=== PATIENT | female | born 1930 | race Caucasian/White ===

== ENCOUNTER 2016-06-22 16:40 | Inpatient (IN) | payer OTHER, MEDICARE ==
[~2016-06-22] VITALS: Ht 160 cm; Wt 55.3 kg
[~2016-06-22 16:40] MED LIST: ALPHAGAN P5 M1 OPH; CALCIUM 600/VIT1 TAB PO; CIPRO500 M1 PO; CIPROFLOXACIN500 M2 PO; DOCUSATE SODIU100 MG PO; DORZOLAMIDE HCL10 M1 OPH; DULERA 200 MCG/13 GM INH; FLAGYL500 MG PO; HYDROCHLOROTHIA25 M1 PO; LATANOPROST 2.2.5 ML OP; LEVSIN-SL0.125 MG SL; LISINOPRIL40 M1 PO; NASONEX0.05 MG/Ac NAS; OMEPRAZOLE40 M1 PO; PERCOCET 325 MG1 TA2 PO; PREDNISONE10 MG PO; PREDNISONE20 M1 PO; PREDNISONE5 M1 PO; PROVENTIL HFA6.7 GM INH; SENOKOT NATURA8.6 MG PO; SENOKOT8.6 M2 PO; SPIRIVA18 MCG INH; SYMBICORT 160/41 PUF INH; Senokot S PO; THEOPHYLLINE A200 MG PO; THEOPHYLLINE400 MG PO; ULTRAM50 M1 PO; VITAMIN D2000 UNIT PO; VITAMIN D400 I1 PO; XALATAN2.5 ML OPH; XANAX0.5 M1 PO; ZOFRAN ODT4 M1 SL
--- NOTE | 2016-06-22 16:43 | ED GENERAL ADULT ---
See Addendum History of Present Illness General Chief Complaint: Low Back Pain/Injury Stated Complaint: BIBA FOR LOW BACK PAIN Source: patient, family Exam Limitations: no limitations Vital Signs & Intake/Output Vital Signs & Intake/Output Vital Signs Date Time Temp Pulse Resp B/P Pulse O2 O2 Flow FiO2 Ox Delivery Rate 06/22 1911 98.0 101 22 135/96 95 Nasal 5.0L Cannula 06/22 1738 95 Nasal 5.0L Cannula 06/22 1646 97.8 89 24 145/69 96 Nasal 6.0L Cannula Allergies Coded Allergies: Penicillins (Severe, HIVES, RASH 06/22/16) Uncoded Allergies: POLLENS (UNKNOWN 04/08/14) Reconcile Medications Albuterol Sulfate (Proventil Hfa) 90 MCG HFA.AER.AD 2 PUFF INH Q4P PRN SOB ( Reported) Alprazolam (Xanax) 0.5 MG TABLET 1 TAB PO QPM PRN ANXIETY (Reported) Brimonidine Tartrate (Brimonidine Tartrate 10 Ml) 0.15 % DROPS 1 DROP OP BID GLAUCOMA (Reported) Cholecalciferol (Vitamin D3) 1,000 UNIT TABLET 2 TAB PO DAILY SUPPLEMENT ( Reported) Dorzolamide HCl 2 % DROPS 1 GTT OPH BID GLAUCOMA (Reported) Furosemide 20 MG TABLET 1 TAB PO DAILY EDEMA (Reported) Hydrochlorothiazide (Hydrodiuril 25 MG Tab) 25 MG TABLET 1 TAB PO DAILY BP ( Reported) Hydrochlorothiazide 12.5 MG CAPSULE 1 CAP PO DAILY BP (Reported) Latanoprost (Xalatan) 2.5 ML DROPS 1 GTT OPH QPM GLAUCOMA (Reported) BOTH EYES Lisinopril 40 MG TABLET 1 TAB PO DAILY BP (Reported) Melatonin 5 MG CAPSULE 1 CAP PO QPM INSOMNIA (Reported) Mometasone Furoate (Nasonex) 50 MCG SPRAY.PUMP 1 SPRAY NASB DAILY NEEDED NASAL CONGESTION (Reported) Mometasone/Formoterol (Dulera 200 Mcg/5 Mcg Inhaler) 13 GM HFA.AER.AD 2 PUF INH BID COPD (Reported) Omeprazole 40 MG CAPSULE.DR 1 CAP PO DAILY AC HEARTBURN (Reported) Prednisone 5 MG TABLET 1 TAB PO DAILY COPD (Reported) take 10mg on 10/30/15 then take 5mg daily x 10days then stop! please see your sales and marketing representative prior to stopping. Theophylline Anhydrous (Theophylline) 400 MG TABLET.ER 0.5 TAB PO BID COPD ( Reported) Tiotropium Foley (Spiriva) 18 MCG CAP.W.DEV 1 CAP INH DAILY EMPHYSEMA ( Reported) Tramadol HCl (Ultram) 50 MG TABLET 1 TAB PO BIDP PRN PAIN (Reported) Triage Nurses Notes Reviewed? yes Onset: Abrupt Duration: day(s): Timing: recent history HPI: 06/22/16 5:30 PM 86-year-old female presents to the emergency department for severe low back pain. The patient came in by ambulance for back pain that's been going on for 5 days. The onset of the symptoms were abrupt, the duration has been 5 days, the severity significant is as her symptoms required her to come to the emergency department by ambulance for care. She has no associated fever abdominal pain or other complaints. She says that the pain is exacerbated by movement. She has a past medical history of severe end-stage COPD she is currently on 6 L home O2, on physical exam she does have significant tenderness to the lower lumbar spine. She is on tramadol and gets relief from this. She has no bowel or bladder dysfunction Past History Travel History Traveled to [place] past 21 day No Medical History Any Pertinent Medical History? see below for history Neurological: NONE EENT: glaucoma, OXYGEN DEPEDENT 5L AT [employer] Cardiovascular: hypertension, hyperlipidemia Respiratory: COPD (O2 dependent (5L at home)), emphysema Gastrointestinal: GERD Hepatic: NONE Renal: NONE Musculoskeletal: NONE Psychiatric: anxiety Endocrine: NONE Blood Disorders: NONE Cancer(s): NONE FIELD AIDE/Reproductive: NONE Other Medical Hx: vitamin D deficiency History of MRSA: No History of VRE: No History of CDIFF: No Pneumonia Vaccine: 01/07/15 Tetanus Vaccine: 04/09/14 Surgical History Surgical History: appendectomy Psychosocial History Who do you live with Son Services at Home Home Health Aide What is your primary language Citizen [place] Family History Family History, If Any: FATHER CVA Hx Contributory? No Review of Systems Review of Systems Constitutional: Denies: fever. EENTM: Denies: visual changes. Respiratory: Denies: short of breath (sob chronic on dong, not today). Cardiovascular: Denies: chest pain. GI: Denies: abdominal pain. Genitourinary: Reports: no symptoms. Musculoskeletal: Reports: back pain. Skin: Denies: rash. Neurological/Psychological: Denies: weakness. Hematologic/Endocrine: Denies: bleeding. Immunologic/Allergic: Reports: no symptoms. Physical Exam Physical Exam General Appearance: alert, awake, anxious, mild distress Head: atraumatic, normal appearance Eyes: Bilateral: normal appearance, PERRL, EOMI. Ears, Nose, Throat: normal pharynx, normal ENT inspection Neck: normal inspection, supple, full range of motion Respiratory: no respiratory distress, decreased breath sounds Cardiovascular: regular rate/rhythm Peripheral Pulses: 4+ radial (R), 4+ radial (L) Gastrointestinal: non-tender Back: decreased range of motion Extremities: no edema Neurologic/Psych: no motor/sensory deficits, awake, alert, oriented x 3 Skin: intact, normal color, warm/dry Core Measures ACS in differential dx? No CVA/TIA Diagnosis: No Severe Sepsis Present: No Septic Shock Present: No Progress Differential Diagnoses I considered the following diagnoses in my evaluation of the patient: [ Impression fracture, disc herniation, lumbar strain, epidural abscess, transverse myelitis] Plan of Care: Orders Procedure Date/time Status XRY-PORTABLE CHEST XRAY 06/22 1917 Active URINALYSIS 06/22 1917 Active COMPREHENSIVE METABOLIC PANEL 06/22 1917 Active CBC WITHOUT DIFFERENTIAL 06/22 1917 Active EKG 06/22 1917 Active Initial ED EKG: none Departure Departure Disposition: STILL A PATIENT Condition: Stable Clinical Impression Primary Impression: Back pain Referrals: KELTON LONG,DEVANTE [place] (PCP/Family) Departure Forms: Customer Survey General Discharge Information Comments Patient CT shows severe spinal stenosis and arthritis. She is unable to ambulate. Labs will be sent. She is for case management evaluation and likely PT consult in the a.m. IMPRESSION: No compression fractures. Moderate leftward curvature of the lumbar spine with significant degenerative endplate changes at L3-L4 lateralized to the right side. Moderate central canal stenosis at this level. Mild to moderate central canal stenosis at L2-L3 as a result of spondylosis. Mild anterior subluxation at L4-L5 with advanced facet arthropathy and degenerative disc disease resulting in severe central canal stenosis. DICTATED BY: ESTIVEN GALLEGOS MD DATE/TIME DICTATED:06/22/161831 MATERNITY FLOOR SUPERVISOR:LANRE DATE/TIME TRANSCRIBED:06/22/161831 CONFIDENTIAL, DO NOT COPY WITHOUT APPROPRIATE AUTHORIZATION. <Electronically signed in Other Vendor System> SIGNED BY: ESTIVEN GALLEGOS MD [id number] Critical Care Note Critical Care Note Critical Care Time: non-applicable
--- NOTE | 2016-06-22 16:57 | NUR ---
PT BIBA FROM HOME C/C LOW BACK PAIN X 3-4 DAYS. NO INJURY OR AGGRAVATING FACTOR. STATES PAIN IS POSITIONAL. CURRENTLY ON STRETCHER RATES PAIN 2/10. TAKES TRAMADOL BID AT BASELINE BUT HAS NOT TAKEN ANY ADDITIONAL PAIN MEDICATIONS. PMHX INCLUDES EMPHYSEMA AND O2 DEPENDENT AT 5-7L AT BASELINE. STATES SHE USES 7L AT TIMES WHEN SHE IS ESPECIALLY EXERTIONAL AND BREATHING FEELS OK NOW ON 5L. SATS 98%.
--- NOTE | 2016-06-22 17:18 | NUR ---
DR BERMUDEZ INTO EVALUATE
[2016-06-22] MEDS ORDERED: FUROSEMIDE20 M1 PO (17:23)
[2016-06-22] MEDS ORDERED: HYDROCHLOROTH12.5 M3 PO (17:23)
[2016-06-22] MEDS ORDERED: VITAMIN D31000 UNI2 PO (17:27)
[2016-06-22] MEDS ORDERED: NASONEX17 GM NASB ×2 (17:29→17:30)
[2016-06-22] MEDS ORDERED: MELATONIN5 M5 PO (17:31)
--- NOTE | 2016-06-22 17:38 | NUR ---
PT MEDICATED WITH ULTRAM PER ORDERS
--- NOTE | 2016-06-22 18:47 | NUR ---
CT SCAN RESULTS PENDING
--- NOTE | 2016-06-22 18:49 | CT SCAN REPORT ---
EXAMINATION: CT LUMBAR SPINE WITHOUT CONTRAST CLINICAL INFORMATION: Back pain. Rule out compression fracture. COMPARISON: CT from 10/25/2015. TECHNIQUE: Helical non-contrast CT images were obtained through the lumbar spine and 1.25 and 2.5 mm axial reconstructions were reviewed along with sagittal and coronal MPRs. DLP: 330.1 mGy-cm FINDINGS: There is a moderate leftward curvature of the mid lumbar spine. Severe degenerative endplate changes are noted on the right side at the L3-L4 level with osteophyte formation, sclerosis, and vacuum disc phenomenon. There is a mild anterior subluxation at L4-L5. Exuberant multilevel facet arthropathy is present, most severe at L4-L5 and L5-S1 on the left side. The paraspinal soft tissues are normal. There is subsegmental atelectasis in the lung bases with extensive emphysema. Scattered sigmoid colon diverticulosis. There is a diffuse disc bulge and mild to moderate central canal stenosis with facet degeneration at L2-L3. At the L3-L4 level, there is moderate central canal stenosis with severe loss of disc height and degenerative endplate changes lateralize more so to the right side. Severe central canal stenosis is evident at L4-L5 with advanced facet arthropathy and thickening of the ligamentum flavum with a mild anterolisthesis. Extensive vascular calcifications present with tortuosity of the abdominal aorta. IMPRESSION: No compression fractures. Moderate leftward curvature of the lumbar spine with significant degenerative endplate changes at L3-L4 lateralized to the right side. Moderate central canal stenosis at this level. Mild to moderate central canal stenosis at L2-L3 as a result of spondylosis. Mild anterior subluxation at L4-L5 with advanced facet arthropathy and degenerative disc disease resulting in severe central canal stenosis.
--- NOTE | 2016-06-22 19:52 | RADIOLOGY REPORT ---
EXAMINATION: CHEST 1 VIEW CLINICAL INFORMATION: Pain. COMPARISON: 10/21/2015. TECHNIQUE: An AP view of the chest is provided. FINDINGS: The cardiac silhouette is not enlarged. The mediastinal and hilar contours are unremarkable. There are neither pleural effusions nor pneumothoraces. There is streaky bibasilar opacification. The osseous structures are stable. IMPRESSION: Nonspecific streaky bibasilar opacification. This likely corresponds to atelectasis, though a developing infiltrate is difficult to exclude. Recommendation is for a followup chest series to be obtained following treatment and/or resolution of symptoms to assure resolution of this appearance.
--- NOTE | 2016-06-22 20:01 | NUR ---
EKG AND LABS DONE(BLUE,SST,LAV,SUÁREZ)
[2016-06-22 20:17] LABS: ABSOLUTE BASOPHIL COUNT 0 /CUMM (0.0-0.2); ABSOLUTE EOSINOPHIL COUNT 0.3 /CUMM (0.0-0.7); ABSOLUTE GRANULOCYTE CT 6.7 /CUMM (1.4-6.5); ABSOLUTE LYMPH COUNT 1.1 /CUMM (1.2-3.4); ABSOLUTE MONOCYTE COUNT 0.8 /CUMM (0.10-0.60); BASOPHIL % 0.2 % (0.0-2.0); GRANULOCYTE % 75.5 % (42.2-75.2); HEMATOCRIT 39.1 % (37-47); MEAN CORPUSCULAR HGB 30.3 PG (27.0-31.0); MEAN CORPUSCULAR HGB CONC 32.7 G/DL (33.0-37.0); MEAN CORPUSCULAR VOLUME 92.7 FL (81.0-99.0); PLATELET COUNT 233 /CUMM (130-400); RBC DISTRIBUTION WIDTH 13.7 % (11.5-14.5); RED BLOOD CELL CT 4.22 /CUMM (4.20-5.40); WHITE BLOOD CELL COUNT 8.9 /CUMM (4.8-10.8)
--- NOTE | 2016-06-22 20:25 | NUR ---
PT C/O 12/16 PAIN. PT MEDICATED WITH PAIN MEDS PER ORDER.
--- NOTE | 2016-06-22 20:35 | NUR ---
PT REPORTS FEELING SOB. PT REPORTS ONLY INHALER WORKING. PT MEDICATED WITH INHALER PER ORDER.
--- NOTE | 2016-06-22 20:54 | NUR ---
PT DENIES PAIN AFTER BEING MEDICATED
--- NOTE | 2016-06-22 21:11 | NUR ---
PT TO BEDSIDE COMMODE,URINE TRIO SENT
--- NOTE | 2016-06-22 21:17 | NUR ---
PT APPEARS TO BE RESTING COMFORTBALY. RESP UNLABORED. PT REPORTS BREATHING IMPROVING AFTER INHALER. 100% 5 L NC. DENIES PAIN. WILL CONTINUE TO MONITOR.
[2016-06-22] MEDS ORDERED: ALPRAZOLAM0.25 M1 PO (21:45)
[2016-06-22] MEDS ORDERED: LATANOPROST2.5 ML OPH (21:45)
[2016-06-22] MEDS ORDERED: SPIRIVA RESPIMAT4 GM INH (22:03)
[2016-06-22] MEDS ORDERED: POTASSIUM CHLO20 ME2 PO (22:03)
--- NOTE | 2016-06-22 22:30 | NUR ---
PT AMBULATED. INCREASE SOB NOTED. PULSE OX DROPPED TO 90% WHILE AMBULATING WITH 4 L NC.
--- NOTE | 2016-06-22 22:43 | NUR ---
ATTEMPTED TO AMBULATED PT. PT AMBULATED BUT UNABLE TO AMBULATE PASS THE ROOM DOOR DUE TO WEAKNESS AND BEING UNSTEADY ON FEET. INCREASE SOB NOTED. PT PULSE OX DROPPED TO 90% 4 L NC.
--- NOTE | 2016-06-22 23:15 | History & Physical ---
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 Patient claims that she is having gradually progressive back pain since last 5-7 days, which is located in lower back, 02/15, nonradiating, relieved by taking rest and having no movement in the body, aggravated by any kind of movements. She denies trauma, fall, incontinence of stool in the urine, tingling and numbness in the lower legs, pain in the lower abdomen, dysuria, fever, chills. She is a known case of end-stage COPD on nebulization on 5 liters of home oxygen. She was on tablet prednisone 5 milligrams once a day. She is using 3 pillows at baseline and cannot walk more than 2-5 steps without having difficulty in breathing. Now today she is not able to complete a sentence without difficulty in breathing. She is following Dr. Seals. She is taking tramadol since last 6 years, which she started because she had spontaneous fracture. Personal history-she quit the smoking 30 years ago, she occasionally drinks alcohol, she is living alone at home. 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 yes Review of Systems Review of Systems Constitutional: Reports: weakness. Denies: chills, diaphoresis, fever. EENTM: Denies: no symptoms. Cardiovascular: Reports: orthopena, palpitations. Denies: chest pain, edema, peripheral edema, syncope. Respiratory: Reports: orthopnea, short of breath. Denies: cough, hemoptysis, sputum production, wheezing. GI: Denies: abdominal pain, bloating, constipation, diarrhea, distention, bowel incontinence, melena, nausea, bloody stool. Genitourinary: Denies: discharge, dysuria, frequency, hematuria, hesitation. Musculoskeletal: Reports: back pain, joint pain, joint swelling. Skin: Reports: erythema. Neurological/Psychological: Reports: anxiety, dementia. Exam & Diagnostic Data Last 24 Hrs of Vital Signs/I&O Vital Signs Date Time Temp Pulse Resp B/P Pulse O2 O2 Flow FiO2 Ox Delivery Rate 06/22 2232 98.3 96 24 169/79 97 Nasal 5.0L Cannula 06/22 2100 98.3 76 20 172/74 99 Nasal Cannula 06/22 1912 98.0 101 22 135/96 95 Nasal 5.0L Cannula 06/22 1738 95 Nasal 5.0L Cannula 06/22 1646 97.8 89 24 145/69 96 Nasal 6.0L Cannula Intake & Output 06/23 0800 06/23 0000 06/22 1600 Intake Total 120 Output Total Balance 120 Intake, Oral 120 Patient 55.338 kg Weight Physical Exam General Appearance Alert, Oriented X3, Cooperative, No Acute Distress Skin erythema HEENT Atraumatic, PERRLA, EOMI Neck Supple, No JVD Cardiovascular Normal S1, Normal S2, murmur Lungs decrease air entry, she is not able to complete the sentence Abdomen Soft, No Tenderness Neurological Normal Speech Extremities No Clubbing, No Cyanosis, increased edema in the left lower limb than the right Vascular Normal Pulses, Pulses Symmetrical Assessment/Plan Assessment: Patient is a 86-year-old female with significant past medical history of 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 Vital signs at the time of admission-temperature 97.8, pulse 89, respiration 24, blood pressure 145 69, SPO2 96% on 5 liters of oxygen Chest [id number] streaky bibasilar opacification? Atelectasis CT Lumbar spine without contrast-no compression fractures, degenerative endplate changes and moderate central canal stenosis at L3-L4, mild to moderate central canal stenosis at L2 to L3, mild anterior subluxation at L4 to L5 with advanced facet arthropathy and degenerative disc disease resulting in severe central canal stenosis Pertinent labs-creatinine 1.1, serum theophylline level-4.5,urine ketones - trace. Problem list- Moderate to severe central canal stenosis at L2-L3, L3-L4, L4-L5 End-stage COPD on 5 liter of oxygen and steroid Hypertension History of cholelithiasis and cholecystitis Plan- * We'll admit the patient in general medical floor * We will give oxygen with target SPO2 of more than 92% * TRC/nebulization * We will add pain killer including tramadol as before * We'll hold furosemide and hydrochlorothiazide, because of the high creatinine * We will follow BEP regularly * We'll continue tablet prednisone 5 milligrams daily * We will place a consult for pulmonology/Dr. Seals in the morning * Will do Doppler ultrasound of lower extremity to rule out DVT * PT/OT * CODE STATUS-DNR/DNI * Diet-heart healthy diet * DVT prophylaxis-ALP S/haprine As Ranked By This Provider Problem List: 1. COPD (chronic obstructive pulmonary disease) 2. Choledocholithiasis 3. HTN (hypertension) Core Measures/Miscellaneous Acute Coronary Syndrome ACS Diagnosis: No Cerebrovascular Accident CVA/TIA Diagnosis: No Congestive Heart Failure CHF Diagnosis: No Venous Thromboembolism VTE Risk Factors: Age > 40 VTE Prophylaxis Ordered Inpt: Mechanical (ALPS/TEDS) No Mech VTE prophylaxis d/t: No contraindications No VTE Pharm Prophylaxis d/t: No contraindications VTE Diagnosis: No VTE Type: NONE VTE Confirmed by (Test): NONE Severe Sepsis Severe Sepsis Present: No Septic Shock Septic Shock Present: No Miscellaneous Documentation Attending Case Discussed With: MIGUEL ÁNGEL ZIMMERMAN MD Primary Care Physician: MANCHER MD,DEVANTE E. Patient sees these Specialists Dr. Seals Level of Patient Care: General Medicine EVARISTO MEJIA 06/22/16 2315: General Information and HPI Allergies/Medications Home Med list Albuterol Sulfate (Proventil Hfa) 90 MCG HFA.AER.AD 2 PUF INH Q4 PRN SOB ( Reported) Alprazolam 0.25 MG TABLET 2 TAB PO 2300 SLEEP (Reported) Brimonidine Tartrate (Alphagan P) (Unknown Strength) DROPS 1 DROP OPH BID GLAUCOMA - BOTH EYES (Reported) Cholecalciferol (Vitamin D3) 1,000 UNIT TABLET 2 TAB PO QAM SUPPLEMENT ( Reported) Dorzolamide HCl 2 % DROPS 1 GTT OPH BID GLAUCOMA - BOTH EYES (Reported) Furosemide 20 MG TABLET 1 TAB PO QAM EDEMA (Reported) Hydrochlorothiazide 12.5 MG CAPSULE 1 CAP PO QAM BP (Reported) Latanoprost (Xalatan) 2.5 ML DROPS 1 GTT OPH 1900 GLAUCOMA (Reported) BOTH EYES Mometasone Furoate (Nasonex) 50 MCG SPRAY.PUMP 1 SPRAY NASB DAILY NEEDED NASAL CONGESTION (Reported) Mometasone/Formoterol (Dulera 200 Mcg/5 Mcg Inhaler) 13 GM HFA.AER.AD 2 PUF INH Q12H COPD (Reported) Omeprazole 40 MG CAPSULE.DR 1 CAP PO DAILY AC HEARTBURN (Reported) Potassium Chloride 20 MEQ TAB.ER.PRT 1 TAB PO DAILY SUPPLEMENT (Reported) Prednisone 5 MG TABLET 1 TAB PO QAM COPD (Reported) take 10mg on 10/30/15 then take 5mg daily x 10days then stop! please see your director case management prior to stopping. Theophylline Anhydrous (Theophylline) 400 MG TABLET.ER 0.5 TAB PO QAM COPD ( Reported) Tiotropium [place] (Spiriva Respimat) 2.5 MCG/ACTUATION MIST.INHAL 2 PUFF INH QAM COPD (Reported) Tramadol HCl (Ultram) 50 MG TABLET 1 TAB PO BIDP PRN PAIN (Reported) Resident Review Statement Resident Statement: examined this patient, discussed with corporate communications intern, agreed with corporate communications intern Other Findings: Patient is 86-year-old female with past medical history significant for end-stage COPD/emphysema on 5 L of oxygen at home, hypertension and chronic pain came with chief complaint of his severe worsening back pain for 1 week. Patient endorses that she had some indigestion 2 weeks ago but that was relieved with Pepcid. She start having low back pain/lumbar region started a week ago gradually is getting worse to the point she graded this 8 out of 10, nonradiating with no association of numbness or tingling in her extremities and minimal relief with pain medications at home. There is no urinary or fecal incontinence. Her pain get worse with slight movement and slight relief with tramadol. She denied chest pain, palpitations, headache, dizziness, nausea, vomiting any urinary or bowel complaints. She is very short of breath and not able to speak in full sentences without getting short of breath for a long period of time but her condition is worsening gradually. Ryan Seals MD is her director case management. She is on chronic prednisone and had recent taper as well. She mentioned in her interview that she is compliant with her inhalers but does not want to use nebulizers. While patient was in ER her back pain get little better but on ambulation she dropped her oxygen saturation to 90% Vital signs at admission were temperature 97.8, pulse 89, respiratory rate 24, blood pressure 145/69 mmHg and she said was saturating 96% on 6 L of nasal cannula oxygen. Labs on admission were WBC count 8.9, hemoglobin 12.8, hematocrit 39.1, platelet count 233, sodium 137, potassium 3.9, chloride 91, the urine 24 and creatinine 1.1. Spinal CAT scan showed no compression fractures, moderate leftward curvature of lumbar spine with significant degenerative endplate changes at L3/L4 and moderate central canal stenosis. Physical exam Alert and oriented 3, labored breathing with accessory respiratory muscle use Neck supple Chest reduced air entry Heart S1-S2 with no added sounds Abdomen soft with normal bowel sounds Back showed paraspinal tenderness over lumbar region especially on right paraspinal area Extremities showed left lower extremity trace edema Assessment and plan Patient is 86 years old female with past medical history significant for end-stage COPD/emphysema on 5 L home oxygen, hypertension and chronic pain came with chief complaint of severe lumbar region back pain with no evidence of compression fracture on CAT scan most likely musculoskeletal in origin and hypoxia on ambulation most likely due to underlying end-stage COPD. Problem list 1. Severe back pain/spinal stenosis 2. Chronic respiratory failure/end-stage oxygen dependent COPD 3. History of hypertension 4. History of chronic pain/compression fracture 5. History of anxiety Plan We will admit patient to general medical floor Patient is on chronic prednisone 5 mg daily we will continue that and hold off IV prednisone and will request Dr. Seals to evaluate patient in a.m. Adequate analgesia for pain control PT/OT evaluation and treatment TRC and nebulization Chest physical therapy We will continue on her home medications except Lasix and hydrochlorothiazide because of elevated creatinine most likely a AK I and we will send BP in a.m. if needed can give gentle hydration later. On examination she has trace left lower extremity edema more than right BUT CHRONIC Regular Diet Pharmacological DVT prophylaxis Patient is DNI DNR MIGUEL ÁNGEL ZIMMERMAN 06/23/16 0336: Attending MD Review Statement Attending Statement Attending MD Statement: examined this patient, discuss w/resident/PA/SEARCH ENGINE MARKETING STRATEGIST, agreed w/resident/PA/SEARCH ENGINE MARKETING STRATEGIST, reviewed EMR data (avail), reviewed images, amended to note Attending Assessment/Plan: CC: Right-sided low back pain PMH: COPD/emphysema 5 L NC, HTN, HLD, anxiety She came to the ER for severe low back pain, by ambulance. The back pain has been going on for 5 days. The onset of the symptoms were abrupt, does not recall trauma or fall. She is lot of difficulty ambulating around home because of her severe shortness of breath, she has not been going out a lot. She could not go to PCP for this reason, so she came to ER as the pain was not bearable anymore. The pain relieved after pain medications in ER, aggravated by movements. She has no associated fever, abdominal pain, nausea, vomiting, urinary symptoms, bowel or bladder incontinence or other complaints. Patient has been feeling very poorly since last 2 months gradually worsening shortness of breath. Functionality is markedly limited because of progression of the disease. Markedly decreased appetite. Her home medications included Lasix, lisinopril, HCTZ. A lot of changes had been made back and forth regarding this medications by director case management and PCP separately . Patient is confused and wants to speak to Dr. Seals about clarifying the home medications. More so with HCTZ and Lasix. She gets on and off bilateral leg swellings, weight gain which was getting better with Lasix and HCTZ, but her blood pressure was in softer range in PCP office so HCTZ was stopped, eventually resumed again at lower dose. She has severe end-stage COPD she is currently on 6 L home O2. She is aware of her severe disease and progression but her goal is to at least walk around in house without discomfort. Her back pain improved after receiving tramadol, Toradol in ER. She was evaluated for ambulation when her O2 saturation dropped to 90% and she became visibly dyspneic so we were suggested to admit patient. Vitals: Afebrile, HR, BP in in acceptable range. Tachypneic with on R 24 requiring 5 L nasal cannula to saturate at 97%. On exam: Thin built, obvious respiratory distress, accessory muscles and work, talks small sentences a O 3, no JVD, no lymphadenopathy, mucosa moist, neck supple. CVS: S1-S2, RRR. RS: Markedly decreased air entry bilaterally with prolonged expiration. No obvious wheeze heard. Abdomen: Soft, NT, ND, Carrasco's sign negative, no epigastric tenderness, bowel sounds present. Tenderness over right lower aspect of back, no bony tenderness, no obvious lesions. Skin intact, no inflammations. No focal neurological deficit. No obvious pitting edema on lower extremity Labs: CBC, BMP, LFT unremarkable Except Bicarbonate 35, BUN 24 Creatinine is mildly elevated to 1.1. UA unremarkable CXR: Nonspecific streaky bibasilar opacification. This likely corresponds to atelectasis, though a developing infiltrate is difficult to exclude. CT lumbar spine without IV contrast: No compression fractures. Moderate leftward curvature of the lumbar spine with significant degenerative endplate changes at L3-L4 lateralized to the right side. Moderate central canal stenosis at this level. Mild to moderate central canal stenosis at L2-L3 as a result of spondylosis. Mild anterior subluxation at L4-L5 with advanced facet arthropathy and degenerative disc disease resulting in severe central canal stenosis. A and P #1 right-sided low back pain: Patient has degenerative endplate changes at L3-L4 lateralizing to the right side. Probably radiculopathy pain, no obvious fractures, no obvious neurological deficits, no evidence of cord compression. Continue pain management with tramadol and Percocet, OT PT evaluation in a.m. #2 COPD/ emphysema: Chronic progressive worsening. Less likely acute exacerbation at this point. I offered a short course of by mouth prednisone to her but she refuses any medications for now until she talks with Dr. Seals, please consult Ryan Seals MD in a.m. continue all her home medications for COPD pro-air inhalations every 4 hours, scheduled Symbicort and Spiriva, Continue O2 by nasal cannula. #3 I offered her 2-D echo to evaluate cardiac functioning and strain secondary to pulmonary disease, because of her recurrent lower extremity edema. Patient wants to discuss that with Dr. Seals. Check proBNP sampling lab. #4 HTN : Hold all her antihypertensives for mildly elevated creatinine, resume in a.m. according to her repeat labs. #5 DVT prophylaxis with heparin
--- NOTE | 2016-06-22 23:58 | NUR ---
BED ASSIGNMENT [id number]
--- NOTE | 2016-06-23 02:00 | NUR ---
PT A&0x3, DENIES PAIN AT THIS TIME. VSS, 5L HUMIDIFIED NC. ORIENTED TO ROOM AND CALL GREY IN REACH.
[2016-06-23 02:03] VITALS: BP 110/80
--- NOTE | 2016-06-23 03:39 | Admission Certification ---
Admission Certification Certification Statement - As attending physician, I certify that at the time of - admission, based on clinical presentation, severity of - symptoms, need for further diagnostic testing and - therapeutic interventions, and risk of adverse outcomes - without in-hospital treatment, in my clinical assessment, - this patient requires an acute hospital stay for a minimum - of two nights or longer. I have also considered psychsocial - factors such as support system, advanced age, financial - issues, cognitive issues, and failed out-patient treatments, - past re-admission history, safety of patient, and lack of - compliance as applicable. Specific rationale supporting this admission is: Intractable back pain, severe COPD with hypoxia
[2016-06-23 05:32] VITALS: BP 140/68
--- NOTE | 2016-06-23 07:58 | PN- Housestaff ---
CLIFFORD BRIONES 06/23/16 0757: Subjective Follow-up For: Back pain Subjective: She was uncomfortable this morning. Did not have any complaints stated that she feels improved compared to yesterday. Oxygen saturations remained in the range of 94-96% on 5 L. Remained afebrile overnight. States that she feels improved compared to yesterday. After receiving pain medications, she feels improved. Review of Systems Constitutional: Reports: see HPI. Objective Last 24 Hrs of Vital Signs/I&O Vital Signs Date Time Temp Pulse Resp B/P Pulse O2 O2 Flow FiO2 Ox Delivery Rate 06/23 0532 97.9 74 20 140/68 96 Nasal 5.0L Cannula 06/23 0203 97.9 86 24 110/80 97 Nasal 5.0L Cannula 06/23 0200 96 Nasal 5.0L Cannula 06/22 2232 98.3 96 24 169/79 97 Nasal 5.0L Cannula 06/22 2100 98.3 76 20 172/74 99 Nasal Cannula 06/22 1912 98.0 101 22 135/96 95 Nasal 5.0L Cannula 06/22 1738 95 Nasal 5.0L Cannula 06/22 1646 97.8 89 24 145/69 96 Nasal 6.0L Cannula Intake & Output 06/23 0800 06/23 0000 06/22 1600 Intake Total 250 120 Output Total Balance 250 120 Intake, IV 10 Intake, Oral 240 120 Patient 122 lb 122 lb Weight Physical Exam General Appearance: No Acute Distress Other Physical Findings: General Exam: AAOx3, No acute distress, Skin: No rashes, no breakdown HEENT: PERRLA, EOMI Neck: Supple, No JVD No cervical lymphadenopathy CVS: Reg Rate, Normal S1,S2, No MGR Resp: Normal air entry, no ronchi/rales Abdomen: Soft, No tenderness, Normal Bowel Sounds Neuro: Normal Speech, Strength 5/5 b/l x 4 extremities, Sensation intact, CN III -XII NL, Reflexes 2+ Extremities: No cyanosis, pedal edema Current Medications: Current Medications Sig/Juan Carlos Start time Last Medication Dose Route Stop Time Status Admin Acetaminophen 650 MG Q6P PRN 06/22 2330 AC PO Acetaminophen/ 1 TAB Q6P PRN 06/22 2359 DC Hydrocodone Bitart PO Albuterol Sulfate 2 PUF Q4P PRN 06/23 0130 AC 06/23 INH 0751 Albuterol Sulfate 2 PUF Q4P PRN 06/22 2200 DC 06/23 INH 0015 Albuterol Sulfate 2 PUF ONCE ONE 06/22 2030 DC 06/22 INH 06/22 Alprazolam 0.5 MG 2300 06/23 2300 AC 06/23 PO 06/30 2259 0159 Budesonide/ 2 PUF BID 06/23 1000 DC Formoterol Fumarate INH Budesonide/ 2 PUF BID 06/23 0245 AC 06/23 Formoterol Fumarate INH 0751 Heparin Sodium 0 .STK-MED ONE 06/22 2350 DC (Porcine) .ROUTE Heparin Sodium 5,000 UNIT Q8 06/22 2326 AC 06/23 (Porcine) SC 0720 Hydromorphone HCl 0.5 MG Q4P PRN 06/22 2330 DC IV Ketorolac 0 .STK-MED ONE 06/22 2011 DC Tromethamine .ROUTE Ketorolac 15 MG ONCE ONE 06/22 1930 DC 06/22 Tromethamine IV 06/22 Lidocaine 1 PAT DAILY 06/23 1000 AC EXT Methylprednisolone 0 .STK-MED ONE 06/22 2011 DC .ROUTE Methylprednisolone 125 MG ONCE ONE 06/22 1930 DC 06/22 IV 06/22 Morphine Sulfate 0 .STK-MED ONE 06/22 2010 DC .ROUTE Morphine Sulfate 2 MG ONCE ONE 06/22 1930 DC 06/22 IV 06/22 Omeprazole 40 MG DAILY AC 06/23 0700 AC 06/23 PO 0720 Oxycodone HCl 10 MG Q4P PRN 06/23 0230 AC PO Oxycodone/ 1 TAB Q4P PRN 06/23 0145 AC Acetaminophen PO Oxycodone/ 2 TAB Q4P PRN 06/23 0145 CAN Acetaminophen PO Prednisone 5 MG DAILY 06/23 1000 AC PO Theophylline 200 MG DAILY 06/23 1000 AC PO Tiotropium [place] 1 PUF DAILY 06/23 1000 AC 06/23 INH 0751 Tramadol HCl 50 MG BID 06/23 1000 AC PO Tramadol HCl 0 .STK-MED ONE 06/22 1736 DC PO Tramadol HCl 50 MG ONCE ONE 06/22 1730 DC 06/22 PO 06/22 1731 1738 Last 24 Hrs of Lab/Jb Results Last 24 Hrs of Labs/Mics: Laboratory Tests 06/23/16 0640: Sodium Pending, Potassium Pending, Chloride Pending, Carbon Dioxide Pending, Anion Gap Pending, BUN Pending, Creatinine Pending, BUN/Creatinine Ratio Pending , CBC w Diff Pending, WBC Pending, RBC Pending, Hgb Pending, Hct Pending, MCV Pending, MCH Pending, RDW Pending, Plt Count Pending, MPV Pending, PUBS MCHC Pending 06/22/160: Urine Color YEL, Urine Clarity CLEAR, Urine pH 6.0, Ur Specific [place] 1.020, Urine Protein NEG, Urine Ketones TRACE H, Urine Nitrite NEG, Urine Bilirubin NEG, Urine Urobilinogen 0.2, Ur Leukocyte Esterase NEG, Ur Microscopic EXAM NOT REQUIRED, Urine Hemoglobin NEG, Urine Glucose NEG 06/22/161999: Anion Gap 11, Estimated GFR 47 L, BUN/Creatinine Ratio 21.8, Glucose 101 H, Calcium 9.4, Total Bilirubin 0.4, AST 23, ALT 44, Alkaline Phosphatase 118, Pro- B-Natriuretic Pept 1720 H, Total Protein 6.5, Albumin 3.4 L, Globulin 3.1, Albumin/Globulin Ratio 1.1, CBC w Diff NO MAN DIFF REQ, RBC 4.22, MCV 92.7, MCH 30.3, RDW 13.7, MPV 8.0, Gran % 75.5 H, Lymphocytes % 12.1 L, Monocytes % 9.2, Eosinophils % 3.0, Basophils % 0.2, Absolute Granulocytes 6.7 H, Absolute Lymphocytes 1.1 L, Absolute Monocytes 0.8 H, Absolute Eosinophils 0.3, Absolute Basophils 0, PUBS MCHC 32.7 L, Theophylline 4.5 L Assessment/Plan Assessment: An older lady with a 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 No neurological signs. Remained afebrile overnight. Vitals are stable. At the time of admission, vitals-temperature 97.8, pulse rate 89, respiration 24 , blood pressure 145/69, pulse ox 96% on nasal cannula (5 L). Laboratory findings indicated-WBC 8.9, hemoglobin 12.8, platelets 233, sodium 137, potassium 3.8, bicarbonate 35 (baseline 32), BUN 24, serum creatinine 1.1 (0.8 baseline). ProBNP slightly elevated 1720 (baseline 715), urinalysis-clear. Radiological signs-chest x-ray indicated nonspecific streaky bibasilar opacities. CAT scan lumbar spine without contrast-revealed mild to moderate central canal stenosis at L2-L3. Also mild anterior subluxation of L4-L5 with advanced facet arthropathy and degenerative disc disease resulting in severe central canal stenosis was found. Differential diagnoses: #1 lumbar pedicle operative/back pain #2 COPD Below is the problem list and plan: #1 back pain-no neurological deficits. Likely because of canal stenosis and degenerative changes. No fractures were found. Since the patient was on prednisone for a long time, further studies such as DEXA scan could be done as an outpatient. Pain management with tramadol 50 mg by mouth twice a day, Lidoderm patch, Percocet 1 tablet every 4 when necessary. Physical therapy assessment-home physical therapy as part of discharge planning. Neurosurgical evaluation as an outpatient. Bowel regimen added. #2 COPD-no change compared to baseline. Continue tiotropium 1 puff daily inhalation, theophylline 200 mg by mouth daily, (low theophylline levels found this a.m.), continue home dose of prednisone 5 mg by mouth daily, Symbicort 2 puffs twice a day. #3 hypertension-currently losartan, hydrochlorothiazide on hold. Blood pressure stable. If she becomes hypertensive, we will start medications stat. #4 abnormal renal function-serum creatinine slightly elevated to 1.1. Continue to monitor. Avoid NSAIDs. #5 left lower extremity swelling-negative for DVT. Encourage ambulation. #6 glaucoma-continue her home medications of brimonidine, latanoprost, dorzolamide. #6 DVT prophylaxis-heparin subcutaneous. Problem List: 1. Emphysema lung 2. Back pain 3. COPD (chronic obstructive pulmonary disease) Pain Ratin Pain Location: Lower back Pain Goal: Pain 4 or less Pain Plan: Tramadol Percocet Tomorrow's Labs & Rationales: Basic electrolyte panel-patient had serum creatinine which was slightly elevated. CBC-patient had leukopenia. To monitor in the a.m. ALEX EAGLE MD 06/23/16 1115: Attending Review Statement Attending Statement Attending MD Statement: examined this patient, discuss w/resident/PA/TELEPHONE CLERK, agreed w/resident/PA/TELEPHONE CLERK, reviewed EMR data (avail), discussed with nursing, discussed with case mgmt, reviewed images, amended to note Attending Assessment/Plan: Patient seen and examined, feels slightly better. Patient was admitted with excruciating and intractable low back pain yesterday. 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 She is at her baseline of oxygen. CT Lumbar spine is consistent with no compression fractures. Moderate leftward curvature of the lumbar spine with significant degenerative endplate changes at L3-L4 lateralized to the right side. Moderate central canal stenosis at this level. Mild to moderate central canal stenosis at L2-L3 as a result of spondylosis. Mild anterior subluxation at L4-L5 with advanced facet arthropathy and degenerative disc disease resulting in severe central canal stenosis. Vital Signs Date Time Temp Pulse Resp B/P Pulse O2 O2 Flow FiO2 Ox Delivery Rate 06/23 0532 97.9 74 20 140/68 96 Nasal 5.0L Cannula 06/23 0203 97.9 86 24 110/80 97 Nasal 5.0L Cannula 06/23 0200 96 Nasal 5.0L Cannula 06/22 2232 98.3 96 24 169/79 97 Nasal 5.0L Cannula 06/22 2100 98.3 76 20 172/74 99 Nasal Cannula 06/22 1912 98.0 101 22 135/96 95 Nasal 5.0L Cannula 06/22 1738 95 Nasal 5.0L Cannula 06/22 1646 97.8 89 24 145/69 96 Nasal 6.0L Cannula on exam; aox3, nad. cv; s1, s2, rrr. resp; clear abd; soft, nt, bs+ ext; trace edema L>R. Laboratory Tests 06/23 06/22 0640 2110 Chemistry Sodium (137 - 145 mmol/L) 137 Potassium (3.5 - 5.1 mmol/L) 4.4 Chloride (98 - 107 mmol/L) 92 L Carbon Dioxide (22 - 30 mmol/L) 36 H Anion Gap (5 - 16) 9 BUN (7 - 17 mg/dL) 29 H Creatinine (0.5 - 1.0 mg/dL) 1.1 H Estimated GFR (>60 ml/min) 47 L BUN/Creatinine Ratio (7 - 25 %) 26.4 H Hematology CBC w Diff NO MAN DIFF REQ WBC (4.8 - 10.8 /CUMM) 4.2 L RBC (4.20 - 5.40 /CUMM) 3.97 L Hgb (12.0 - 16.0 G/DL) 12.1 Hct (37 - 47 %) 36.7 L MCV (81.0 - 99.0 FL) 92.6 MCH (27.0 - 31.0 PG) 30.6 RDW (11.5 - 14.5 %) 13.6 Plt Count (130 - 400 /CUMM) 214 MPV (7.4 - 10.4 FL) 9.1 Gran % (42.2 - 75.2 %) 85.0 H Lymphocytes % (20.5 - 51.1 %) 12.1 L Monocytes % (1.7 - 9.3 %) 2.5 Eosinophils % (0 - 5 %) 0.1 Basophils % (0.0 - 2.0 %) 0.3 Absolute Granulocytes (1.4 - 6.5 /CUMM) 3.6 Absolute Lymphocytes (1.2 - 3.4 /CUMM) 0.5 L Absolute Monocytes (0.10 - 0.60 /CUMM) 0.1 L Absolute Eosinophils (0.0 - 0.7 /CUMM) 0 Absolute Basophils (0.0 - 0.2 /CUMM) 0 PUBS MCHC (33.0 - 37.0 G/DL) 33.1 Urines Urine Color (YEL,AMB,STR) YEL Urine Clarity (CLEAR) CLEAR Urine pH (5.0 - 8.0) 6.0 Ur Specific [place] (1.001 - 1.035) 1.020 Urine Protein (NEG,<30 MG/DL) NEG Urine Ketones (NEG) TRACE H Urine Nitrite (NEG) NEG Urine Bilirubin (NEG) NEG Urine Urobilinogen (0.1 - 1.0 EU/dl) 0.2 Ur Leukocyte Esterase (NEG) NEG Ur Microscopic EXAM NOT REQUIRED Urine Hemoglobin (NEG) NEG Urine Glucose (N MG/DL) NEG 06/22 1999 Chemistry Sodium (137 - 145 mmol/L) 137 Potassium (3.5 - 5.1 mmol/L) 3.8 Chloride (98 - 107 mmol/L) 91 L Carbon Dioxide (22 - 30 mmol/L) 35 H Anion Gap (5 - 16) 11 BUN (7 - 17 mg/dL) 24 H Creatinine (0.5 - 1.0 mg/dL) 1.1 H Estimated GFR (>60 ml/min) 47 L BUN/Creatinine Ratio (7 - 25 %) 21.8 Glucose (65 - 99 mg/dL) 101 H Calcium (8.4 - 10.2 mg/dL) 9.4 Total Bilirubin (0.2 - 1.3 mg/dL) 0.4 AST (14 - 36 U/L) 23 ALT (9 - 52 U/L) 44 Alkaline Phosphatase (<127 U/L) 118 Tbq-B-[id number] Pept (<125 pg/mL) 1720 H Total Protein (6.3 - 8.2 g/dL) 6.5 Albumin (3.5 - 5.0 g/dL) 3.4 L Globulin (1.9 - 4.2 gm/dL) 3.1 Albumin/Globulin Ratio (1.1 - 2.2 %) 1.1 Hematology CBC w Diff NO MAN DIFF REQ WBC (4.8 - 10.8 /CUMM) 8.9 RBC (4.20 - 5.40 /CUMM) 4.22 Hgb (12.0 - 16.0 G/DL) 12.8 Hct (37 - 47 %) 39.1 MCV (81.0 - 99.0 FL) 92.7 MCH (27.0 - 31.0 PG) 30.3 RDW (11.5 - 14.5 %) 13.7 Plt Count (130 - 400 /CUMM) 233 MPV (7.4 - 10.4 FL) 8.0 Gran % (42.2 - 75.2 %) 75.5 H Lymphocytes % (20.5 - 51.1 %) 12.1 L Monocytes % (1.7 - 9.3 %) 9.2 Eosinophils % (0 - 5 %) 3.0 Basophils % (0.0 - 2.0 %) 0.2 Absolute Granulocytes (1.4 - 6.5 /CUMM) 6.7 H Absolute Lymphocytes (1.2 - 3.4 /CUMM) 1.1 L Absolute Monocytes (0.10 - 0.60 /CUMM) 0.8 H Absolute Eosinophils (0.0 - 0.7 /CUMM) 0.3 Absolute Basophils (0.0 - 0.2 /CUMM) 0 PUBS MCHC (33.0 - 37.0 G/DL) 32.7 L Toxicology Theophylline (10.0 - 20.0 uG/mL) 4.5 L A/P; 86 y/o F with pmh sig for ch resp failure, 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 We'll continue the tramadol as well as Percocet. Patient at baseline oxygen. Continue current steroids, TRC nebs and inhalers. Continue all other current medications. DVT px: Heparin subcutaneous patient should be seen by physical therapy.
[2016-06-23 08:00] LABS: ABSOLUTE BASOPHIL COUNT 0 /CUMM (0.0-0.2); ABSOLUTE EOSINOPHIL COUNT 0 /CUMM (0.0-0.7); ABSOLUTE LYMPH COUNT 0.5 /CUMM (1.2-3.4); ABSOLUTE MONOCYTE COUNT 0.1 /CUMM (0.10-0.60); EOSINOPHIL % 0.1 % (0-5); HEMATOCRIT 36.7 % (37-47)
[2016-06-23 08:17] LABS: ABSOLUTE GRANULOCYTE CT 3.6 /CUMM (1.4-6.5); BASOPHIL % 0.3 % (0.0-2.0); MEAN CORPUSCULAR HGB 30.6 PG (27.0-31.0); MEAN CORPUSCULAR HGB CONC 33.1 G/DL (33.0-37.0); MEAN CORPUSCULAR VOLUME 92.6 FL (81.0-99.0); MEAN PLATELET VOLUME 9.1 FL (7.4-10.4); PLATELET COUNT 214 /CUMM (130-400); RBC DISTRIBUTION WIDTH 13.6 % (11.5-14.5); RED BLOOD CELL CT 3.97 /CUMM (4.20-5.40)
[2016-06-23 08:33] LABS: WHITE BLOOD CELL COUNT 4.2 /CUMM (4.8-10.8)
--- NOTE | 2016-06-23 11:38 | ULTRASOUND REPORT ---
EXAMINATION: LEFT LOWER EXTREMITY DOPPLER VENOUS ULTRASOUND CLINICAL INFORMATION: Left lower extremity erythema. Rule out DVT. COMPARISON: None. TECHNIQUE: Doppler spectral analysis and color flow Doppler imaging was performed of the left lower extremity. Compression and augmentation maneuvers were performed. Comparison of the contralateral right common femoral vein was also performed. FINDINGS: The common femoral, profunda femoral, superficial femoral, greater saphenous, popliteal, and proximal calf veins were well-identified and normal. The veins demonstrate normal compressibility and color fill-in. IMPRESSION: No evidence for left lower extremity deep vein thrombosis.
[2016-06-23 14:36] VITALS: BP 140/60
--- NOTE | 2016-06-23 18:43 | Cons- Pulmonary ---
General Information and HPI Consulting Request Date of Consult: 06/23/16 Requested By: med team History of Present Illness: Patient is a 86-year-old female with significant past medical history of 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 Patient claims that she is having gradually progressive back pain since last 5-7 days, which is located in lower back, 10/10, nonradiating, relieved by taking rest and having no movement in the body, aggravated by any kind of movements. She denies trauma, fall, incontinence of stool in the urine, tingling and numbness in the lower legs, pain in the lower abdomen, dysuria, fever, chills. She has terminal copd and is on 5 litres of oxygen SHe has sig corpulmonale with mild lower ext edema Review of Systems Constitutional: Reports: weakness. Denies: chills, diaphoresis, fever. EENTM: Denies: no symptoms. Cardiovascular: Reports: orthopena, palpitations. Denies: chest pain, edema, peripheral edema, syncope. Respiratory: Reports: orthopnea, short of breath. Denies: cough, hemoptysis, sputum production, wheezing. GI: Denies: abdominal pain, bloating, constipation, diarrhea, distention, bowel incontinence, melena, nausea, bloody stool. Genitourinary: Denies: discharge, dysuria, frequency, hematuria, hesitation. Musculoskeletal: Reports: back pain, joint pain, joint swelling. Skin: Reports: erythema. Neurological/Psychological: Reports: anxiety, dementia. Allergies/Medications Allergies: Coded Allergies: Penicillins (Severe, HIVES, RASH 06/22/16) Uncoded Allergies: POLLENS (UNKNOWN 04/08/14) Home Med List: Albuterol Sulfate (Proventil Hfa) 90 MCG HFA.AER.AD 2 PUF INH Q4 PRN SOB ( Reported) Alprazolam 0.25 MG TABLET 2 TAB PO 2300 SLEEP (Reported) Brimonidine Tartrate (Alphagan P) (Unknown Strength) DROPS 1 DROP OPH BID GLAUCOMA - BOTH EYES (Reported) Cholecalciferol (Vitamin D3) 1,000 UNIT TABLET 2 TAB PO QAM SUPPLEMENT ( Reported) Dorzolamide HCl 2 % DROPS 1 GTT OPH BID GLAUCOMA - BOTH EYES (Reported) Furosemide 20 MG TABLET 1 TAB PO QAM EDEMA (Reported) Hydrochlorothiazide 12.5 MG CAPSULE 1 CAP PO QAM BP (Reported) Latanoprost (Xalatan) 2.5 ML DROPS 1 GTT OPH 1900 GLAUCOMA (Reported) BOTH EYES Mometasone Furoate (Nasonex) 50 MCG SPRAY.PUMP 1 SPRAY NASB DAILY NEEDED NASAL CONGESTION (Reported) Mometasone/Formoterol (Dulera 200 Mcg/5 Mcg Inhaler) 13 GM HFA.AER.AD 2 PUF INH Q12H COPD (Reported) Omeprazole 40 MG CAPSULE.DR 1 CAP PO DAILY AC HEARTBURN (Reported) Potassium Chloride 20 MEQ TAB.ER.PRT 1 TAB PO DAILY SUPPLEMENT (Reported) Prednisone 5 MG TABLET 1 TAB PO QAM COPD (Reported) take 10mg on 10/30/15 then take 5mg daily x 10days then stop! please see your manufacturing inspector prior to stopping. Theophylline Anhydrous (Theophylline) 400 MG TABLET.ER 0.5 TAB PO QAM COPD ( Reported) Tiotropium [place] (Spiriva Respimat) 2.5 MCG/ACTUATION MIST.INHAL 2 PUFF INH QAM COPD (Reported) Tramadol HCl (Ultram) 50 MG TABLET 1 TAB PO BIDP PRN PAIN (Reported) Review of Systems Review of Systems Constitutional: Reports: see HPI. 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 yes Exam & Diagnostic Data Last 24 Hrs of Vital Signs/I&O Vital Signs Date Time Temp Pulse Resp B/P Pulse O2 O2 Flow FiO2 Ox Delivery Rate 06/23 1458 Nasal 5.0L Cannula 06/23 1436 97.4 79 20 140/60 99 Nasal 7.0L Cannula 06/23 0800 94 Nasal 5.0L Cannula 06/23 0532 97.9 74 20 140/68 96 Nasal 5.0L Cannula 06/23 0203 97.9 86 24 110/80 97 Nasal 5.0L Cannula 06/23 0200 96 Nasal 5.0L Cannula 06/22 2232 98.3 96 24 169/79 97 Nasal 5.0L Cannula 06/22 2100 98.3 76 20 172/74 99 Nasal Cannula 06/22 1912 98.0 101 22 135/96 95 Nasal 5.0L Cannula Intake & Output 06/23 1600 06/23 0800 06/23 0000 Intake Total 720 250 120 Output Total 450 Balance 270 250 120 Intake, IV 10 Intake, Oral 720 240 120 Output, Urine 450 Patient 122 lb 122 lb Weight Last 48 Hrs of Labs/Jb: Laboratory Tests 06/23/16 0640: Anion Gap 9, Estimated GFR 47 L, BUN/Creatinine Ratio 26.4 H, CBC w Diff NO MAN DIFF REQ, RBC 3.97 L, MCV 92.6, MCH 30.6, RDW 13.6, MPV 9.1, Gran % 85.0 H , Lymphocytes % 12.1 L, Monocytes % 2.5, Eosinophils % 0.1, Basophils % 0.3, Absolute Granulocytes 3.6, Absolute Lymphocytes 0.5 L, Absolute Monocytes 0.1 L, Absolute Eosinophils 0, Absolute Basophils 0, PUBS MCHC 33.1 06/22/160: Urine Color YEL, Urine Clarity CLEAR, Urine pH 6.0, Ur Specific [place] 1.020, Urine Protein NEG, Urine Ketones TRACE H, Urine Nitrite NEG, Urine Bilirubin NEG, Urine Urobilinogen 0.2, Ur Leukocyte Esterase NEG, Ur Microscopic EXAM NOT REQUIRED, Urine Hemoglobin NEG, Urine Glucose NEG 06/22/161999: Anion Gap 11, Estimated GFR 47 L, BUN/Creatinine Ratio 21.8, Glucose 101 H, Calcium 9.4, Total Bilirubin 0.4, AST 23, ALT 44, Alkaline Phosphatase 118, Pro- B-Natriuretic Pept 1720 H, Total Protein 6.5, Albumin 3.4 L, Globulin 3.1, Albumin/Globulin Ratio 1.1, CBC w Diff NO MAN DIFF REQ, RBC 4.22, MCV 92.7, MCH 30.3, RDW 13.7, MPV 8.0, Gran % 75.5 H, Lymphocytes % 12.1 L, Monocytes % 9.2, Eosinophils % 3.0, Basophils % 0.2, Absolute Granulocytes 6.7 H, Absolute Lymphocytes 1.1 L, Absolute Monocytes 0.8 H, Absolute Eosinophils 0.3, Absolute Basophils 0, PUBS MCHC 32.7 L, Theophylline 4.5 L SIGNIFICANT DATA Lower extremity ultrasound within normal limits Lumbosacral CT showed very severe spinal stenosis CTA done of the chest few months ago showed 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 Chest x-ray showed non-streaky bibasilar opacities Blood work reviewed Baseline bicarbonate is elevated creatinine is 1.1 potassium is 4.4 Hemoglobin was 12.1 WBC 4.2. Assessment/Plan Impression/Plan: Physical Exam General Appearance Alert, Oriented X3, Cooperative, No Acute Distress Skin erythema HEENT Atraumatic, PERRLA, EOMI Neck Supple, No JVD Cardiovascular Normal S1, Normal S2, murmur Lungs decrease air entry, she is not able to complete the sentence, prolonged expiration with mild wheezing Abdomen Soft, No Tenderness Neurological Normal Speech Extremities No Clubbing, No Cyanosis, increased edema in the left lower limb than the right Vascular Normal Pulses, Pulses Symmetrical IMPRESSION This is an elderly lady with very severe COPD with preterminal emphysema was on 5-6 L of oxygen at rest, who has significant shortness of breath at rest, poor performance status now here with * Severe low back pain due to severe spinal stenosis * Very severe emphysema with very poor pulmonary reserve with shortness of breath on rest, no obvious clinical exacerbation of COPD but patient has been on long-term steroids hence immunosuppressed * Chronic hypoxemic and hypercarbic respiratory failure * Chronic cor pulmonale with lower extremity edema. 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 Avoid narcotics. If her pain becomes very severe we' ll start her on prednisone 20 mg daily for 5 days then 10 mg daily for 5 days then 5 mg reduce the swelling around the nerves in the lumbosacral area as she has severe spinal stenosis * COnt all out pt meds * Continue her outpatient inhaler therapy. nebulizer treatment with albuterol only if she wants it. Continue all her other respiratory medications including theophylline. Continue oxygen and keep her saturation at 90%. * Cont prednisone at 5 mg * Continue po antibiotics , total abx for seven days for her cholangitis she had * Continue her other outpatient medications MERCED Continue low-dose theophylline Aggressive bowel regimen Continue albuterol inhalers as noted Subcutaneous heparin Alprazolam, very low dose as needed Patient appears euvolemic and if appropriate were to go up we will put her on low-dose Lasix as needed Prognosis is guarded patient is DNR/DNI Consult Acknowledgment - Thank you for your consult request.
[2016-06-23 22:10] VITALS: BP 110/60
--- NOTE | 2016-06-24 05:48 | PN- Housestaff ---
CLIFFORD BRIONES 06/24/16 0547: Subjective Follow-up For: - COPD Subjective: She was comfortable this morning. After being moved from the bed to the chair, she started complaining of pain in her lower back 7-8/10. Worse on moving. Vitals remained stable overnight. She was afebrile. Reached out to Ryan Seals MD, for advise on continuing furosemide and hydro- chlorothiazide. Review of Systems Constitutional: Reports: see HPI. Objective Last 24 Hrs of Vital Signs/I&O Vital Signs Date Time Temp Pulse Resp B/P Pulse O2 O2 Flow FiO2 Ox Delivery Rate 06/24 0000 98 Nasal 5.0L Cannula 06/23 2210 97.7 76 20 110/60 98 Nasal Cannula 06/23 1458 Nasal 5.0L Cannula 06/23 1436 97.4 79 20 140/60 99 Nasal 7.0L Cannula 06/23 0800 94 Nasal 5.0L Cannula Intake & Output 06/24 0800 06/24 0000 06/23 1600 Intake Total 200 720 Output Total 150 450 Balance 50 270 Intake, Oral 200 720 Number 2 Bowel Movements Output, Urine 150 450 Physical Exam General Appearance: No Acute Distress Other Physical Findings: General Exam: AAOx3, No acute distress, Skin: No rashes, no breakdown HEENT: PERRLA, EOMI Neck: Supple, No JVD No cervical lymphadenopathy CVS: Reg Rate, Normal S1,S2, No MGR Resp: Decreased air entry, ronchi/rales b/l Abdomen: Soft, No tenderness, Normal Bowel Sounds Neuro: Normal Speech, Strength 5/5 b/l x 4 extremities, Sensation intact, CN III -XII NL, Reflexes 2+ Extremities: No cyanosis, pedal edema Current Medications: Current Medications Sig/Juan Carlos Start time Last Medication Dose Route Stop Time Status Admin Acetaminophen 650 MG Q6P PRN 06/22 2330 AC PO Albuterol Sulfate 2 PUF Q4P PRN 06/23 0130 AC 06/23 INH 0751 Alprazolam 0.5 MG 2300 06/23 2300 AC 06/23 PO 06/30 2259 2211 Brimonidine Tartrate 1 GTT BID 06/23 2200 AC 06/23 OPH 2058 Budesonide/ 2 PUF BID 06/23 1000 DC Formoterol Fumarate INH Budesonide/ 2 PUF BID 06/23 0245 AC 06/23 Formoterol Fumarate INH 2057 Dorzolamide HCl 1 GTT BID 06/23 1346 AC 06/23 OPH 2058 Heparin Sodium 5,000 UNIT Q8 06/22 2326 AC 06/23 (Porcine) SC 8 Latanoprost 1 GTT AT BEDTIME 06/23 2200 AC 06/23 OPH 2211 Lidocaine 1 PAT DAILY 06/23 1000 AC 06/23 EXT 0913 Omeprazole 40 MG DAILY AC 06/23 0700 AC 06/23 PO 0720 Oxycodone HCl 10 MG Q4P PRN 06/23 0230 DC PO Oxycodone/ 1 TAB Q4P PRN 06/23 0145 AC 06/24 Acetaminophen PO 0508 Patient Medication 1 ED .STK-MED ONE 06/23 1408 DC Teaching ED 06/23 1409 Polyethylene Glycol 17 GM DAILY 06/23 1345 AC 06/23 PO 1436 Prednisone 5 MG DAILY 06/23 1000 AC 06/23 PO 0913 Senna/Docusate Sodium 1 TAB BID PRN 06/23 1345 AC PO Sodium Chloride 2 SPRAY Q4P PRN 06/23 1445 AC 06/23 KORIN 1816 Theophylline 200 MG DAILY 06/23 1000 AC 06/23 PO 0913 Tiotropium [place] 1 PUF DAILY 06/23 1000 AC 06/23 INH 0751 Tramadol HCl 50 MG BID 06/23 1000 AC 06/23 PO 2059 Last 24 Hrs of Lab/Jb Results Last 24 Hrs of Labs/Mics: Laboratory Tests 06/23/16 0640: Anion Gap 9, Estimated GFR 47 L, BUN/Creatinine Ratio 26.4 H, CBC w Diff NO MAN DIFF REQ, RBC 3.97 L, MCV 92.6, MCH 30.6, RDW 13.6, MPV 9.1, Gran % 85.0 H , Lymphocytes % 12.1 L, Monocytes % 2.5, Eosinophils % 0.1, Basophils % 0.3, Absolute Granulocytes 3.6, Absolute Lymphocytes 0.5 L, Absolute Monocytes 0.1 L, Absolute Eosinophils 0, Absolute Basophils 0, PUBS MCHC 33.1 Assessment/Plan Assessment: An older lady with a 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 No neurological signs. Remained afebrile overnight. Vitals are stable. Differential diagnoses: #1 lumbar pedicle operative/back pain #2 COPD Below is the problem list and plan: #1 back pain-no neurological deficits. Likely because of canal stenosis and degenerative changes. No fractures were found. Since the patient was on prednisone for a long time, further studies such as DEXA scan could be done as an outpatient. Pain management with tramadol 50 mg by mouth twice a day prn, Lidoderm patch, Percocet 1 tablet every 4 when necessary and Flexeril. Physical therapy assessment-home physical therapy as part of discharge planning. Neurosurgical evaluation as an outpatient. Bowel regimen added. #2 COPD-no change compared to baseline. Continue tiotropium 1 puff daily inhalation, theophylline 200 mg by mouth daily, (low theophylline levels ), continue home dose of prednisone 5 mg by mouth daily, Symbicort 2 puffs twice a day. May change to prednisone taper, at the time of discharge. #3 hypertension-currently losartan, hydrochlorothiazide on hold. Blood pressure stable. Start Lasix po as an outpatient. #4 abnormal renal function-serum creatinine slightly elevated to 1.0. Continue to monitor. Avoid NSAIDs. #5 left lower extremity swelling-negative for DVT. Encourage ambulation. #6 glaucoma-continue her home medications of brimonidine, latanoprost, dorzolamide. #6 DVT prophylaxis-heparin subcutaneous. Problem List: 1. Emphysema lung 2. Back pain Pain Ratin Pain Location: back Pain Goal: Pain 4 or less Pain Plan: Tramadol Percocet Tomorrow's Labs & Rationales: Basic electrolyte panel-to check serum creatinine. To start Lasix SHAGUFTA LONG,ALEX 06/24/16 1129: Attending MD Review Statement Attending Statement Attending MD Statement: examined this patient, discuss w/resident/PA/RETAIL MANAGEMENT KEYHOLDER, agreed w/resident/PA/RETAIL MANAGEMENT KEYHOLDER, reviewed EMR data (avail), discussed with nursing, discussed with case mgmt, reviewed images, amended to note Attending Assessment/Plan: Patient seen and examined, feeling slightly better but not back to baseline yet. Still having difficulty breathing. That pain is still not under optimal control. Vital Signs Date Time Temp Pulse Resp B/P Pulse O2 O2 Flow FiO2 Ox Delivery Rate 06/24 0628 97.9 75 24 122/76 97 Nasal Cannula 06/24 0000 98 Nasal 5.0L Cannula 06/230 97.7 76 20 110/60 98 Nasal Cannula 06/23 1458 Nasal 5.0L Cannula 06/23 1436 97.4 79 20 140/60 99 Nasal 7.0L Cannula on exam; aox3, nad. cv; s1,s2, rrr. resp; mostly clear with decrease bs. abd; soft, nt, bs+ ext; no edema. Laboratory Tests 06/24 0650 Chemistry Sodium (137 - 145 mmol/L) 138 Potassium (3.5 - 5.1 mmol/L) 4.4 Chloride (98 - 107 mmol/L) 95 L Carbon Dioxide (22 - 30 mmol/L) 37 H Anion Gap (5 - 16) 6 BUN (7 - 17 mg/dL) 29 H Creatinine (0.5 - 1.0 mg/dL) 1.0 Estimated GFR (>60 ml/min) 53 L BUN/Creatinine Ratio (7 - 25 %) 29.0 H Hematology CBC w Diff NO MAN DIFF REQ WBC (4.8 - 10.8 /CUMM) 7.2 RBC (4.20 - 5.40 /CUMM) 3.91 L Hgb (12.0 - 16.0 G/DL) 12.0 Hct (37 - 47 %) 36.2 L MCV (81.0 - 99.0 FL) 92.5 MCH (27.0 - 31.0 PG) 30.7 RDW (11.5 - 14.5 %) 13.8 Plt Count (130 - 400 /CUMM) 215 MPV (7.4 - 10.4 FL) 8.7 Gran % (42.2 - 75.2 %) 68.4 Lymphocytes % (20.5 - 51.1 %) 18.4 L Monocytes % (1.7 - 9.3 %) 8.8 Eosinophils % (0 - 5 %) 3.9 Basophils % (0.0 - 2.0 %) 0.5 Absolute Granulocytes (1.4 - 6.5 /CUMM) 4.9 Absolute Lymphocytes (1.2 - 3.4 /CUMM) 1.3 Absolute Monocytes (0.10 - 0.60 /CUMM) 0.6 Absolute Eosinophils (0.0 - 0.7 /CUMM) 0.3 Absolute Basophils (0.0 - 0.2 /CUMM) 0 PUBS MCHC (33.0 - 37.0 G/DL) 33.2 A/P; 86 y/o F with pmh sig for ch resp failure, 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 Pain is still not under optimal control, will add a muscle relaxant at a low dose. Still feels short of breath when exerts herself. As recommended by Dr. Seals, will add some steroids. Continue TRC nebs and inhalers. Contine other current meds. DVT Px: hep sq. POssible discharge in am.
[2016-06-24 06:28] VITALS: BP 122/76
[2016-06-24 08:07] LABS: ABSOLUTE BASOPHIL COUNT 0 /CUMM (0.0-0.2); ABSOLUTE EOSINOPHIL COUNT 0.3 /CUMM (0.0-0.7); ABSOLUTE GRANULOCYTE CT 4.9 /CUMM (1.4-6.5); ABSOLUTE LYMPH COUNT 1.3 /CUMM (1.2-3.4); ABSOLUTE MONOCYTE COUNT 0.6 /CUMM (0.10-0.60); BASOPHIL % 0.5 % (0.0-2.0); EOSINOPHIL % 3.9 % (0-5); GRANULOCYTE % 68.4 % (42.2-75.2); HEMATOCRIT 36.2 % (37-47); MEAN CORPUSCULAR HGB 30.7 PG (27.0-31.0); MEAN CORPUSCULAR HGB CONC 33.2 G/DL (33.0-37.0); MEAN CORPUSCULAR VOLUME 92.5 FL (81.0-99.0); MEAN PLATELET VOLUME 8.7 FL (7.4-10.4); PLATELET COUNT 215 /CUMM (130-400); RBC DISTRIBUTION WIDTH 13.8 % (11.5-14.5); RED BLOOD CELL CT 3.91 /CUMM (4.20-5.40)
[2016-06-24 08:21] LABS: WHITE BLOOD CELL COUNT 7.2 /CUMM (4.8-10.8)
--- NOTE | 2016-06-24 08:31 | Patient Discharge Instructions ---
Discharge Instructions General Discharge Information You were seen/treated for: #1 back pain #2 COPD Watch for these problems: #1 severe pain in the back, with radiation #2 weakness, tingling numbness in lower extremities Special Instructions: #1 please follow up with her primary care provider within 1-2 weeks of discharge. #2 please follow up with your psychologist engineering within 1-2 weeks of discharge. Acute Coronary Syndrome Inclusion Criteria At DC or during hospital stay patient has or had the following: ACS DIAGNOSIS No Discharge Core Measures Meds if any: Prescribed or Continued at Discharge Meds if any: NOT Prescribed or Continued at Discharge Congestive Heart Failure Inclusion Criteria At DC or during hospital stay patient has or had the following: CHF DIAGNOSIS No Discharge Core Measures Meds if any: Prescribed or Continued at Discharge Meds if any: NOT Prescribed or Continued at Discharge Cerebrovascular accident Inclusion Criteria At DC or during hospital stay patient has or had the following: CVA/TIA Diagnosis No Discharge Core Measures Meds if any: Prescribed or Continued at Discharge Meds if any: NOT Prescribed or Continued at Discharge Venous thromboembolism Inclusion Criteria VTE Diagnosis No VTE Type NONE VTE Confirmed by (Test) NONE Discharge Core Measures - Per Current guidelines, there needs to be overlap - treatment for the first 5 days of Warfarin therapy. - If discharged on Warfarin prior to 5 days of - overlap therapy, the patient will need to be - assessed for post discharge needs including - *Post discharge parental anticoagulation - *Warfarin and/or parental anticoagulation education - *Follow up date to check INR post discharge At least 5 days overlap therapy as Inpatient No Meds if any: Prescribed or Continued at Discharge Note: Overlap Therapy is Warfarin and Anticoagulant Meds if any: NOT Prescribed or Continued at Discharge
[2016-06-24] MEDS ORDERED: PERCOCET 5-3251 EACH PO (08:33)
--- NOTE | 2016-06-24 11:28 | NUR ---
PHYSICAL THERAPY: Attempted to see patient x 2 attempts this morning; patient refused 2* on the phone with family & asked PT to check in later. Upon return, patient was recieving imaging test in room. PT to follow up as appropraite.
--- NOTE | 2016-06-24 13:16 | NUR ---
PHYSICAL THERAPY: 3rd attempt to see patient this afternoon; patient recieved in bed stating she is "very tired and in a lot of pain, I just got back to bed. I do not want to get up." Patient educated on the benefits of mobility and exercise. Respectfully continues to refuse P.T. treatment. RN made aware, recently medicated patient & agreeable to ambulate w/ patient later this P.M. P.T. will f/u as appropriate.
[2016-06-24 13:50] VITALS: BP 120/80
--- NOTE | 2016-06-24 14:24 | PN- Pulmonary ---
Subjective HPI/Critical Care Issues: She feels improved compared to yesterday. Oxygen saturations remained in the range of 94-96% on 5 L. Remained afebrile overnight. States that she feels improved compared to yesterday. After receiving pain medications, she feels improved. Review of Systems Constitutional: Reports: see HPI. Objective Current Medications: Current Medications Sig/Juan Carlos Start time Last Medication Dose Route Stop Time Status Admin Acetaminophen 650 MG Q6P PRN 06/22 2330 AC PO Albuterol Sulfate 2 PUF Q4P PRN 06/23 0130 AC 06/24 INH 1025 Alprazolam 0.5 MG 2300 06/23 2300 AC 06/23 PO 06/30 2259 2211 Brimonidine Tartrate 1 GTT BID 06/23 2200 AC 06/24 OPH 0756 Budesonide/ 2 PUF BID 06/23 0245 AC 06/24 Formoterol Fumarate INH 0626 Cyclobenzaprine HCl 2.5 MG TID PRN 06/24 0934 AC 06/24 PO 1405 Cyclobenzaprine HCl 5 MG TID 06/24 0930 DC PO Dorzolamide HCl 1 GTT BID 06/23 1346 AC 06/24 OPH 0632 Heparin Sodium 5,000 UNIT Q8 06/22 2326 AC 06/24 (Porcine) SC 1310 Latanoprost 1 GTT AT BEDTIME 06/23 2200 AC 06/23 OPH 2211 Lidocaine 1 PAT DAILY 06/23 1000 AC 06/24 EXT 0913 Omeprazole 40 MG DAILY AC 06/23 0700 AC 06/24 PO 0626 Oxycodone/ 1 TAB Q4P PRN 06/23 0145 AC 06/24 Acetaminophen PO 1310 Polyethylene Glycol 17 GM DAILY 06/23 1345 AC 06/24 PO 0912 Prednisone 5 MG DAILY 06/23 1000 AC 06/24 PO 0912 Senna/Docusate Sodium 1 TAB BID PRN 06/23 1345 AC PO Sodium Chloride 2 SPRAY Q4P PRN 06/23 1445 AC 06/24 KORIN 1025 Theophylline 200 MG DAILY 06/23 1000 AC 06/24 PO 0805 Tiotropium [place] 1 PUF DAILY 06/23 1000 AC 06/24 INH 0756 Tramadol HCl 50 MG BID PRN 06/24 0932 AC PO Tramadol HCl 50 MG BID 06/23 1000 DC 06/23 PO 2059 Laboratory Tests 06/24 06/23 0635 6359 Chemistry Sodium (137 - 145 mmol/L) 138 137 Potassium (3.5 - 5.1 mmol/L) 4.4 4.4 Chloride (98 - 107 mmol/L) 95 L 92 L Carbon Dioxide (22 - 30 mmol/L) 37 H 36 H Anion Gap (5 - 16) 6 9 BUN (7 - 17 mg/dL) 29 H 29 H Creatinine (0.5 - 1.0 mg/dL) 1.0 1.1 H Estimated GFR (>60 ml/min) 53 L 47 L BUN/Creatinine Ratio (7 - 25 %) 29.0 H 26.4 H Hematology CBC w Diff NO MAN DIFF REQ NO MAN DIFF REQ WBC (4.8 - 10.8 /CUMM) 7.2 4.2 L RBC (4.20 - 5.40 /CUMM) 3.91 L 3.97 L Hgb (12.0 - 16.0 G/DL) 12.0 12.1 Hct (37 - 47 %) 36.2 L 36.7 L MCV (81.0 - 99.0 FL) 92.5 92.6 MCH (27.0 - 31.0 PG) 30.7 30.6 RDW (11.5 - 14.5 %) 13.8 13.6 Plt Count (130 - 400 /CUMM) 215 214 MPV (7.4 - 10.4 FL) 8.7 9.1 Gran % (42.2 - 75.2 %) 68.4 85.0 H Lymphocytes % (20.5 - 51.1 %) 18.4 L 12.1 L Monocytes % (1.7 - 9.3 %) 8.8 2.5 Eosinophils % (0 - 5 %) 3.9 0.1 Basophils % (0.0 - 2.0 %) 0.5 0.3 Absolute Granulocytes (1.4 - 6.5 /CUMM) 4.9 3.6 Absolute Lymphocytes (1.2 - 3.4 /CUMM) 1.3 0.5 L Absolute Monocytes (0.10 - 0.60 /CUMM) 0.6 0.1 L Absolute Eosinophils (0.0 - 0.7 /CUMM) 0.3 0 Absolute Basophils (0.0 - 0.2 /CUMM) 0 0 PUBS MCHC (33.0 - 37.0 G/DL) 33.2 33.1 06/220 1999 Chemistry Sodium (137 - 145 mmol/L) 137 Potassium (3.5 - 5.1 mmol/L) 3.8 Chloride (98 - 107 mmol/L) 91 L Carbon Dioxide (22 - 30 mmol/L) 35 H Anion Gap (5 - 16) 11 BUN (7 - 17 mg/dL) 24 H Creatinine (0.5 - 1.0 mg/dL) 1.1 H Estimated GFR (>60 ml/min) 47 L BUN/Creatinine Ratio (7 - 25 %) 21.8 Glucose (65 - 99 mg/dL) 101 H Calcium (8.4 - 10.2 mg/dL) 9.4 Total Bilirubin (0.2 - 1.3 mg/dL) 0.4 AST (14 - 36 U/L) 23 ALT (9 - 52 U/L) 44 Alkaline Phosphatase (<127 U/L) 118 Qyn-R-Xbglviejhyi Pept (<125 pg/mL) 1720 H Total Protein (6.3 - 8.2 g/dL) 6.5 Albumin (3.5 - 5.0 g/dL) 3.4 L Globulin (1.9 - 4.2 gm/dL) 3.1 Albumin/Globulin Ratio (1.1 - 2.2 %) 1.1 Hematology CBC w Diff NO MAN DIFF REQ WBC (4.8 - 10.8 /CUMM) 8.9 RBC (4.20 - 5.40 /CUMM) 4.22 Hgb (12.0 - 16.0 G/DL) 12.8 Hct (37 - 47 %) 39.1 MCV (81.0 - 99.0 FL) 92.7 MCH (27.0 - 31.0 PG) 30.3 RDW (11.5 - 14.5 %) 13.7 Plt Count (130 - 400 /CUMM) 233 MPV (7.4 - 10.4 FL) 8.0 Gran % (42.2 - 75.2 %) 75.5 H Lymphocytes % (20.5 - 51.1 %) 12.1 L Monocytes % (1.7 - 9.3 %) 9.2 Eosinophils % (0 - 5 %) 3.0 Basophils % (0.0 - 2.0 %) 0.2 Absolute Granulocytes (1.4 - 6.5 /CUMM) 6.7 H Absolute Lymphocytes (1.2 - 3.4 /CUMM) 1.1 L Absolute Monocytes (0.10 - 0.60 /CUMM) 0.8 H Absolute Eosinophils (0.0 - 0.7 /CUMM) 0.3 Absolute Basophils (0.0 - 0.2 /CUMM) 0 PUBS MCHC (33.0 - 37.0 G/DL) 32.7 L Toxicology Theophylline (10.0 - 20.0 uG/mL) 4.5 L Urines Urine Color (YEL,AMB,STR) YEL Urine Clarity (CLEAR) CLEAR Urine pH (5.0 - 8.0) 6.0 Ur Specific [place] (1.001 - 1.035) 1.020 Urine Protein (NEG,<30 MG/DL) NEG Urine Ketones (NEG) TRACE H Urine Nitrite (NEG) NEG Urine Bilirubin (NEG) NEG Urine Urobilinogen (0.1 - 1.0 EU/dl) 0.2 Ur Leukocyte Esterase (NEG) NEG Ur Microscopic EXAM NOT REQUIRED Urine Hemoglobin (NEG) NEG Urine Glucose (N MG/DL) NEG Vital Signs & I&O Last 24 Hrs of Vitals and I&O: Vital Signs Date Time Temp Pulse Resp B/P Pulse O2 O2 Flow FiO2 Ox Delivery Rate 06/24 1350 96.8 72 26 120/80 95 06/24 0628 97.9 75 24 122/76 97 Nasal Cannula 06/24 0000 98 Nasal 5.0L Cannula 06/23 2210 97.7 76 20 110/60 98 Nasal Cannula 06/23 1458 Nasal 5.0L Cannula 06/23 1436 97.4 79 20 140/60 99 Nasal 7.0L Cannula Intake & Output 06/24 1600 06/24 0800 06/24 0000 Intake Total 300 300 200 Output Total 500 150 Balance 300 -200 50 Intake, Oral 300 300 200 Number 1 0 2 Bowel Movements Output, Urine 500 150 Impression/Plan Impression/Plan Impression/Plan: Physical Exam General Appearance Alert, Oriented X3, Cooperative, No Acute Distress Skin erythema HEENT Atraumatic, PERRLA, EOMI Neck Supple, No JVD Cardiovascular Normal S1, Normal S2, murmur Lungs decrease air entry, she is not able to complete the sentence, prolonged expiration with mild wheezing Abdomen Soft, No Tenderness Neurological Normal Speech Extremities No Clubbing, No Cyanosis, increased edema in the left lower limb than the right Vascular Normal Pulses, Pulses Symmetrical IMPRESSION This is an elderly lady with very severe COPD with preterminal emphysema was on 5-6 L of oxygen at rest, who has significant shortness of breath at rest, poor performance status now here with * Severe low back pain due to severe spinal stenosis * Very severe emphysema with very poor pulmonary reserve with shortness of breath on rest, no obvious clinical exacerbation of COPD but patient has been on long-term steroids hence immunosuppressed * Chronic hypoxemic and hypercarbic respiratory failure * Chronic cor pulmonale with lower extremity edema. 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 Avoid narcotics. If her pain becomes very severe we' ll start her on prednisone 20 mg daily for 5 days then 10 mg daily for 5 days then 5 mg reduce the swelling around the nerves in the lumbosacral area as she has severe spinal stenosis * COnt all out pt meds * Continue her outpatient inhaler therapy. nebulizer treatment with albuterol only if she wants it. Continue all her other respiratory medications including theophylline. Continue oxygen and keep her saturation at 90%. * Cont prednisone at 5 mg * Continue her other outpatient medications MERCED Continue low-dose theophylline Aggressive bowel regimen Continue albuterol inhalers as noted Subcutaneous heparin Alprazolam, very low dose as needed DO not start lisinopril and HCTZ, DIscussed with the pt and she was adviced to use lasix only as needed when Her wt increases and when she has sig pedal edema Patient appears euvolemic and if appropriate Prognosis is guarded patient is DNR/DNI
[2016-06-24] MEDS ORDERED: PREDNISONE5 M1 PO (15:36)
--- NOTE | 2016-06-24 18:56 | Discharge Summary ---
Visit Information Visit Dates Admission Date: 06/22/16 Discharge Date: 06/27/16 Hospital Course Course Attending Physician: ALEX EAGLE MD Primary Care Physician: DEVANTE MELARA MD Hospital Course: An older lady with a past medical history of severe emphysema (on 5 L oxygen) was evaluated for back pain 5 days prior to admission. No neurological signs. At the time of admission, vitals-temperature 97.8, pulse rate 89, respiration 24 , blood pressure 145/69, pulse ox 96% on nasal cannula (5 L). Laboratory findings indicated-WBC 8.9, hemoglobin 12.8, platelets 233, sodium 137, potassium 3.8, bicarbonate 35 (baseline 32), BUN 24, serum creatinine 1.1 (0.8 baseline). ProBNP slightly elevated 1720 (baseline 715), urinalysis-clear. Radiological signs-chest x-ray indicated nonspecific streaky bibasilar opacities. CAT scan lumbar spine without contrast-revealed mild to moderate central canal stenosis at L2-L3. Also mild anterior subluxation of L4-L5 with advanced facet arthropathy and degenerative disc disease resulting in severe central canal stenosis was found. Differential diagnoses: #1 lumbar pedicle operative/back pain #2 Emphysema Below is the problem list and plan: #1 back pain- Likely because of canal stenosis and degenerative changes. No fractures were found. Pt was managed on the gen med floor, and pain was initally controlled w/ acetaminophen(extra strenght), flexeril, oxycodone prn, and lidoderm patch. Since, she continued to have pain during the stay in the hospital, she was started on prednisone taper, as per Dr. Coleman recommendation. Neurosurgical evaluation as an outpatient. #2 Emphysema-no change compared to baseline. Continued on tiotropium inhalation , theophylline, (low theophylline levels in the serum), and Symbicort. #3 hypertension- BP was well controlled. Was not restarted on hydrochlorthaizide , and lasix. Pt to resume the use of lasix when the pt has documented weight gain in the future, if attributed to fluid overload. #4 abnormal renal function-serum creatinine slightly elevated to 1.1, which resolved during the stay in the hospital. #5 glaucoma-Pt was continued her home medications of brimonidine, latanoprost, dorzolamide. Allergies: Coded Allergies: Penicillins (Severe, HIVES, RASH 06/22/16) Uncoded Allergies: POLLENS (UNKNOWN 04/08/14) Pertinent Lab Results: CAT - CT LUMB SPINE WO IV CONTRAST 06/22/16-1718 No compression fractures. Moderate leftward curvature of the lumbar spine with significant degenerative endplate changes at L3-L4 lateralized to the right side. Moderate central canal stenosis at this level. Mild to moderate central canal stenosis at L2-L3 as a result of spondylosis. Mild anterior subluxation at L4-L5 with advanced facet arthropathy and degenerative disc disease resulting in severe central canal stenosis. RAD - XRY-PORTABLE CHEST XRAY Nonspecific streaky bibasilar opacification. This likely corresponds to atelectasis, though a developing infiltrate is difficult to exclude. Recommendation is for a followup chest series to be obtained following treatment and/or resolution of symptoms to assure resolution of this appearance. -- US - US-DUPLEX VENOUS EXTREM UNI 06/23/16- No evidence for left lower extremity deep vein thrombosis. ---- CARD - ECHOCARDIOGRAM 06/24/16- Left ventricular cavity size normal. Left ventricular wall thickness at upper limits of normal. No obvious regional wall motion abnormalities. Left ventricular ejection fraction is estimated at 55 %. Abnormal left ventricular diastolic filling pattern (stage 1). Mild right ventricular dilatation. Normal right ventricular global systolic function. Mild right atrial dilatation. Mild left atrial dilatation. Right ventricular systolic pressure estimated to be elevated at > 45 mmHg. -- Disposition Summary Disposition Principal Diagnosis: Chronic pain Additional Diagnosis: Emphysema Discharge Disposition: home or self care Discharge Instructions General Discharge Information Code Status: Do Not Resucitate/Intubat Patient's Diet: regular diet Patient's Activity: as tolerated Follow-Up Instructions/Appts: #1 please follow up with her primary care provider within 1-2 weeks of discharge. #2 please follow up with your nps and [facility] within 1-2 weeks of discharge. Medications at Discharge Discharge Medications: Stop taking the following medications: Mometasone/Formoterol (Dulera 200 Mcg/5 Mcg Inhaler) 13 GM HFA.AER.AD Inhale through mouth Q12H Prednisone (Prednisone) 5 MG TABLET ORAL Every Morning Hydrochlorothiazide (Hydrochlorothiazide) 12.5 MG CAPSULE ORAL Every Morning Qty = 30 Potassium Chloride (Potassium Chloride) 20 MEQ TAB.ER.PRT ORAL DAILY Qty = 30 Continue taking these medications: Omeprazole (Omeprazole) 40 MG CAPSULE.DR 1 Capsule ORAL DAILY BEFORE BREAKFAST Comments: Last Taken: 06/27/16 Time: 0630 Tramadol HCl (Ultram) 50 MG TABLET 1 Tablet ORAL TWICE DAILY Comments: Last Taken: 06/27/16 Time: 0630 Dorzolamide HCl (Dorzolamide HCl) 2 % DROPS 1 Drop In the eye TWICE DAILY Comments: Last Taken: 06/27/16 Time: 0830 Albuterol Sulfate (Proventil Hfa) 90 MCG HFA.AER.AD 2 Puff Inhale through mouth Every 4 hours as needed for SOB Brimonidine Tartrate (Alphagan P) (Unknown Strength) DROPS 1 DROP In the eye TWICE DAILY Comments: Last Taken: 06/27/16 Time: 0830 Latanoprost (Xalatan) 2.5 ML DROPS 1 Drop In the eye 1900 Instructions: BOTH EYES Comments: Last Taken: 06/27/16 Time: 2200 Theophylline Anhydrous (Theophylline) 400 MG TABLET.ER 0.5 Tablet ORAL Every Morning Comments: Last Taken: 06/27/16 Time: 0830 Furosemide (Furosemide) 20 MG TABLET 1 Tablet ORAL Every Morning Qty = 30 Instructions: please take Furosemide only when there is an increase in body weight. Comments: NOT TAKEN IN HOSPITAL Cholecalciferol (Vitamin D3) 1,000 UNIT TABLET 2 Tablet ORAL Every Morning Comments: NOT TAKEN IN HOSPITAL Mometasone Furoate (Nasonex) 50 MCG SPRAY.PUMP 1 [place] Both sides of nose DAILY NEEDED Comments: NOT TAKEN IN HOSPITAL Alprazolam (Alprazolam) 0.25 MG TABLET 2 Tablet ORAL 2300 Qty = 60 Comments: Last Taken: 06/27/16 Time: 2200 Tiotropium [place] (Spiriva Respimat) 2.5 MCG/ACTUATION MIST.INHAL 2 PUFF Inhale through mouth Every Morning Qty = 4 Comments: Last Taken: 06/27/16 Time: 0830 Start taking the following new medications: Budesonide/Formoterol Fumarate (Symbicort 160-4.5 Mcg Inhaler) 160 MCG-4.5 MCG/ ACTUATION HFA.AER.AD 2 Puff Inhale through mouth TWICE DAILY Qty = 1 No Refills Instructions: . Comments: Last Taken: 06/27/16 Time: 0830 Acetaminophen (Tylenol Extra Strength) 500 MG TABLET 2 Tablet ORAL THREE TIMES DAILY Qty = 30 No Refills Instructions: . Comments: Last Taken: 06/27/16 Time: 1000 Cyclobenzaprine HCl (Cyclobenzaprine HCl) 5 MG TABLET 1 Tablet ORAL THREE TIMES A DAY NEEDED Qty = 21 No Refills Instructions: . Comments: Last Taken: 06/27/16 Time: 0010 Prednisone (Prednisone) 5 MG TABLET 1 Tablet ORAL DAILY Qty = 30 Refills = 1 Instructions: Please take 20 mg(4 tabs) on 06/28,06/29, 10 mg (2 tab) on 06/30,07/01,07/02,07/03/07/04. take 5mg after 07/04. Copies To: KELTON LONG,DEVANTE E. Attending MD Review Statement Documenting Attending: SHAGUFTA LONG,ALEX
--- NOTE | 2016-06-24 20:44 | NUR ---
PT CALLED THIS NURSE INTO ROOM AT THIS TIME PT C/O SOB "BREATHLESS" LABORED BREATHING, DENIES CP, 92% ON 5L, ASKING TO TURN O2 UP TO 7L FOR A FEW MINUTES "UNTIL I CATCH MY BREATH", 95-96% ON 7L, CALL PLACED TO TEA AND SPICE SUPERVISOR TO COME EVAL. BP 180/90, HR 110, RR 30, TURNED BACK DOWN TO 5L AT THIS TIME 93%, REPOSITIONED IN BED FOR COMFORT, PT STATING SHE FEELS "BETTER" WILL CONTINUE TO MONITOR.
--- NOTE | 2016-06-24 21:02 | ECHOCARDIOGRAM REPORT ---
MARIA DEL CARMEN CAMILO Age: 86 : 1930 Gender: F Exam Date: 06/24/2016 11:19 Exam Location: [facility] Ht (in): 63 Wt (lb): 121 BSA: 1.56 BP: 140 / 68 Ordering Physician: EVARISTO MEJIA MD Referring Physician: EVARISTO MEJIA MD Technologist: Michael Castañeda [facility] Room Number: 229-1 Indications: Hypertension Rhythm: Sinus Technical Quality: Fair FINDINGS Left Ventricle Left ventricular cavity size normal. Left ventricular wall thickness at upper limits of normal. No obvious regional wall motion abnormalities. Left ventricular ejection fraction is estimated at 55 %. Abnormal left ventricular diastolic filling pattern (stage 1). Right Ventricle Mild right ventricular dilatation. Normal right ventricular global systolic function. Right Atrium Mild right atrial dilatation. Left Atrium Mild left atrial dilatation. Mitral Valve No mitral stenosis. Mild mitral annular calcification. Trace to mild mitral regurgitation. Aortic Valve No aortic stenosis. Aortic sclerosis. Tricuspid Valve Structurally normal tricuspid valve. Mild tricuspid regurgitation. Right ventricular systolic pressure estimated to be elevated at > 45 mmHg. Pulmonic Valve Pulmonic valve not well visualized, grossly normal. Pericardium No pericardial effusion. Great Vessels Normal size aortic root. CONCLUSIONS Left ventricular cavity size normal. Left ventricular wall thickness at upper limits of normal. No obvious regional wall motion abnormalities. Left ventricular ejection fraction is estimated at 55 %. Abnormal left ventricular diastolic filling pattern (stage 1). Mild right ventricular dilatation. Normal right ventricular global systolic function. Mild right atrial dilatation. Mild left atrial dilatation. Right ventricular systolic pressure estimated to be elevated at > 45 mmHg. Jose Carreon M.D. (Electronically Signed) Final Date: 24 June 2016 21:01 MEASUREMENTS (Male / Female) Normal Values 2D ECHO LV Diastolic Diameter PLAX 3.9 cm 4.2 - 5.9 / 3.9 - 5.3 cm LV Systolic Diameter PLAX 2.8 cm 2.1 - 4.0 cm LV Fractional Shortening PLAX 28.2 % 25 - 46 % LV Ejection Fraction 2D Teich 55.2 % IVS Diastolic Thickness 1.1 cm LVPW Diastolic Thickness 1.0 cm LV Relative Wall Thickness 0.5 RV Internal Dim ED PLAX 4.1 cm 1.9 - 3.8 cm LVOT Diameter 1.8 cm Aortic Root Diameter 2.9 cm LA Systolic Diameter LX 2.9 cm 3.0 - 4.0 / 2.7 - 3.8 cm Ascending Aorta Diameter 2.6 cm DOPPLER AV Peak Velocity 175.0 cm/s AV Peak Gradient 12.3 mmHg AV Mean Velocity 107.0 cm/s AV Mean Gradient 5.0 mmHg AV Velocity Time Integral 35.5 cm LVOT Peak Velocity 98.5 cm/s LVOT Peak Gradient 3.9 mmHg LVOT Mean Velocity 63.1 cm/s LVOT Mean Gradient 2.0 mmHg LVOT Velocity Time Integral 23.3 cm LVOT Stroke Volume 59.3 cm AV Area Cont Eq vti 1.7 cm AV Area Cont Eq pk 1.4 cm MV Peak Velocity 132.0 cm/s MV Peak Gradient 7.0 mmHg MV Mean Velocity 65.3 cm/s MV Mean Gradient 2.0 mmHg Mitral E Point Velocity 57.8 cm/s Mitral A Point Velocity 116.0 cm/s Mitral E to A Ratio 0.5 MV PHT Velocity 81.4 cm/s MV Deceleration [place] 357.0 cm/s MV Pressure Half Time 68.4 ms MV Area PHT 3.2 cm MV Deceleration Time 173.0 ms TR Peak Velocity 322.0 cm/s TR Peak Gradient 41.5 mmHg Right Atrial Pressure 5.0 mmHg Pulmonary Artery Systolic Pressu 46.5 mmHg Right Ventricular Systolic Press 46.5 mmHg PV Peak Velocity 91.0 cm/s PV Peak Gradient 3.3 mmHg PV Mean Velocity 60.0 cm/s PV Mean Gradient 2.0 mmHg PV Velocity Time Integral 18.4 cm LV E' Lateral Velocity 11.3 cm/s Mitral E to LV E' Lateral Ratio 5.1 LV E' Septal Velocity 7.1 cm/s Mitral E to LV E' Septal Ratio 8.1
[2016-06-24 22:57] VITALS: BP 150/70
[2016-06-25 06:29] VITALS: BP 160/90
--- NOTE | 2016-06-25 07:17 | PN- Housestaff ---
CLIFFORD BRIONES 06/25/16 0716: Subjective Follow-up For: - COPD - Back pain, lumbar stenosis Subjective: She was in mild distress this morning when he saw her. Still complains of pain in the lower back, worse on moving. Grades 7-8/10. Oxygen [id number]% on 5 L oxygen. Remained afebrile overnight. Review of Systems Constitutional: Reports: see HPI. Objective Last 24 Hrs of Vital Signs/I&O Vital Signs Date Time Temp Pulse Resp B/P Pulse O2 O2 Flow FiO2 Ox Delivery Rate 06/25 0629 97.4 75 20 160/90 97 Nasal Cannula 06/25 0000 Nasal 5.0L Cannula 06/24 2257 98.6 77 26 150/70 98 Nasal 5.0L Cannula 06/24 1600 Nasal 5.0L Cannula 06/24 1350 96.8 72 26 120/80 95 06/24 0800 Nasal 5.0L Cannula Intake & Output 06/25 0800 06/25 0000 06/24 1600 Intake Total 240 200 800 Output Total 600 200 Balance -360 0 800 Intake, Oral 240 200 800 Number 1 1 Bowel Movements Output, Urine 600 200 Physical Exam General Appearance: No Acute Distress Other Physical Findings: General Exam: AAOx3, mild acute distress, Skin: No rashes, no breakdown HEENT: PERRLA, EOMI Neck: Supple, No JVD No cervical lymphadenopathy CVS: Reg Rate, Normal S1,S2, No MGR Resp: Low air entry, ronchi/rales+. Abdomen: Soft, No tenderness, Normal Bowel Sounds Neuro: Normal Speech, Strength 5/5 b/l x 4 extremities, Sensation intact, CN III -XII NL, Reflexes 2+, tenderness on the lower back-right side. Extremities: No cyanosis, no pedal edema, Current Medications: Current Medications Sig/Juan Carlos Start time Last Medication Dose Route Stop Time Status Admin Acetaminophen 650 MG Q6P PRN 06/22 2330 AC PO Albuterol Sulfate 2 PUF Q4P PRN 06/23 0130 AC 06/24 INH 1025 Alprazolam 0.5 MG 2300 06/23 2300 AC 06/24 PO 06/309 2201 Brimonidine Tartrate 1 GTT BID 06/23 220 AC 06/24 OPH 2013 Budesonide/ 2 PUF BID 02/15 0245 AC 06/24 Formoterol Fumarate INH 2012 Cyclobenzaprine HCl 2.5 MG TID PRN 06/24 0934 AC 06/24 PO 2013 Cyclobenzaprine HCl 5 MG TID 06/24 0930 DC PO Dorzolamide HCl 1 GTT BID 06/23 1346 AC 06/24 OPH 2013 Heparin Sodium 5,000 UNIT Q8 06/22 2326 AC 06/25 (Porcine) SC 0637 Latanoprost 1 GTT AT BEDTIME 06/23 2200 AC 06/24 OPH 2202 Lidocaine 1 PAT DAILY 06/23 1000 AC 06/24 EXT 0913 Omeprazole 40 MG DAILY AC 06/23 0700 AC 06/25 PO 0637 Oxycodone/ 1 TAB Q4P PRN 06/23 0145 AC 06/25 Acetaminophen PO 0636 Polyethylene Glycol 17 GM DAILY 06/23 1345 AC 06/24 PO 0912 Prednisone 5 MG DAILY 06/23 1000 AC 06/24 PO 0912 Senna/Docusate Sodium 1 TAB BID PRN 06/23 1345 AC PO Sodium Chloride 2 SPRAY Q4P PRN 06/23 1445 AC 06/24 KORIN 2103 Theophylline 200 MG DAILY 06/23 1000 AC 06/24 PO 0805 Tiotropium [place] 1 PUF DAILY 06/23 1000 AC 06/24 INH 0756 Tramadol HCl 50 MG BID PRN 06/24 0932 AC 06/24 PO 210 Tramadol HCl 50 MG BID 06/23 1000 DC 06/23 PO 205 Assessment/Plan Assessment: An older lady with a 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 No neurological signs. Remained afebrile overnight. Vitals are stable. Differential diagnoses: #1 lumbar pedicle operative/back pain #2 COPD Below is the problem list and plan: #1 back pain-no neurological deficits. Likely because of canal stenosis and degenerative changes. Pain is still inadquately controlled. Pain management w/ tramadol, Lidoderm patch, Percocet and Flexeril. Increase the dose of Flexeril. Neurosurgical evaluation as an outpatient. Also started on prednisone 20mg x 3 days, and followed by 10mg for 10 days, as per Dr Coleman recommendation.Try an alternative pain management therapy. #2 COPD-no change compared to baseline. Continue tiotropium 1 puff daily inhalation, theophylline 200 mg by mouth daily, (low theophylline levels ), Symbicort 2 puffs twice a day. May change to prednisone taper, at the time of discharge. #3 hypertension-currently losartan, hydrochlorothiazide on hold. Blood pressure stable. Start Lasix po as an outpatient. #4 abnormal renal function-serum creatinine slightly elevated to 1.0. Continue to monitor. Avoid NSAIDs. #5 left lower extremity swelling-negative for DVT. Encourage ambulation. #6 glaucoma-continue her home medications of brimonidine, latanoprost, dorzolamide. #6 DVT prophylaxis-heparin subcutaneous. Problem List: 1. Emphysema lung 2. Back pain Pain Ratin Pain Location: Lower back Pain Goal: Pain 4 or less Pain Plan: Tramadol Percocet Lidoderm patch Tomorrow's Labs & Rationales: No labs necessary. Patient stable SHAGUFTA LONG,ALEX 06/25/16 1200: Attending MD Review Statement Attending Statement Attending MD Statement: examined this patient, discuss w/resident/PA/MARINE DESIGN ENGINEER, agreed w/resident/PA/MARINE DESIGN ENGINEER, reviewed EMR data (avail), discussed with nursing, discussed with case mgmt, reviewed images, amended to note Attending Assessment/Plan: Patient seen and examined, not feeling well. She still complaining of excruciating back pain and said that her breathing status is not back to baseline yet. Vital Signs Date Time Temp Pulse Resp B/P Pulse O2 O2 Flow FiO2 Ox Delivery Rate 06/25 0800 Nasal 5.0L Cannula 06/25 0629 97.4 75 20 160/90 97 Nasal Cannula 06/25 0000 Nasal 5.0L Cannula 06/24 2257 98.6 77 26 150/70 98 Nasal 5.0L Cannula 06/24 1600 Nasal 5.0L Cannula 06/24 1350 96.8 72 26 120/80 95 on exam; aox3, nad. cv; s1,s2, rrr. resp; decreased bs overall. abd; soft, nt, bs+ ext; no edema. 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 At this point will start her on 20 mg of prednisone and start the taper as recommended by Dr. Seals which is a slow taper. Please increase the dose of Flexeril 5 mg 3 times a day when necessary. Please make following changes in her pain regimen. Please start on Tylenol thousand milligrams 3 times a day scheduled. Please keep her on tramadol twice a day but change it to scheduled. Please start on oxycodone 5 mg every 6 hours when necessary. Please keep the Lidoderm patch on her back. Continue TRC nabs and inhalers. DVT prophylaxis: Heparin subcutaneous. If patient feels better with improved breathing status as well as pain control and likely she can be discharged home with home services tomorrow
--- NOTE | 2016-06-25 10:00 | PN- Pulmonary ---
Subjective HPI/Critical Care Issues: More fatigued Dyspneic afebrile Did have an episode of dyspnea last night Objective Current Medications: Current Medications Sig/Juan Carlos Start time Last Medication Dose Route Stop Time Status Admin Acetaminophen 650 MG Q6P PRN 06/22 2330 AC PO Albuterol Sulfate 2 PUF Q4P PRN 06/23 0130 AC 06/25 INH 0700 Alprazolam 0.5 MG 2300 06/23 2300 AC 06/24 PO 06/30 2259 2201 Brimonidine Tartrate 1 GTT BID 06/23 2200 AC 06/25 OPH 0810 Budesonide/ 2 PUF BID 06/23 0245 AC 06/25 Formoterol Fumarate INH 0753 Cyclobenzaprine HCl 2.5 MG TID PRN 06/24 0934 AC 06/25 PO 0748 Dorzolamide HCl 1 GTT BID 06/23 1346 AC 06/25 OPH 0810 Heparin Sodium 5,000 UNIT Q8 06/22 2326 AC 06/25 (Porcine) SC 0637 Latanoprost 1 GTT AT BEDTIME 06/23 2200 AC 06/24 OPH 2202 Lidocaine 1 PAT DAILY 06/23 1000 AC 06/25 EXT 0748 Omeprazole 40 MG DAILY AC 06/23 0700 AC 06/25 PO 0637 Oxycodone/ 1 TAB Q4P PRN 06/23 0145 AC 06/25 Acetaminophen PO 0636 Polyethylene Glycol 17 GM DAILY 06/23 1345 AC 06/25 PO 0751 Prednisone 5 MG DAILY 06/23 1000 AC 06/25 PO 0750 Senna/Docusate Sodium 1 TAB BID PRN 06/23 1345 AC PO Sodium Chloride 2 SPRAY Q4P PRN 06/23 1445 AC 06/24 KORIN 2103 Theophylline 200 MG DAILY 06/23 1000 AC 06/24 PO 0805 Tiotropium [place] 1 PUF DAILY 06/23 1000 AC 06/25 INH 0753 Tramadol HCl 50 MG BID PRN 06/24 0932 AC 06/24 PO 2102 Vital Signs & I&O Last 24 Hrs of Vitals and I&O: Vital Signs Date Time Temp Pulse Resp B/P Pulse O2 O2 Flow FiO2 Ox Delivery Rate 06/25 0629 97.4 75 20 160/90 97 Nasal Cannula 06/25 0000 Nasal 5.0L Cannula 06/24 2256 98.6 77 26 150/70 98 Nasal 5.0L Cannula 06/24 1599 Nasal 5.0L Cannula 06/24 1350 96.8 72 26 120/80 95 Intake & Output 06/25 1600 06/25 0800 06/25 0000 Intake Total 240 200 Output Total 600 200 Balance -360 0 Intake, Oral 240 200 Number 1 Bowel Movements Output, Urine 600 200 Impression/Plan Impression/Plan Impression/Plan: Physical Exam General Appearance Alert, Oriented X3, Cooperative, No Acute Distress Skin erythema HEENT Atraumatic, PERRLA, EOMI Neck Supple, No JVD Cardiovascular Normal S1, Normal S2, murmur Lungs decrease air entry, she is not able to complete the sentence, prolonged expiration with mild wheezing Abdomen Soft, No Tenderness Neurological Normal Speech Extremities No Clubbing, No Cyanosis, increased edema in the left lower limb than the right Vascular Normal Pulses, Pulses Symmetrical IMPRESSION This is an elderly lady with very severe COPD with preterminal emphysema was on 5-6 L of oxygen at rest, who has significant shortness of breath at rest, poor performance status now here with * Severe low back pain due to severe spinal stenosis * Very severe emphysema with very poor pulmonary reserve with shortness of breath on rest, no obvious clinical exacerbation of COPD but patient has been on long-term steroids hence immunosuppressed, Pt does have worsening resp failure * Chronic hypoxemic and hypercarbic respiratory failure * Chronic cor pulmonale * Mild CKD * 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 artery stenosis with atherosclerosis * A new lung nodule which could be a slow-growing malignancy which has not been present at 2011 in a preterminal COPD patient at this time it's not clinically relevant * Degenerative joint disease with chronic arthritis on tramadol * Hypertension, hyperlipidemia, atherosclerosis, GERD and vitamin D deficiency * Chronic choledocholithiasis, previous appendectomy history, with recent biliary infection not clinically significant at this time in stable Recommendation * Start prednisone 20 qd for three days and then 10 qd for six days and then five mg daily * Adequate pain control. Avoid narcotics. If her pain becomes very severe we' ll start her on prednisone 20 mg daily for 5 days then 10 mg daily for 5 days then 5 mg reduce the swelling around the nerves in the lumbosacral area as she has severe spinal stenosis * COnt all out pt meds * Continue her outpatient inhaler therapy. nebulizer treatment with albuterol only if she wants it. Continue all her other respiratory medications including theophylline. Continue oxygen and keep her saturation at 90%. * Continue her other outpatient medications Prognosis is guarded patient is DNR/DNI
[2016-06-25] MEDS ORDERED: PREDNISONE5 M1 PO (11:02)
[2016-06-25] MEDS ORDERED: CYCLOBENZAPRINE5 M2 PO ×2 (11:04→15:29)
--- NOTE | 2016-06-25 12:11 | NUR ---
PT WEARS 5L HOME 02. SATURATIONS 97% ON 5L AT REST. AMBULATED WITHIN ROOM AND SATURATIONS MAINTAINED AT 93%. PT STATES SHE FEELS MORE SHORT OF BREATH AFTER SHE SITS POST AMBULATION. SATURATIONS BETWEEN 88-92% WHILE ON 5L ON REST AFTER AMBULATION.
[2016-06-25 14:57] VITALS: BP 150/80
[2016-06-25] MEDS ORDERED: OXYCODONE HCL5 M1 PO (14:57)
[2016-06-25] MEDS ORDERED: TYLENOL EXTRA500 M2 PO (14:57)
[2016-06-25 21:56] VITALS: BP 160/80
--- NOTE | 2016-06-26 05:59 | PN- Housestaff ---
CLIFFORD BRIONES 06/26/16 0558: Subjective Follow-up For: - back pain - COPD Subjective: Was comfortable this morning. Stated that patient's adequately controlled, but would like to see if she would have any pain when she moves on to the chair. Vitals remained stable overnight. He remained afebrile, pulse ox 98% on 5 L ( baseline-home oxygen). Pain scale 6/10, worse on movement, 8-9/10 on movement. Discussed with her about possible discharge today, but she insisted on staying for another 24 hours , to evaluate the adequacy of pain medication dosages. Review of Systems Constitutional: Reports: see HPI. Objective Last 24 Hrs of Vital Signs/I&O Vital Signs Date Time Temp Pulse Resp B/P Pulse O2 O2 Flow FiO2 Ox Delivery Rate 06/26 0000 99 Nasal 5.0L Cannula 06/25 2156 97.6 70 20 160/80 99 Nasal 5.0L Cannula 06/25 1600 Nasal 5.0L Cannula 06/25 1457 98.1 80 20 150/80 97 Room Air 06/25 0800 Nasal 5.0L Cannula 06/25 0629 97.4 75 20 160/90 97 Nasal Cannula Intake & Output 06/26 0800 06/26 0000 06/25 1600 Intake Total 400 600 Output Total 400 350 Balance 0 250 Intake, Oral 400 600 Output, Urine 400 350 Physical Exam General Appearance: No Acute Distress Other Physical Findings: General Exam: AAOx3, mild acute distress, Skin: No rashes, no breakdown HEENT: PERRLA, EOMI Neck: Supple, No JVD No cervical lymphadenopathy CVS: Reg Rate, Normal S1,S2, No MGR Resp: Normal air entry, no ronchi/rales Abdomen: Soft, No tenderness, Normal Bowel Sounds Neuro: Normal Speech, Strength 5/5 b/l x 4 extremities, Sensation intact, CN III -XII NL, Reflexes 2+, limited neurological exam due to pain in the back. Extremities: No cyanosis, no pedal edema Current Medications: Current Medications Sig/Juan Carlos Start time Last Medication Dose Route Stop Time Status Admin Acetaminophen 1,000 MG TID 06/25 1600 AC 06/25 PO 2221 Acetaminophen 650 MG Q6P PRN 06/22 2330 AC PO Albuterol Sulfate 2 PUF Q4P PRN 06/23 0130 AC 06/25 INH 0700 Alprazolam 0.5 MG 2300 06/23 2300 AC 06/25 PO 06/30 2259 2221 Brimonidine Tartrate 1 GTT BID 06/23 2200 AC 06/25 OPH 2219 Budesonide/ 2 PUF BID 06/23 0245 AC 06/25 Formoterol Fumarate INH 2222 Cyclobenzaprine HCl 5 MG TID PRN 06/25 1058 AC 06/25 PO 1410 Cyclobenzaprine HCl 2.5 MG TID PRN 06/24 0934 DC 06/25 PO 0748 Dorzolamide HCl 1 GTT BID 06/23 1346 AC 06/25 OPH 2219 Heparin Sodium 5,000 UNIT Q8 06/22 2326 AC 06/26 (Porcine) SC 0549 Latanoprost 1 GTT AT BEDTIME 06/23 2200 AC 06/25 OPH 2219 Lidocaine 1 PAT DAILY 06/23 1000 AC 06/25 EXT 0748 Omeprazole 40 MG DAILY AC 06/23 0700 AC 06/26 PO 0547 Oxycodone HCl 5 MG Q6P PRN 06/25 1330 AC PO Oxycodone/ 1 TAB Q4P PRN 06/23 0145 DC 06/25 Acetaminophen PO 1046 Polyethylene Glycol 17 GM DAILY 06/23 1345 AC 06/25 PO 0751 Prednisone 20 MG DAILY 06/26 1000 AC PO 06/27 1001 Prednisone 15 MG DAILY 06/25 1059 DC 06/25 PO 06/25 1100 1358 Prednisone 5 MG DAILY 06/23 1000 DC 06/25 PO 0750 Senna/Docusate Sodium 1 TAB BID PRN 06/23 1345 AC PO Sodium Chloride 2 SPRAY Q4P PRN 06/23 1445 AC 06/25 KORIN 2227 Theophylline 200 MG DAILY 06/23 1000 AC 06/25 PO 1005 Tiotropium [place] 1 PUF DAILY 06/23 1000 AC 06/25 INH 0753 Tramadol HCl 50 MG BID 06/25 2200 DC PO Tramadol HCl 50 MG 0800,06/25 2000 AC 06/25 PO 2001 Tramadol HCl 50 MG BID PRN 06/24 0932 DC 06/25 PO 06/25 2159 1005 Last 24 Hrs of Lab/Jb Results Last 24 Hrs of Labs/Mics: Laboratory Tests 06/25/16 0730: Anion Gap 5, Estimated GFR 59 L, BUN/Creatinine Ratio 24.4 Assessment/Plan Assessment: An older lady with a 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 No neurological signs. Remained afebrile overnight. Vitals are stable. Differential diagnoses: #1 lumbar pedicle operative/back pain #2 COPD Below is the problem list and plan: #1 back pain-no neurological deficits. Likely because of canal stenosis and degenerative changes. Pain is still inadquately controlled. Pain management w/ tramadol-scheduled dose, Lidoderm patch, oxycodone prn and Flexeril. Increase the dose of Flexeril to 5mg. Has not required any when necessary doses of oxycodone. Informed her of the availability of oxycodone if needed. Neurosurgical evaluation as an outpatient. Also started on prednisone 20mg x 3 days, and followed by 10mg for 10 days, as per Dr Coleman recommendation.Try an alternative pain management therapy. #2 COPD-no change compared to baseline. Continue tiotropium 1 puff daily inhalation, theophylline 200 mg by mouth daily, (low theophylline levels), Symbicort 2 puffs twice a day. May change to prednisone taper, at the time of discharge. #3 hypertension-currently hydrochlorothiazide on hold. Blood pressure slightly elevated. Discussed with Dr. Seals, if we could start hydrochlorothiazide at a low-dose. Start Lasix po as an outpatient, as per Dr. Seals's recommendation. #4 abnormal renal function-serum creatinine slightly elevated to 1.0. Continue to monitor. Avoid NSAIDs. #5 left lower extremity swelling-negative for DVT. Encourage ambulation. #6 glaucoma-continue her home medications of brimonidine, latanoprost, dorzolamide. #6 DVT prophylaxis-heparin subcutaneous. Problem List: 1. Emphysema lung 2. Back pain Pain Ratin Pain Location: lower back Pain Goal: Pain 4 or less Pain Plan: oxycodone tylenol Tomorrow's Labs & Rationales: no labs. pt to be dc ed. GIANNI LONG,[facility] 06/26/16 1256: Attending Review Statement Attending Statement Attending MD Statement: examined this patient, discuss w/resident/PA/CASING TIER, agreed w/resident/PA/CASING TIER, discussed with family, reviewed EMR data (avail), discussed with nursing, discussed with case mgmt, reviewed images, amended to note Attending Assessment/Plan: Condition sitting comfortably in chair. Does not offer any complaint. Her pain is well controlled. She lives at home with her son, who works from 2 PM to 11 PM and has 3 granddaughters and [id number] next-door. Patient can be discharged after physical therapy evaluation, a sure patient is okay to go home.
[2016-06-26 06:59] VITALS: BP 160/80
--- NOTE | 2016-06-26 12:15 | PN- Pulmonary ---
Subjective HPI/Critical Care Issues: He reports now new symptoms. He still has some dysphagia. Review of Systems Constitutional: Denies: chills, fever. Cardiovascular: Denies: chest pain. All Other Systems: Reviewed and Negative (odynophagia) Objective Current Medications: Current Medications Sig/Juan Carlos Start time Last Medication Dose Route Stop Time Status Admin Acetaminophen 1,000 MG TID 06/25 1600 AC 06/26 PO 0853 Acetaminophen 650 MG Q6P PRN 06/22 2330 AC PO Albuterol Sulfate 2 PUF Q4P PRN 06/23 0130 AC 06/25 INH 0700 Alprazolam 0.5 MG 2300 06/23 2300 AC 06/25 PO 06/30 2259 2221 Brimonidine Tartrate 1 GTT BID 06/23 2200 AC 06/26 OPH 0758 Budesonide/ 2 PUF BID 06/23 0245 AC 06/26 Formoterol Fumarate INH 0759 Cyclobenzaprine HCl 5 MG TID PRN 06/25 1058 AC 06/25 PO 1410 Dorzolamide HCl 1 GTT BID 06/23 1346 AC 06/26 OPH 0758 Heparin Sodium 5,000 UNIT Q8 06/22 2326 AC 06/26 (Porcine) SC 0549 Latanoprost 1 GTT AT BEDTIME 06/23 2200 AC 06/25 OPH 2219 Lidocaine 1 PAT DAILY 06/23 1000 AC 06/26 EXT 0758 Omeprazole 40 MG DAILY AC 06/23 0700 AC 06/26 PO 0547 Oxycodone HCl 5 MG Q6P PRN 06/25 1330 AC PO Oxycodone/ 1 TAB Q4P PRN 06/23 0145 DC 06/25 Acetaminophen PO 1046 Polyethylene Glycol 17 GM DAILY 06/23 1345 AC 06/26 PO 0757 Prednisone 20 MG DAILY 06/26 1000 AC 06/26 PO 06/27 1001 0759 Prednisone 5 MG DAILY 06/23 1000 DC 06/25 PO 0750 Senna/Docusate Sodium 1 TAB BID PRN 06/23 1345 AC PO Sodium Chloride 2 SPRAY Q4P PRN 06/23 1445 AC 06/25 KORIN 2227 Theophylline 200 MG DAILY 06/23 1000 AC 06/26 PO 0759 Tiotropium [place] 1 PUF DAILY 06/23 1000 AC 06/26 INH 0759 Tramadol HCl 50 MG BID 06/25 2200 DC PO Tramadol HCl 50 MG 0800,06/25 2000 AC 06/26 PO 0759 Tramadol HCl 50 MG BID PRN 06/24 0932 DC 06/25 PO 06/25 215 1005 Vital Signs & I&O Last 24 Hrs of Vitals and I&O: Vital Signs Date Time Temp Pulse Resp B/P Pulse O2 O2 Flow FiO2 Ox Delivery Rate 06/26 0800 Nasal 5.0L Cannula 06/26 0659 97.6 67 20 160/80 98 Nasal 5.0L Cannula 06/26 0000 99 Nasal 5.0L Cannula 06/25 2156 97.6 70 20 160/80 99 Nasal 5.0L Cannula 06/25 1600 Nasal 5.0L Cannula 06/25 1457 98.1 80 20 150/80 97 Room Air Intake & Output 06/26 1600 06/26 0800 06/26 0000 Intake Total 50 400 Output Total 325 400 Balance -275 0 Intake, IV 0 Intake, Oral 50 400 Number 0 Bowel Movements Output, Urine 325 400 Impression/Plan Impression/Plan Impression/Plan: Physical Exam General Appearance Alert, Oriented X3, Cooperative, No Acute Distress Skin erythema HEENT Atraumatic, PERRLA, EOMI Neck Supple, No JVD Cardiovascular Normal S1, Normal S2, murmur Lungs decrease air entry, she is not able to complete the sentence, prolonged expiration with mild wheezing Abdomen Soft, No Tenderness Neurological Normal Speech Extremities No Clubbing, No Cyanosis, increased edema in the left lower limb than the right Vascular Normal Pulses, Pulses Symmetrical IMPRESSION This is an elderly lady with very severe COPD with preterminal emphysema was on 5-6 L of oxygen at rest, who has significant shortness of breath at rest, poor performance status now here with * Severe low back pain due to severe spinal stenosis * Very severe emphysema with very poor pulmonary reserve with shortness of breath on rest, no obvious clinical exacerbation of COPD but patient has been on long-term steroids hence immunosuppressed, Pt does have worsening resp failure * Chronic hypoxemic and hypercarbic respiratory failure * Chronic cor pulmonale * Mild CKD * 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 artery stenosis with atherosclerosis * A new lung nodule which could be a slow-growing malignancy which has not been present at 2010 in a preterminal COPD patient at this time it's not clinically relevant * Degenerative joint disease with chronic arthritis on tramadol * Hypertension, hyperlipidemia, atherosclerosis, GERD and vitamin D deficiency * Chronic choledocholithiasis, previous appendectomy history, with recent biliary infection not clinically significant at this time in stable Recommendation * Prednisone 20 qd for three days and then 10 qd for six days and then five mg daily * Adequate pain control. Avoid narcotics. If her pain becomes very severe we' ll start her on prednisone 20 mg daily for 5 days then 10 mg daily for 5 days then 5 mg reduce the swelling around the nerves in the lumbosacral area as she has severe spinal stenosis * COnt all out pt meds * Continue her outpatient inhaler therapy. nebulizer treatment with albuterol only if she wants it. Continue all her other respiratory medications including theophylline. Continue oxygen and keep her saturation at 90%. * Continue her other outpatient medications OK TO DC TODAY Prognosis is guarded patient is DNR/DNI
[2016-06-26] MEDS ORDERED: SYMBICORT 16010.2 GM INH (13:57)
[2016-06-26 14:21] VITALS: BP 152/70
[2016-06-26 22:00] VITALS: BP 132/80
[2016-06-27 06:35] VITALS: BP 148/70
--- NOTE | 2016-06-27 07:33 | PN- Housestaff ---
CLIFFORD BRIONES 06/27/16 0733: Subjective Follow-up For: Back pain COPD Subjective: No complaints. Doing well. Pain adequatedly contorlled w/ current regimen. Vitals stable. She walked w/ the nursing staff w/ no difficulty. No imbalance issues. She is to be discharged w/ home physical therapy services. She is confident that she can walk w/ no difficulty or balance problems. Review of Systems Constitutional: Reports: see HPI. Objective Last 24 Hrs of Vital Signs/I&O Vital Signs Date Time Temp Pulse Resp B/P Pulse O2 O2 Flow FiO2 Ox Delivery Rate 06/27 0635 97.6 67 21 148/70 97 Nasal 5.0L Cannula 06/27 0000 95 Nasal 5.0L Cannula 06/26 2200 97.6 86 20 132/80 97 Nasal 5.0L Cannula 06/26 1600 95 Nasal 5.0L Cannula 06/26 1421 97.8 83 20 152/70 96 Nasal 5.0L Cannula 06/26 0800 Nasal 5.0L Cannula Intake & Output 06/27 0800 06/27 0000 06/26 1600 Intake Total 250 490 625 Output Total 350 400 Balance -100 490 225 Intake, IV 10 10 Intake, Oral 240 480 625 Number 2 Bowel Movements Output, Urine 350 400 Patient 122 lb Weight Physical Exam General Appearance: No Acute Distress Other Physical Findings: General Exam: AAOx3, mild acute distress, Skin: No rashes, no breakdown HEENT: PERRLA, EOMI Neck: Supple, No JVD No cervical lymphadenopathy CVS: Reg Rate, Normal S1,S2, No MGR Resp: Normal air entry, no ronchi/rales Abdomen: Soft, No tenderness, Normal Bowel Sounds Neuro: Normal Speech, Strength 5/5 b/l x 4 extremities, Sensation intact, CN III -XII NL, Reflexes 2+, limited neurological exam due to pain in the back. Extremities: No cyanosis, no pedal edema Current Medications: Current Medications Sig/Juan Carlos Start time Last Medication Dose Route Stop Time Status Admin Acetaminophen 1,000 MG .STK-MED ONE 06/26 1546 DC PO 06/26 1547 Acetaminophen 1,000 MG .STK-MED ONE 06/26 0837 DC PO 06/26 0838 Acetaminophen 1,000 MG TID 06/25 1600 AC 06/26 PO 2320 Acetaminophen 650 MG Q6P PRN 06/22 2330 AC PO Albuterol Sulfate 2 PUF Q4P PRN 06/23 0130 AC 06/25 INH 0700 Alprazolam 0.5 MG 2300 06/23 2300 AC 06/26 PO 06/30 2259 2206 Brimonidine Tartrate 1 GTT BID 06/23 2200 AC 06/26 OPH 2017 Budesonide/ 2 PUF BID 06/23 0245 AC 06/26 Formoterol Fumarate INH 2017 Cyclobenzaprine HCl 5 MG TID PRN 06/25 1058 AC 06/27 PO 0031 Dorzolamide HCl 1 GTT BID 06/23 1346 AC 06/26 OPH 2016 Heparin Sodium 5,000 UNIT Q8 06/22 2326 AC 06/27 (Porcine) SC 0606 Latanoprost 1 GTT AT BEDTIME 06/23 2200 AC 06/26 OPH 2208 Lidocaine 1 PAT DAILY 06/23 1000 AC 06/26 EXT 0758 Omeprazole 40 MG DAILY AC 06/23 0700 AC 06/27 PO 0606 Oxycodone HCl 5 MG Q6P PRN 06/25 1330 AC 06/27 PO 0028 Polyethylene Glycol 17 GM DAILY 06/23 1345 AC 06/26 PO 0757 Prednisone 20 MG DAILY 06/26 1000 AC 06/26 PO 06/27 1001 0759 Senna/Docusate Sodium 1 TAB BID PRN 06/23 1345 AC PO Sodium Chloride 2 SPRAY Q4P PRN 06/23 1445 AC 06/25 KORIN 2227 Theophylline 200 MG DAILY 06/23 1000 AC 06/26 PO 0759 Tiotropium [place] 1 PUF DAILY 06/23 1000 AC 06/26 INH 0759 Tramadol HCl 50 MG 0800,06/25 2000 AC 06/27 PO 0624 Assessment/Plan Assessment: An older lady with a 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 No neurological signs. Remained afebrile overnight. Vitals are stable. Differential diagnoses: #1 lumbar pedicle operative/back pain #2 COPD Below is the problem list and plan: #1 back pain-no neurological deficits. Likely because of canal stenosis and degenerative changes. Pain is adquately controlled. Pain management w/ tramadol- scheduled dose, Lidoderm patch, oxycodone prn and Flexeril. Increased the dose of Flexeril to 5mg. Neurosurgical evaluation as an outpatient. Also started on prednisone 20mg x 5 days, and followed by 10mg for 5 days, as per Dr Coleman recommendation.Try an alternative pain management therapy. #2 COPD-no change compared to baseline. Continue tiotropium 1 puff daily inhalation, theophylline 200 mg by mouth daily, (low theophylline levels), Symbicort 2 puffs twice a day. May change to prednisone taper, at the time of discharge. #3 hypertension-currently hydrochlorothiazide on hold. Blood pressure slightly elevated. Discussed with Dr. Seals, if we could start hydrochlorothiazide at a low-dose. Start Lasix po as an outpatient, as per Dr. Seals's recommendation. #4 abnormal renal function-serum creatinine slightly elevated to 1.0. Continue to monitor. Avoid NSAIDs. #5 left lower extremity swelling-negative for DVT. Encourage ambulation. #6 glaucoma-continue her home medications of brimonidine, latanoprost, dorzolamide. #6 DVT prophylaxis-heparin subcutaneous. Problem List: 1. Emphysema lung 2. Back pain Pain Ratin Pain Location: back Pain Goal: Pain 4 or less Pain Plan: flexeril tylenol oxycodone Tomorrow's Labs & Rationales: no labs necessary. pt to be discharged. GIANNI LONG,[facility] 06/27/16 1121: Attending MD Review Statement Attending Statement Attending MD Statement: examined this patient, discuss w/resident/PA/MOTOR CHECKER, agreed w/resident/PA/MOTOR CHECKER, discussed with family, reviewed EMR data (avail), discussed with nursing, discussed with case mgmt, reviewed images, amended to note Attending Assessment/Plan: Patient sitting comfortably on chair. Was little upset because she didn't get her medication on time last night, her back pain was worsened. Currently she feels better, has been ambulating without help. She can be discharged home today. Follow-up with her PCP, and pulmonary as an outpatient.
--- NOTE | 2016-06-27 11:05 | PN- Pulmonary ---
Subjective HPI/Critical Care Issues: DOing better On and off back pain Fatigued Objective Current Medications: Current Medications Sig/Juan Carlos Start time Last Medication Dose Route Stop Time Status Admin Acetaminophen 1,000 MG .STK-MED ONE 06/26 1546 DC PO 06/26 1547 Acetaminophen 1,000 MG TID 06/25 1600 AC 06/27 PO 1024 Acetaminophen 650 MG Q6P PRN 06/22 2330 AC PO Albuterol Sulfate 2 PUF Q4P PRN 06/23 0130 AC 06/25 INH 0700 Alprazolam 0.5 MG 2300 06/23 2300 AC 06/26 PO 06/30 2259 2206 Brimonidine Tartrate 1 GTT BID 06/23 2200 AC 06/27 OPH 0826 Budesonide/ 2 PUF BID 06/23 0245 AC 06/27 Formoterol Fumarate INH 0827 Cyclobenzaprine HCl 5 MG TID PRN 06/25 1058 AC 06/27 PO 0031 Dorzolamide HCl 1 GTT BID 06/23 1346 AC 06/27 OPH 0826 Heparin Sodium 5,000 UNIT Q8 06/22 2326 AC 06/27 (Porcine) SC 0606 Latanoprost 1 GTT AT BEDTIME 06/23 2200 AC 06/26 OPH 2208 Lidocaine 1 PAT DAILY 06/23 1000 AC 06/27 EXT 0827 Omeprazole 40 MG DAILY AC 06/23 0700 AC 06/27 PO 0606 Oxycodone HCl 5 MG Q6P PRN 06/25 1330 AC 06/27 PO 0754 Polyethylene Glycol 17 GM DAILY 06/23 1345 AC 06/27 PO 0828 Prednisone 20 MG DAILY 06/26 1000 DC 06/27 PO 06/27 1001 0827 Senna/Docusate Sodium 1 TAB BID PRN 06/23 1345 AC PO Sodium Chloride 2 SPRAY Q4P PRN 06/23 1445 AC 06/25 KORIN 2227 Theophylline 200 MG DAILY 06/23 1000 AC 06/27 PO 0827 Tiotropium [place] 1 PUF DAILY 06/23 1000 AC 06/27 INH 0827 Tramadol HCl 50 MG 0800,06/25 2000 AC 06/27 PO 0624 Vital Signs & I&O Last 24 Hrs of Vitals and I&O: Vital Signs Date Time Temp Pulse Resp B/P Pulse O2 O2 Flow FiO2 Ox Delivery Rate 06/27 0800 Nasal 5.0L Cannula 06/27 0635 97.6 67 21 148/70 97 Nasal 5.0L Cannula 06/27 0000 95 Nasal 5.0L Cannula 06/26 2200 97.6 86 20 132/80 97 Nasal 5.0L Cannula 06/26 1600 95 Nasal 5.0L Cannula 06/26 1421 97.8 83 20 152/70 96 Nasal 5.0L Cannula Intake & Output 06/27 1600 06/27 0800 06/27 0000 Intake Total 250 490 Output Total 350 Balance -100 490 Intake, IV 10 10 Intake, Oral 240 480 Output, Urine 350 Impression/Plan Impression/Plan Impression/Plan: Physical Exam General Appearance Alert, Oriented X3, Cooperative, No Acute Distress Skin erythema HEENT Atraumatic, PERRLA, EOMI Neck Supple, No JVD Cardiovascular Normal S1, Normal S2, murmur Lungs decrease air entry, she is not able to complete the sentence, prolonged expiration with mild wheezing Abdomen Soft, No Tenderness Neurological Normal Speech Extremities No Clubbing, No Cyanosis, increased edema in the left lower limb than the right Vascular Normal Pulses, Pulses Symmetrical IMPRESSION This is an elderly lady with very severe COPD with preterminal emphysema was on 5-6 L of oxygen at rest, who has significant shortness of breath at rest, poor performance status now here with * Severe low back pain due to severe spinal stenosis improving * Very severe emphysema with very poor pulmonary reserve with shortness of breath on rest, no obvious clinical exacerbation of COPD but patient has been on long-term steroids hence immunosuppressed, Pt does have worsening resp failure * Chronic hypoxemic and hypercarbic respiratory failure * Chronic cor pulmonale * Mild CKD * 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 Avoid narcotics. If her pain becomes very severe we' ll start her on prednisone 20 mg daily for 5 days then 10 mg daily for 5 days then 5 mg reduce the swelling around the nerves in the lumbosacral area as she has severe spinal stenosis * COnt all out pt meds * Continue her outpatient inhaler therapy. nebulizer treatment with albuterol only if she wants it. Continue all her other respiratory medications including theophylline. Continue oxygen and keep her saturation at 90%. * Continue her other outpatient medications OK TO DC TODAY Prognosis is guarded patient is DNR/DNI
[2016-06-27] MEDS ORDERED: PREDNISONE5 M1 PO ×3 (11:20→12:06)
[2016-06-27] MEDS ORDERED: CYCLOBENZAPRINE5 M2 PO (11:21)
[2016-06-27] MEDS ORDERED: OXYCODONE HCL5 M1 PO (11:21)
[2016-06-27] MEDS ORDERED: SYMBICORT 16010.2 GM INH (11:21)
[2016-06-27] MEDS ORDERED: TYLENOL EXTRA500 M2 PO (11:21)
== END 2016-06-27 15:05 | disposition home health service (06) | DRG 552 ==
LOC: ENRESERVTM → ENRESERVDT → ERH 16:40 → ENPENDDIS 22:53 → 2NA 22:53 → ERHI 22:53 → 2NA 06-23 00:59 → ERHI 06-23 00:59 → 2NA 06-23 01:00
PROVIDERS: Emergency Medicine; Internal Medicine; Internal Medicine Endocrinology, Diabetes & Metabolism; ADMIT Internal Medicine
DX: M48.06 Spinal stenosis, lumbar region (principal); J96.11 Chronic respiratory failure with hypoxia; I27.81 Cor pulmonale (chronic); J96.12 Chronic respiratory failure with hypercapnia; J43.9 Emphysema, unspecified; F41.9 Anxiety disorder, unspecified; M54.9 Dorsalgia, unspecified; N18.9 Chronic kidney disease, unspecified; I70.0 Atherosclerosis of aorta; E55.9 Vitamin D deficiency, unspecified; K21.9 Gastro-esophageal reflux disease without esophagitis; E78.5 Hyperlipidemia, unspecified; M51.36 Other intervertebral disc degeneration, lumbar region; Z99.81 Dependence on supplemental oxygen; Z87.891 Personal history of nicotine dependence; R91.1 Solitary pulmonary nodule; I12.9 Hypertensive chronic kidney disease with stage 1 through stage 4 chronic kidney disease, or unspecified chronic kidney disease
CPT/HCPCS: 2NASP; ERO; 36415; 81003; 82436; 93005; 93010; 93306; 96374; 96375; 97110-GO; 97116-GO; 97162-GP; 97530-GO; J1644; J1885; J2930; J3490; J7512

== ENCOUNTER 2016-10-14 06:17 | Inpatient (IN) | payer OTHER, MEDICARE ==
[~2016-10-14] VITALS: Ht 160 cm; Wt 52.6 kg
[~2016-10-14 06:17] MED LIST changes: +ALPRAZOLAM0.25 M1 PO; +CYCLOBENZAPRINE5 M2 PO; +FUROSEMIDE20 M1 PO; +HYDROCHLOROTH12.5 M3 PO; +LATANOPROST2.5 ML OPH; +MELATONIN5 M5 PO; +NASONEX17 GM NASB; +OXYCODONE HCL5 M1 PO; +PERCOCET 5-3251 EACH PO; +POTASSIUM CHLO20 ME2 PO; +SPIRIVA RESPIMAT4 GM INH; +SYMBICORT 16010.2 GM INH; +TYLENOL EXTRA500 M2 PO; +VITAMIN D31000 UNI2 PO
--- NOTE | 2016-10-14 06:30 | NUR ---
BIBA FROM HOME S/P FALL AT AROUND 0430 AM. PT ALERT AND ORIENTED TO PERSON, PLACE AND TIME. PT REPORTS TRIPPED AND LANDED ON RIGHT SIDE ON THE CARPETED FLOOR. C/O RIGHT HIP PAIN. POSITIVE PEDAL PULSE AND CMS. PT HAS CHRONIC BILATERAL PITTING EDEMA ON BILATERAL FOOT. NOTED ALSO LARGE HEMATOMA ON LEFT VEE AREA STATES "ITS FROM THE FALL" PT IS ALSO HAVE HISTORY OF ANXIETY. PT ARRIVES DIFFICULTY BREATHING WITH O2 SATURATION NOTED 89% ON 6L. PT HAS STAGE IV EMPHYSEMA. AUDIBLE WHEEZINESS. PT USING ACCESARY MUSCLES. TALKING ONLY ONE WORD AT A TIME. HEAD ELEVATED. CALLED AND EVALUATED THE PT. PAGED RT FOR BREATHING TREATMENT.
--- NOTE | 2016-10-14 06:34 | ED MVC/FALL/TRAUMA COMPLAINT ---
History of Present Illness General Chief Complaint: Fall Stated Complaint: BIBA FALL, HX CHF Source: patient, family, EMS Exam Limitations: no limitations Vital Signs & Intake/Output Vital Signs & Intake/Output Vital Signs Date Time Temp Pulse Resp B/P B/P Pulse O2 O2 Flow FiO2 Mean Ox Delivery Rate 10/14 1000 97.4 114 24 135/88 95 Nasal 10L Cannula 10/14 0815 95 Nasal 75% Cannula 10/14 08 96.4 116 24 147/65 98 Non ReBreather 10/14 0631 95.3 122 26 188/85 89 Nasal 2.0L Cannula Allergies Coded Allergies: Penicillins (Severe, HIVES, RASH 06/22/16) Uncoded Allergies: POLLENS (UNKNOWN 04/08/14) Reconcile Medications Acetaminophen (Tylenol Extra Strength) 500 MG TABLET 2 TAB PO TID pain . Albuterol Sulfate (Proventil Hfa) 90 MCG HFA.AER.AD 2 PUF INH Q4 PRN SOB ( Reported) Alprazolam 0.25 MG TABLET 2 TAB PO 2300 SLEEP (Reported) Brimonidine Tartrate (Alphagan P) (Unknown Strength) DROPS 1 DROP OPH BID GLAUCOMA - BOTH EYES (Reported) Budesonide/Formoterol Fumarate (Symbicort 160-4.5 Mcg Inhaler) 160 MCG-4.5 MCG/ ACTUATION HFA.AER.AD 2 PUF INH BID copd . Cholecalciferol (Vitamin D3) 1,000 UNIT TABLET 2 TAB PO QAM SUPPLEMENT ( Reported) Cyclobenzaprine HCl 5 MG TABLET 1 TAB PO TIDPRN muscle spasms . Dorzolamide HCl 2 % DROPS 1 GTT OPH BID GLAUCOMA - BOTH EYES (Reported) Furosemide 20 MG TABLET 1 TAB PO QAM EDEMA (Reported) please take Furosemide only when there is an increase in body weight. Latanoprost (Xalatan) 2.5 ML DROPS 1 GTT OPH 1900 GLAUCOMA (Reported) BOTH EYES Mometasone Furoate (Nasonex) 50 MCG SPRAY.PUMP 1 SPRAY NASB DAILY NEEDED NASAL CONGESTION (Reported) Omeprazole 40 MG CAPSULE.DR 1 CAP PO DAILY AC HEARTBURN (Reported) Prednisone 5 MG TABLET 1 TAB PO DAILY pain Please take 20 mg(4 tabs) on 06/28,06/29, 10 mg (2 tab) on 06/30,07/01,07/02,07/03/07/04. take 5mg after 07/04. Theophylline Anhydrous (Theophylline) 400 MG TABLET.ER 0.5 TAB PO QAM COPD ( Reported) Tiotropium [place] (Spiriva Respimat) 2.5 MCG/ACTUATION MIST.INHAL 2 PUFF INH QAM COPD (Reported) Tramadol HCl (Ultram) 50 MG TABLET 1 TAB PO BID pain (Reported) Triage Note: SEE NURSES NOTE Triage Nurses Notes Reviewed? yes Onset: Abrupt Duration: hour(s): Timing: single episode today Severity: moderate Injuries/Fall Location: right hip Method of Injury: fall Loss of Consciousness: no loss of consciousness Modifying Factors: Worsens With: movement, palpation. Associated Symptoms: nausea/vomiting : No (n) Patient currently breastfeeds: No HPI: 86 yo woman h/o stage IV copd, presents after a fall. She notes that she was walking to the bathroom and tripped on a rug. She landed on her right hip and now feels intense pain and is unable to bear weight. She did not hit her head. She does not have neck pain or headache. She did not feel syncopal before hand. She notes upon arrival that she has increased dyspnea. She declines nebs ("They make me nervous")... BIpap ("She is claustrophic and won' take it," per ) . (ALYSE LONG,ASHLEY Moreno) Past History Medical History Any Pertinent Medical History? 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 No (ALYSE LONG,ASHLEY Moreno) Review of Systems Review of Systems Constitutional: Reports: no symptoms. Eyes: Reports: no symptoms. Ears, Nose, Throat, Mouth: Reports: no symptoms. Respiratory: Reports: no symptoms. Cardiovascular: Reports: no symptoms. Gastrointestinal/Abdominal: Reports: no symptoms. Genitourinary: Reports: no symptoms. Musculoskeletal: Reports: no symptoms. Skin: Reports: no symptoms. Neurological/Psychological: Reports: no symptoms. All Other Systems: Reviewed and Negative (ALYSE LONG,ASHLEY Moreno) Physical Exam Physical Exam General Appearance: well developed/nourished, moderate distress Head: atraumatic, normal appearance Eyes: Bilateral: normal appearance. Ears, Nose, Throat, Mouth: hearing grossly normal Neck: normal inspection, supple, full range of motion Respiratory: decreased breath sounds, accessory muscle use, wheezing Cardiovascular: regular rate/rhythm Gastrointestinal: normal bowel sounds, soft, non-tender, no organomegaly Back: normal inspection, normal range of motion, vertebral tenderness Extremities: normal range of motion, right leg externally rotated. pain with passive ROM. 2+distal pulse. Neurologic/Psych: no motor/sensory deficits, awake, alert, oriented x 3 Skin: intact, normal color, warm/dry Core Measures ACS in differential dx? No Severe Sepsis Present: No Septic Shock Present: No (ALYSE LONG,ASHLEY Moreno) Progress Differential Diagnosis: fracture vs contusion vs other Pt also with stage iv copd. Plan of Care: Orders Procedure Date/time Status Nothing by Mouth 10/14 L Active Misc Message 10/14 1047 Active ED Holding Orders 10/14 1047 Active Code Status 10/14 1047 Active Admit to inpatient 10/14 1045 Active OXYGEN SETUP (GEN) 10/14 0836 Complete BLOOD CULTURE 10/14 0700 Active BLOOD CULTURE 10/14 0658 Active OXYGEN SETUP (GEN) 10/14 0645 Active PROTHROMBIN TIME 10/14 0645 Complete COMPREHENSIVE METABOLIC PANEL 10/14 0645 Complete CBC WITHOUT DIFFERENTIAL 10/14 0545 Complete B-TYPE NATRIURETIC PEP (BNP) 10/14 0545 Complete EKG 10/14 0545 Active TYPE & SCREEN (NOT X-MATCH) 10/14 644 Complete THERAPIST ORDERS 10/14 UNK Complete Laboratory Tests 10/14/16 0814: Anion Gap 8, Estimated GFR > 60, BUN/Creatinine Ratio 32.5 H, Glucose 121 H, Calcium 9.5, Total Bilirubin 0.6, AST 26, ALT 51, Alkaline Phosphatase 112, Pro- B-Natriuretic Pept 4040 H, Total Protein 6.4, Albumin 3.8, Globulin 2.6, Albumin/Globulin Ratio 1.5 10/14/16 0630: PT 10.2, INR 0.97, CBC w Diff NO MAN DIFF REQ, RBC 4.51, MCV 99.5 H, MCH 31.6 H, RDW 15.5 H, MPV 8.9, Gran % 65.9, Lymphocytes % 26.1, Monocytes % 5.7, Eosinophils % 2.0, Basophils % 0.3, Absolute Granulocytes 6.2, Absolute Lymphocytes 2.5, Absolute Monocytes 0.5, Absolute Eosinophils 0.2, Absolute Basophils 0, PUBS MCHC 31.7 L Microbiology 10/14 07 BLOOD: Blood Culture - ORD 10/14 629 BLOOD: Blood Culture - RECD Diagnostic Imaging: Viewed by Me: Radiology Read. Discussed w/RAD: Radiology Read. Initial ED EKG: normal axis, normal intervals, normal p-waves, normal QRS complex, normal sinus rhythm Hand-Off Endorsed To: ATIYA BERMUDEZ DO (ALYSE LONG,ASHLEY Moreno) Departure Departure Disposition: STILL A PATIENT Condition: Stable Clinical Impression Primary Impression: Fall Secondary Impressions: COPD (chronic obstructive pulmonary disease) Referrals: KELTON LONG,DEVANTE [place] (PCP/Family) Departure Forms: Customer Survey General Discharge Information (ALYSE LONG,ASHLEY Moreno) Admission Note Spoke With: JOHNATHON MONET M.D Documentation of Exam: Documentation of any treatments & extenuating circumstances including Concerns Regarding Discharge (functional status, medication knowledge or non-compliance, living conditions, etc.) that warrant an admission rather than observation: [The patient needs admission for oxygen, BiPAP, pulmonary consultation-Dr. Seals was paged and will see patient, orthopedic consultation and possible open reduction and internal fixation of the right hip, consider CT imaging of the thoracic spine.] Patient was signed out to me by Dr. Wallace. She is been admitted to the hospital for further care. (ATIYA BERMUDEZ DO)
--- NOTE | 2016-10-14 07:16 | RADIOLOGY REPORT ---
EXAMINATION: XR PORTABLE CHEST CLINICAL INFORMATION: Hypoxia/dyspnea. COMPARISON: Chest x-ray 06/22/2016. TECHNIQUE: Portable frontal view of the chest was obtained. FINDINGS: New small bilateral pleural effusions with adjacent basilar airspace opacities. Interstitium is slightly more prominent, particularly at the bases with findings suggesting mild interstitial pulmonary edema. There is no pneumothorax. Cardiac silhouette size is stable. There are no acute osseous findings. IMPRESSION: Small bilateral pleural effusions and mild interstitial pulmonary edema. There are bibasilar airspace opacities.
[2016-10-14 07:21] LABS: ABSOLUTE BASOPHIL COUNT 0 /CUMM (0.0-0.2); ABSOLUTE EOSINOPHIL COUNT 0.2 /CUMM (0.0-0.7); ABSOLUTE GRANULOCYTE CT 6.2 /CUMM (1.4-6.5); ABSOLUTE LYMPH COUNT 2.5 /CUMM (1.2-3.4); ABSOLUTE MONOCYTE COUNT 0.5 /CUMM (0.10-0.60); BASOPHIL % 0.3 % (0.0-2.0); GRANULOCYTE % 65.9 % (42.2-75.2); HEMATOCRIT 44.8 % (37-47); MEAN CORPUSCULAR HGB 31.6 PG (27.0-31.0); MEAN CORPUSCULAR HGB CONC 31.7 G/DL (33.0-37.0); MEAN CORPUSCULAR VOLUME 99.5 FL (81.0-99.0); MEAN PLATELET VOLUME 8.9 FL (7.4-10.4); PLATELET COUNT 172 /CUMM (130-400); RBC DISTRIBUTION WIDTH 15.5 % (11.5-14.5); RED BLOOD CELL CT 4.51 /CUMM (4.20-5.40); WHITE BLOOD CELL COUNT 9.4 /CUMM (4.8-10.8)
--- NOTE | 2016-10-14 07:22 | NUR ---
MARIA DEL CARMEN CAMILO Nurse Note by: BRUCE GRACE. I agree with the IT APPLICATIONS MANAGER findings/evaluation of this patient's condition. Entered by: BRUCE GRACE. Date: 10/14/16 Time: 07
[2016-10-14 07:40] LABS: PT 10.2 SEC (9.4-12.5)
--- NOTE | 2016-10-14 07:51 | NUR ---
PT TO RAD.
--- NOTE | 2016-10-14 08:10 | NUR ---
PT PLACED ON HIGHFLOW NASAL WITH HUMIDIFIED AIR BY RESPIRATORY.
--- NOTE | 2016-10-14 08:17 | NUR ---
CMP AND TYPE & SCREEN DRAWN AND SENT TO THE LAB
--- NOTE | 2016-10-14 08:35 | RADIOLOGY REPORT ---
EXAMINATION: XR PELVIS XR HIP, RIGHT CLINICAL INFORMATION: Fracture. COMPARISON: Scanogram from abdomen and pelvis CT 07/25/2016. TECHNIQUE: Single view pelvis, 2 views of the right hip. FINDINGS: There is diffuse osteopenia. There is a subcapital fracture of the proximal right femur with one shaft width superior displacement of the distal fragment. Deformity of the inferior pubic rami suggest old healed fractures. Linear lucency overlying the right superior pubic ramus is likely related to stool and gas in the low lying rectum. There is extensive atherosclerotic arterial calcification. IMPRESSION: Right-sided hip fracture. No other acute fractures are seen.
--- NOTE | 2016-10-14 08:57 | NUR ---
PT C/O RT HIP PAIN - MD AWARE.
--- NOTE | 2016-10-14 09:27 | NUR ---
Informed waiting has been performed.
--- NOTE | 2016-10-14 09:54 | NUR ---
PRIOR IV FELL OUT. NEW IV EST.MEDICATED WITH MORPHINE (SEE MAR) MD BERMUDEZ TO [facility].
--- NOTE | 2016-10-14 10:35 | NUR ---
PT TO BE ADMITTED.
--- NOTE | 2016-10-14 10:54 | NUR ---
PT REPOSITIONED IN BED.
--- NOTE | 2016-10-14 11:37 | NUR ---
MEDICATED WITH ROXICODONE AND TYLENOL FOR PAIN PRN (SEE MAR)
--- NOTE | 2016-10-14 11:38 | NUR ---
HOUSE STAFF TO [facility].
--- NOTE | 2016-10-14 11:46 | NUR ---
LASIX ADMINISTERED ORDERED (SEE MAR)
--- NOTE | 2016-10-14 12:00 | NUR ---
PT ASSIGNED ROOM 216 BED 2.
[2016-10-14] MEDS ORDERED: DULERA 100 MCG/13 GM INH (12:27)
[2016-10-14] MEDS ORDERED: TYLENOL EXTRA500 M2 PO (12:27)
--- NOTE | 2016-10-14 12:40 | NUR ---
TRIMBLE CATH PLACED WITH AVTAR De La Cruz PT TOLERATED WELL.
--- NOTE | 2016-10-14 12:48 | History & Physical ---
General Information and HPI MD Statement: I have seen and personally examined MARIA DEL CARMEN CAMILO and documented this H&P. The patient is a 86 year old F who presented with a patient stated chief complaint of [fall and hip fracture]. Source of Information: patient, family, old records Exam Limitations: no limitations History of Present Illness: Patient is 86-year-old female with significant past medical history of end-stage COPD/emphysema on 5 L home oxygen, chronic steroids(prednisone 5 mg) ,hyper tension, history of cholecystitis with cholelithiasis who was brought into the ED after a fall at home early this morning. Patient's son states that she fell down while trying to walk downstairs to get some water. She fell down on the landing at around 4.30 AM this a morning. It was a unwitnessed mechanical fall, patient tripped on a rug. She landed on her right hip and hit her head on the floor. She did not lose consciousness, no lightheadedness, no palpitations, no chest pain, no seizure-like activity, no bowel or bladder dysfunction. The son called the EMS since the unable to bear weight and had intense pain in her right hip. On arrival to the ED patient was significantly dyspneic requiring about 10 L of oxygen. She complained of pain in the back between her shoulder blades and was found to be in moderate distress. Vitals noted to be temperature 98.1 pulse 122, respiration 26, BP 188/85, 95% on high flow oxygen Labs showed normal white count, sodium 141, potassium 3.9, normal LFTs, proBNP 4040, troponins pending. ABG showed EKG showed sinus tach with a rate of 120 bpm, left ventricular hypertrophy, PVCs , QTC 496 Chest x-ray showed bilateral pleural effusion with mild interstitial pulmonary edema and bibasilar airspace opacities. Hip x-ray: Right-sided hip fracture Patient received 6 g IV morphine in the ED. Allergies/Medications Allergies: Coded Allergies: Penicillins (Severe, HIVES, RASH 06/22/16) Uncoded Allergies: POLLENS (UNKNOWN 04/08/14) Home Med list Acetaminophen (Tylenol Extra Strength) 500 MG TABLET 2 TAB PO BID PAIN ( Reported) Albuterol Sulfate (Proventil Hfa) 90 MCG HFA.AER.AD 2 PUF INH Q4 PRN SOB ( Reported) Alprazolam 0.25 MG TABLET 2 TAB PO TID SLEEP (Reported) Brimonidine Tartrate (Alphagan P) (Unknown Strength) DROPS 1 DROP OPH BID GLAUCOMA - BOTH EYES (Reported) Dorzolamide HCl 2 % DROPS 1 GTT OPH BID GLAUCOMA - BOTH EYES (Reported) Furosemide 20 MG TABLET 1 TAB PO QAM EDEMA (Reported) please take Furosemide only when there is an increase in body weight. Latanoprost (Xalatan) 2.5 ML DROPS 1 GTT OPH 1900 GLAUCOMA (Reported) BOTH EYES Mometasone Furoate (Nasonex) 50 MCG SPRAY.PUMP 1 SPRAY NASB DAILY NEEDED NASAL CONGESTION (Reported) Mometasone/Formoterol (Dulera 100 Mcg/5 Mcg Inhaler) 100 MCG-5 MCG/ACTUATION HFA.AER.AD 2 PUF INH BID COPD (Reported) Omeprazole 40 MG CAPSULE.DR 1 CAP PO DAILY AC HEARTBURN (Reported) Prednisone 5 MG TABLET 1 TAB PO DAILY pain Please take 20 mg(4 tabs) on 06/28,06/29, 10 mg (2 tab) on 06/30,07/01,07/02,07/03/07/04. take 5mg after 07/04. 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)), emphysema, O2 DEP 5 L @ [facility] Gastrointestinal: GERD Hepatic: cholelithiasis Renal: NONE Musculoskeletal: PELVIC FX Psychiatric: anxiety Endocrine: NONE Blood Disorders: NONE 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 yes Review of Systems Review of Systems Constitutional: Reports: malaise, weakness. EENTM: Reports: no symptoms. Cardiovascular: Reports: no symptoms. Respiratory: Reports: orthopnea, short of breath, wheezing. GI: Reports: no symptoms. Genitourinary: Reports: no symptoms. Musculoskeletal: Reports: back pain, joint pain (right hip pain, back pain). Skin: Reports: change in skin color. Neurological/Psychological: Reports: no symptoms. Exam & Diagnostic Data Last 24 Hrs of Vital Signs/I&O Vital Signs Date Time Temp Pulse Resp B/P B/P Pulse O2 O2 Flow FiO2 Mean Ox Delivery Rate 10/14 1200 95 Nasal 75% Cannula 10/14 1159 98.1 109 20 126/56 95 Nasal 75% Cannula 10/14 1137 97.4 10/14 1000 97.4 114 24 135/88 95 Nasal 10L Cannula 10/14 0815 95 Nasal 75% Cannula 10/14 0806 96.4 116 24 147/65 98 Non ReBreather 10/14 0631 95.3 122 26 188/85 89 Nasal 2.0L Cannula Intake & Output 10/14 1600 08 0800 10/14 0000 Intake Total Output Total Balance Patient 52.617 kg Weight Physical Exam General Appearance Alert, Oriented X3, Moderate Distress, not able to speak in full sentences Skin big bruise over left lower leg Skin Temp/Moisture Exam: Warm/Dry Sepsis Skin Exam (color): Normal for Ethnicity HEENT Atraumatic, PERRLA, EOMI, high flow oxygen Neck Supple, No JVD Lymphatic Cervical nl Cardiovascular Normal S1, Normal S2, tachycardia Lungs bilateral wheezes and ronchi Abdomen Normal Bowel Sounds, Soft Neurological Normal Tone, Sensation Intact, Cranial Nerves 3-12 NL Extremities right leg shortened and adducted Last 24 Hrs of Labs/Jb: Laboratory Tests 10/14/16 1225: pH 7.33 L, pCO2 61 *H, pO2 101 H, HCO3 31 H, ABG O2 Sat (Measured) 96.0, Carboxyhemoglobin 1.7, O2 Concentration % 75%, O2 Delivery Method [id number], Phlebotomy Draw Site RIGHT RADIAL 10/14/16 1127: Troponin I Pending 10/14/16 0814: Anion Gap 8, Estimated GFR > 60, BUN/Creatinine Ratio 32.5 H, Glucose 121 H, Calcium 9.5, Total Bilirubin 0.6, AST 26, ALT 51, Alkaline Phosphatase 112, Pro- B-Natriuretic Pept 4040 H, Total Protein 6.4, Albumin 3.8, Globulin 2.6, Albumin/Globulin Ratio 1.5 10/14/16 0630: PT 10.2, INR 0.97, CBC w Diff NO MAN DIFF REQ, RBC 4.51, MCV 99.5 H, MCH 31.6 H, RDW 15.5 H, MPV 8.9, Gran % 65.9, Lymphocytes % 26.1, Monocytes % 5.7, Eosinophils % 2.0, Basophils % 0.3, Absolute Granulocytes 6.2, Absolute Lymphocytes 2.5, Absolute Monocytes 0.5, Absolute Eosinophils 0.2, Absolute Basophils 0, PUBS MCHC 31.7 L Microbiology 10/14 07 BLOOD: Blood Culture - ORD 10/14 629 BLOOD: Blood Culture - RECD Assessment/Plan Assessment: Patient is 86-year-old female with significant past medical history of end-stage COPD/emphysema on 5 L home oxygen, chronic steroids(prednisone 5 mg) ,hyper tension, history of cholecystitis with cholelithiasis who was brought into the ED after a fall at home early this morning. Vitals noted to be temperature 98.1 pulse 122, respiration 26, BP 188/85, 95% on high flow oxygen Labs showed normal white count, sodium 141, potassium 3.9, normal LFTs, proBNP 4040, troponins pending. EKG showed sinus tach with a rate of 120 bpm, left ventricular hypertrophy, PVCs , QTC 496 Chest x-ray showed bilateral pleural effusion with mild interstitial pulmonary edema and bibasilar airspace opacities. Hip x-ray: Right-sided hip fracture ABG showed 7.33/61/101/31 Last echocardiogram (06/14/2016): Stage I diastolic dysfunction, right ventricular systolic pressure more than 45 mm Patient received 6 g IV morphine in the ED. Assessment * Right-sided hip fracture * Acute hypoxic hypercarbic respiratory failure likely due to COPD exacerbation versus CHF * Back pain secondary to fall * End-stage COPD/emphysema on 5-7 L home oxygen * Pain due to fracture * Pulmonary edema * Elevated troponins likely demand Plan * Admit to telemetry * Vitals per protocol * 3 sets of troponin and EKG to rule out ACS * Bansal in, strict ins and outs and weight checks * Continue IV Lasix 20 daily * Get an ABG, if hypercarbic patient will require BiPAP. Patient refusing BIPAP as it makes it claustrophobic. * Maintain oxygen saturations more than 92%. * IV Solu-Medrol 40 every 8 hours for now * We will hold off on any antibiotics * Continue TRC nebs [id number], and aminophylline and Spiriva. * Maintain patient nothing by mouth for possible orthopedic surgery * Pain control with with IV Morphine. * Consider CT spine given patient complaining of pain in the back * Pulmonary consult with Dr. Seals * Orthopedic input/ patient is a poor surgical candidate. * Cardiology consult * Nothing by mouth * DVT prophylaxis subcutaneous heparin * DNR/DNI Patient is DNR/ DNI at this time. But if clinical condition worsens plan is to make her comfort care. Discussion of hospice in am. As Ranked By This Provider Problem List: 1. Fall 2. Back pain 3. Emphysema lung 4. COPD (chronic obstructive pulmonary disease) 5. Hip fracture, right Core Measures/Miscellaneous Acute Coronary Syndrome ACS Diagnosis: No Cerebrovascular Accident CVA/TIA Diagnosis: No Congestive Heart Failure CHF Diagnosis: Yes Date of most recent Echo: 06/24/16 Last Known EF %: 55 GRACIELA/ARB for EF <40%: No (ef>40) VTE (View Protocol) VTE Risk Factors: Age > 40, Immobility, paresis No Mech VTE prophylaxis d/t: No contraindications No VTE Pharm Prophylaxis d/t: No contraindications VTE Diagnosis: No VTE Type: NONE VTE Confirmed by (Test): NONE Sepsis (View Protocol) Severe Sepsis Present: No Septic Shock Septic Shock Present: No Miscellaneous Documentation Attending Case Discussed With: JOHNATHON MONET M.D Primary Care Physician: DEVANTE MELARA MD Patient sees these Specialists [place]nel Level of Patient Care: Telemetry
--- NOTE | 2016-10-14 12:50 | NUR ---
TRANSPORT CANCELLED, PT TO GO TO TELE NOW PER MD.
--- NOTE | 2016-10-14 12:50 | NUR ---
CRITICAL TEST RESULTS [id number] MARIA DEL CARMEN CAMILO 86 F TESTS AND RESULTS: TROPONIN 0.18 Results received and read back by: BOBBI FOREMAN Results received date and time: 10/14/16 1250 The following provider was notified of the results, and read the results back: MD SHEMAR Notified date and time: 10/14/16 at 1248
--- NOTE | 2016-10-14 13:25 | NUR ---
PT ADMITTED TO ROOM 176-1
--- NOTE | 2016-10-14 13:37 | NUR ---
REPORT TO FARHAN FERNANDEZ
--- NOTE | 2016-10-14 13:53 | NUR ---
MEDICATED WITH SOLUMEDROL 40MG AND 2MG MORPHINE (SEE MAR)
--- NOTE | 2016-10-14 13:58 | Cons- Pulmonary ---
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 Patient's son states that she fell down while trying to go to the bathroom at around 4 AM this a morning. It was a unwitnessed mechanical fall, patient tripped on a rug in her bedroom. She landed on her right hip and hit her head on the floor. She did not lose consciousness, no lightheadedness, no palpitations, no chest pain, no seizure-like activity, no bowel or bladder dysfunction. The son called the EMS since the unable to bear weight and had intense pain in her right hip. On arrival to the ED patient was significantly dyspneic requiring about 10 L of oxygen. She complained of pain in the back between her shoulder blades and was found to be in moderate distress. Vitals noted to be temperature 98.1 pulse 122, respiration 26, BP 188/85, 95% on high flow oxygen Labs showed normal white count, sodium 141, potassium 3.9, normal LFTs, proBNP 4040, troponins pending. ABG showed EKG showed sinus tach with a rate of 120 bpm, left ventricular hypertrophy, PVCs , QTC 496 Chest x-ray showed bilateral pleural effusion with mild interstitial pulmonary edema and bibasilar airspace opacities. Hip x-ray: Right-sided hip fracture Patient received 6 g IV morphine in the ED. REcently she has been getting worse and we were planning hospice with the patient as an out pt Allergies/Medications Allergies: Coded Allergies: Penicillins (Severe, HIVES, RASH 06/22/16) Uncoded Allergies: POLLENS (UNKNOWN 04/08/14) Home Med List: Acetaminophen (Tylenol Extra Strength) 500 MG TABLET 2 TAB PO BID PAIN ( Reported) Albuterol Sulfate (Proventil Hfa) 90 MCG HFA.AER.AD 2 PUF INH Q4 PRN SOB ( Reported) Alprazolam 0.25 MG TABLET 2 TAB PO TID SLEEP (Reported) Brimonidine Tartrate (Alphagan P) (Unknown Strength) DROPS 1 DROP OPH BID GLAUCOMA - BOTH EYES (Reported) Dorzolamide HCl 2 % DROPS 1 GTT OPH BID GLAUCOMA - BOTH EYES (Reported) Furosemide 20 MG TABLET 1 TAB PO QAM EDEMA (Reported) please take Furosemide only when there is an increase in body weight. Latanoprost (Xalatan) 2.5 ML DROPS 1 GTT OPH 1900 GLAUCOMA (Reported) BOTH EYES Mometasone Furoate (Nasonex) 50 MCG SPRAY.PUMP 1 SPRAY NASB DAILY NEEDED NASAL CONGESTION (Reported) Mometasone/Formoterol (Dulera 100 Mcg/5 Mcg Inhaler) 100 MCG-5 MCG/ACTUATION HFA.AER.AD 2 PUF INH BID COPD (Reported) Omeprazole 40 MG CAPSULE.DR 1 CAP PO DAILY AC HEARTBURN (Reported) Prednisone 5 MG TABLET 1 TAB PO DAILY pain Please take 20 mg(4 tabs) on 06/28,06/29, 10 mg (2 tab) on 06/30,07/01,07/02,07/03/07/04. take 5mg after 07/04. Theophylline Anhydrous (Theophylline) 400 MG TABLET.ER 0.5 TAB PO QAM COPD ( Reported) Tiotropium [place] (Spiriva Respimat) 2.5 MCG/ACTUATION MIST.INHAL 2 PUFF INH QAM COPD (Reported) Tramadol HCl (Ultram) 50 MG TABLET 1 TAB PO TID PAIN (Reported) Review of Systems Review of Systems Constitutional: Reports: see HPI. Comments Review of Systems Constitutional: Reports: malaise, weakness. EENTM: Reports: no symptoms. Cardiovascular: Reports: no symptoms. Respiratory: Reports: orthopnea, short of breath, wheezing. GI: Reports: no symptoms. Genitourinary: Reports: no symptoms. Musculoskeletal: Reports: back pain, joint pain (right hip pain, back pain). Skin: Reports: change in skin color. Neurological/Psychological: Reports: no symptoms. 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 yes Exam & Diagnostic Data Last 24 Hrs of Vital Signs/I&O Vital Signs Date Time Temp Pulse Resp B/P B/P Pulse O2 O2 Flow FiO2 Mean Ox Delivery Rate 10/14 1246 97 Nasal 75% Cannula 10/14 1200 95 Nasal 75% Cannula 10/14 1159 98.1 109 20 126/56 95 Nasal 75% Cannula 10/14 1137 97.4 10/14 1000 97.4 114 24 135/88 95 Nasal 10L Cannula 10/14 0815 95 Nasal 75% Cannula 10/14 0806 96.4 116 24 147/65 98 Non ReBreather 10/14 0631 95.3 122 26 188/85 89 Nasal 2.0L Cannula Intake & Output 10/14 1600 10/14 0800 10/14 0000 Intake Total Output Total Balance Patient 116 lb Weight Last 48 Hrs of Labs/Jb: Laboratory Tests 10/14/16 1225: pH 7.33 L, pCO2 61 *H, pO2 101 H, HCO3 31 H, ABG O2 Sat (Measured) 96.0, Carboxyhemoglobin 1.7, O2 Concentration % 75%, O2 Delivery Method [id number], Phlebotomy Draw Site RIGHT RADIAL 10/14/16 1127: Troponin I 0.18 *H 10/14/16 0814: Anion Gap 8, Estimated GFR > 60, BUN/Creatinine Ratio 32.5 H, Glucose 121 H, Calcium 9.5, Total Bilirubin 0.6, AST 26, ALT 51, Alkaline Phosphatase 112, Pro- B-Natriuretic Pept 4040 H, Total Protein 6.4, Albumin 3.8, Globulin 2.6, Albumin/Globulin Ratio 1.5 10/14/16 0630: PT 10.2, INR 0.97, CBC w Diff NO MAN DIFF REQ, RBC 4.51, MCV 99.5 H, MCH 31.6 H, RDW 15.5 H, MPV 8.9, Gran % 65.9, Lymphocytes % 26.1, Monocytes % 5.7, Eosinophils % 2.0, Basophils % 0.3, Absolute Granulocytes 6.2, Absolute Lymphocytes 2.5, Absolute Monocytes 0.5, Absolute Eosinophils 0.2, Absolute Basophils 0, PUBS MCHC 31.7 L Assessment/Plan Impression/Plan: Physical Exam General Appearance Alert, Oriented X3, Moderate Distress, not able to speak in full sentences Skin big bruise over left lower leg Skin Temp/Moisture Exam: Warm/Dry Sepsis Skin Exam (color): Normal for Ethnicity HEENT Atraumatic, PERRLA, EOMI, high flow oxygen Neck Supple, No JVD Lymphatic Cervical nl Cardiovascular Normal S1, Normal S2, tachycardia Lungs bilateral wheezes and ronchi Abdomen Normal Bowel Sounds, Soft Neurological Normal Tone, Sensation Intact, Cranial Nerves 3-12 NL Extremities right leg shortened and adducted This is an elderly lady with very severe COPD with preterminal emphysema was on 5-6 L of oxygen at rest, who has significant shortness of breath at rest, poor performance status now here with hip fracture with a fall Issues * Acute hypoxic and hypercarbic resp failure due to advancing terminal lung disease * Acute NSTMI due to terminal lung disease with sig hypoxia despite high oxygen supp at home * Pulm edema with CHF prob diastolic and systolic heart failure * Severe low back pain due to severe spinal stenosis and hip pain * Very severe emphysema with very poor pulmonary reserve with shortness of breath on rest, no obvious clinical exacerbation of COPD but patient has been on long-term steroids hence immunosuppressed * Chronic cor pulmonale * CKD * 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 artery stenosis with atherosclerosis * A new lung nodule which could be a slow-growing malignancy which has not been present at 2011 in a preterminal COPD patient at this time it's not clinically relevant * Degenerative joint disease with chronic arthritis on tramadol * Hypertension, hyperlipidemia, atherosclerosis, GERD and vitamin D deficiency * Chronic choledocholithiasis, previous appendectomy history, with recent biliary infection not clinically significant at this time in stable * Worsening performance status REC Discussed with patient before in my office and in the ed She is terminally ill and will not tolerate any surg. She does not want to be intubated and she wishes no further agg care She wishes to be comfortable She wishes symptomatic care and if worse in patient hospice Sons are aware as this as this was the plan as out pt Rx with morphine liberally if she gets worse inpatient hospice with complete comfort care only Nebs atc, steroids and lasix for now prog very poor DNR and DnI if worse comfort and if worse in patient hospice for now Consult Acknowledgment - Thank you for your consult request.
[2016-10-14 15:18] VITALS: BP 110/66
--- NOTE | 2016-10-14 17:52 | Cons- Cardiology ---
General Information and HPI Consulting Request Date of Consult: 10/14/16 Requested By: SHIV LONG,LAUREN Keen Reason for Consult: Positive Troponin Source of Information: patient, old records Exam Limitations: patient's age History of Present Illness: The patient is a 86-year-old female with severe underlying end-stage COPD. She was found to have fallen probably early this morning and was unable to get up for some hours. She has suffered a right-sided hip fracture. She was in some respiratory distress and was tachycardiac on presentation. Subsequently a troponin returned at 0.18. Repeat troponins are still pending. The EKG showed sinus tachycardia with right bundle branch block and ST-T wave abnormalities. The patient did not report any chest pain but was complaining of shortness of breath. This patient had an echocardiogram fairly recently which showed good left ventricular systolic function with at least moderate pulmonary hypertension. As per Dr. Seals's note she has been deteriorating and hospice has been considered for her. Allergies/Medications Allergies: Coded Allergies: Penicillins (Severe, HIVES, RASH 06/22/16) Uncoded Allergies: POLLENS (UNKNOWN 04/08/14) Home Med List: Acetaminophen (Tylenol Extra Strength) 500 MG TABLET 2 TAB PO BID PAIN ( Reported) Albuterol Sulfate (Proventil Hfa) 90 MCG HFA.AER.AD 2 PUF INH Q4 PRN SOB ( Reported) Alprazolam 0.25 MG TABLET 2 TAB PO TID SLEEP (Reported) Brimonidine Tartrate (Alphagan P) (Unknown Strength) DROPS 1 DROP OPH BID GLAUCOMA - BOTH EYES (Reported) Dorzolamide HCl 2 % DROPS 1 GTT OPH BID GLAUCOMA - BOTH EYES (Reported) Furosemide 20 MG TABLET 1 TAB PO QAM EDEMA (Reported) please take Furosemide only when there is an increase in body weight. Latanoprost (Xalatan) 2.5 ML DROPS 1 GTT OPH 1900 GLAUCOMA (Reported) BOTH EYES Mometasone Furoate (Nasonex) 50 MCG SPRAY.PUMP 1 SPRAY NASB DAILY NEEDED NASAL CONGESTION (Reported) Mometasone/Formoterol (Dulera 100 Mcg/5 Mcg Inhaler) 100 MCG-5 MCG/ACTUATION HFA.AER.AD 2 PUF INH BID COPD (Reported) Omeprazole 40 MG CAPSULE.DR 1 CAP PO DAILY AC HEARTBURN (Reported) Prednisone 5 MG TABLET 1 TAB PO DAILY pain Please take 20 mg(4 tabs) on 06/28,06/29, 10 mg (2 tab) on 06/30,07/01,07/02,07/03/07/04. take 5mg after 07/04. Theophylline Anhydrous (Theophylline) 400 MG TABLET.ER 0.5 TAB PO QAM COPD ( Reported) Tiotropium [place] (Spiriva Respimat) 2.5 MCG/ACTUATION MIST.INHAL 2 PUFF INH QAM COPD (Reported) Tramadol HCl (Ultram) 50 MG TABLET 1 TAB PO TID PAIN (Reported) Current Medications: Current Medications Sig/Juan Carlos Start time Last Medication Dose Route Stop Time Status Admin Acetaminophen 0 .STK-MED ONE 10/14 1135 DC PO Acetaminophen 325 MG Q6 PRN 10/14 1115 AC 10/14 PO 1137 Albuterol Sulfate 3 ML Q4P PRN 10/14 1630 AC INH Albuterol Sulfate 2 PUF Q4P PRN 10/14 1400 AC INH Alprazolam 0.5 MG TID 10/14 1600 AC 10/14 PO 10/21 1559 1707 Brimonidine Tartrate 1 GTT BID 10/14 2200 AC OPH Dorzolamide HCl 1 GTT BID 10/14 2200 AC OPH Enoxaparin Sodium 40 MG DAILY 10/14 1105 AC 10/14 SC 1711 Furosemide 40 MG DAILY 10/15 1000 DC IV PUSH Furosemide 20 MG DAILY 10/15 1000 AC IV PUSH Furosemide 40 MG ONCE ONE 10/14 1145 DC 10/14 IV PUSH 10/14 1146 1146 Furosemide 0 .STK-MED ONE 10/14 1144 DC IV Ketorolac 15 MG Q6P PRN 10/14 1115 AC Tromethamine IV Latanoprost 1 GTT 1900 10/14 1900 AC OPH Methylprednisolone 40 MG Q8 10/14 1400 AC 10/14 IV 1351 Methylprednisolone 0 .STK-MED ONE 10/14 1353 DC .ROUTE Morphine Sulfate 2 MG Q4P PRN 10/14 1400 AC 10/14 IV 1708 Morphine Sulfate 0 .STK-MED ONE 10/14 1354 DC .ROUTE Morphine Sulfate 2 MG ONCE ONE 10/14 1345 DC 10/14 IV 10/14 1346 1351 Morphine Sulfate 0 .STK-MED ONE 10/14 0952 DC .ROUTE Morphine Sulfate 2 MG STAT STA 10/14 0944 DC 10/14 IV 10/14 0945 0954 Morphine Sulfate 0 .STK-MED ONE 10/14 0653 DC .ROUTE Morphine Sulfate 4 MG ONCE ONE 10/14 0645 DC 10/14 IV 10/14 0646 0655 Oxycodone HCl 0 .STK-MED ONE 10/14 1135 DC PO Oxycodone HCl 5 MG Q6 PRN 10/14 1115 AC 10/14 PO 1137 Tiotropium [place] 1 PUF DAILY 10/14 1357 AC INH Review of Systems Review of Systems: She has no complaints in the review of systems at this time Past History Travel History Traveled to [place] past 21 day No Medical History Neurological: NONE EENT: glaucoma Cardiovascular: hypertension, EDEMA Respiratory: COPD (O2 dependent (5L at home)), emphysema, O2 DEP 5 L @ BASELINE Gastrointestinal: GERD Hepatic: cholelithiasis Renal: NONE Musculoskeletal: PELVIC FX Psychiatric: anxiety Endocrine: NONE Blood Disorders: NONE Cancer(s): STAGE 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 yes Exam & Diagnostic Data Vital Signs and I&O Vital Signs Date Time Temp Pulse Resp B/P B/P Pulse O2 O2 Flow FiO2 Mean Ox Delivery Rate 10/14 1619 Nasal 75% Cannula 10/14 1550 95 Nasal 75% Cannula 10/14 1518 97.1 110 20 110/66 95 10/14 1246 97 Nasal 75% Cannula 10/14 1200 95 Nasal 75% Cannula 10/14 1159 98.1 109 20 126/56 95 Nasal 75% Cannula 10/14 1137 97.4 10/14 1000 97.4 114 24 135/88 95 Nasal 10L Cannula 10/14 0815 95 Nasal 75% Cannula 10/14 0806 96.4 116 24 147/65 98 Non ReBreather 10/14 0631 95.3 122 26 188/85 89 Nasal 2.0L Cannula Intake & Output 10/14 1600 10/14 0800 10/14 0000 10/13 1600 10/13 0800 10/13 0000 Intake Total Output Total Balance Patient 116 lb Weight Physical Exam: Elderly female on high flow oxygen mildly dyspneic but in no acute distress, not complaining of pain HEENT exam normal Neck veins not distended Chest reveals decreased breath sounds, mild to moderate wheezing, scattered rhonchi Heart reveals regular rhythm and no murmurs Extremities right leg externally rotated, mild peripheral edema with chronic skin changes Labs/Jb Results: Laboratory Tests 10/14 10/14 10/14 1225 1127 0814 Blood Gas pH (7.35 - 7.45 PH) 7.33 L pCO2 (35 - 45 TORR) 61 *H pO2 (80 - 100 TORR) 101 H HCO3 (21 - 28 MEQ/L) 31 H ABG O2 Sat (Measured) (>96.0 %) 96.0 Carboxyhemoglobin (1.5 - 5.0 %) 1.7 O2 Concentration % 75% O2 Delivery Method [id number] Chemistry Sodium (137 - 145 mmol/L) 141 Potassium (3.5 - 5.1 mmol/L) 3.9 Chloride (98 - 107 mmol/L) 96 L Carbon Dioxide (22 - 30 mmol/L) 37 H Anion Gap (5 - 16) 8 BUN (7 - 17 mg/dL) 26 H Creatinine (0.5 - 1.0 mg/dL) 0.8 Estimated GFR (>60 ml/min) > 60 BUN/Creatinine Ratio (7 - 25 %) 32.5 H Glucose (65 - 99 mg/dL) 121 H Calcium (8.4 - 10.2 mg/dL) 9.5 Total Bilirubin (0.2 - 1.3 mg/dL) 0.6 AST (14 - 36 U/L) 26 ALT (9 - 52 U/L) 51 Alkaline Phosphatase (<127 U/L) 112 Troponin I (< 0.11 ng/ml) 0.18 *H Smt-N-Scjwmrdnjoz Pept (<125 pg/mL) 4040 H Total Protein (6.3 - 8.2 g/dL) 6.4 Albumin (3.5 - 5.0 g/dL) 3.8 Globulin (1.9 - 4.2 gm/dL) 2.6 Albumin/Globulin Ratio (1.1 - 2.2 %) 1.5 Miscellaneous Phlebotomy Draw Site RIGHT RADIAL 10/14 0630 Coagulation PT (9.4 - 12.5 SEC) 10.2 INR (0.90 - 1.19) 0.97 Hematology CBC w Diff NO MAN DIFF REQ WBC (4.8 - 10.8 /CUMM) 9.4 RBC (4.20 - 5.40 /CUMM) 4.51 Hgb (12.0 - 16.0 G/DL) 14.2 Hct (37 - 47 %) 44.8 MCV (81.0 - 99.0 FL) 99.5 H MCH (27.0 - 31.0 PG) 31.6 H RDW (11.5 - 14.5 %) 15.5 H Plt Count (130 - 400 /CUMM) 172 MPV (7.4 - 10.4 FL) 8.9 Gran % (42.2 - 75.2 %) 65.9 Lymphocytes % (20.5 - 51.1 %) 26.1 Monocytes % (1.7 - 9.3 %) 5.7 Eosinophils % (0 - 5 %) 2.0 Basophils % (0.0 - 2.0 %) 0.3 Absolute Granulocytes (1.4 - 6.5 /CUMM) 6.2 Absolute Lymphocytes (1.2 - 3.4 /CUMM) 2.5 Absolute Monocytes (0.10 - 0.60 /CUMM) 0.5 Absolute Eosinophils (0.0 - 0.7 /CUMM) 0.2 Absolute Basophils (0.0 - 0.2 /CUMM) 0 PUBS MCHC (33.0 - 37.0 G/DL) 31.7 L Diagnostic Data EKG Results ST 119, LVH, LAD, RBBB CXR Results PATIENT: MARIA DEL CARMEN CAMILO PRESENT AGE: 86 PATIENT ACCOUNT NO: [id number] : 30 LOCATION: [facility] ORDERING PHYSICIAN: ASHLEY CULLEN MD SERVICE DATE: 10/14/16 EXAM TYPE: RAD - XRY-PORTABLE CHEST XRAY EXAMINATION: XR PORTABLE CHEST CLINICAL INFORMATION: Hypoxia/dyspnea. COMPARISON: Chest x-ray 06/22/2016. TECHNIQUE: Portable frontal view of the chest was obtained. FINDINGS: New small bilateral pleural effusions with adjacent basilar airspace opacities. Interstitium is slightly more prominent, particularly at the bases with findings suggesting mild interstitial pulmonary edema. There is no pneumothorax. Cardiac silhouette size is stable. There are no acute osseous findings. IMPRESSION: Small bilateral pleural effusions and mild interstitial pulmonary edema. There are bibasilar airspace opacities. DICTATED BY: ATIYA READ MD DATE/TIME DICTATED:10/14/16709 GREEN PIPEFITTER:LANRE DATE/TIME TRANSCRIBED:10/14/16709 CONFIDENTIAL, DO NOT COPY WITHOUT APPROPRIATE AUTHORIZATION. Assessment/Plan Assessment/Plan This unfortunate 86-year-old female with end-stage pulmonary disease has a right hip fracture. She has a mildly elevated troponin probably demand ischemia. There is no evidence of type I acute myocardial infarction. There is some increased interstitial markings and pleural effusions consistent with mild congestive heart failure. I recommend some IV Lasix which might help her breathing somewhat. We will of course do serial EKGs and enzymes. An echocardiogram will be useful. She is clearly not a candidate at the current time for surgical repair and this may in fact not be feasible mainly on the basis of her pulmonary disease, but this obviously should be discussed with the patient and family after the initial evaluation is completed. Consult Acknowledgment - Thank you for your consult request.
--- NOTE | 2016-10-14 18:07 | Cons- Orthopedic ---
General Information and HPI Consulting Request Date of Consult: 10/14/16 Requested By: SHIV LONG,LAUREN Keen Reason for Consult: subcapital fracture right hip History of Present Illness: patient admitted after mechanical fall suffered a displaced right subcapital hip fracture. has severe endstage COPD. Allergies/Medications Allergies: Coded Allergies: Penicillins (Severe, HIVES, RASH 06/22/16) Uncoded Allergies: POLLENS (UNKNOWN 04/08/14) Home Med List: Acetaminophen (Tylenol Extra Strength) 500 MG TABLET 2 TAB PO BID PAIN ( Reported) Albuterol Sulfate (Proventil Hfa) 90 MCG HFA.AER.AD 2 PUF INH Q4 PRN SOB ( Reported) Alprazolam 0.25 MG TABLET 2 TAB PO TID SLEEP (Reported) Brimonidine Tartrate (Alphagan P) (Unknown Strength) DROPS 1 DROP OPH BID GLAUCOMA - BOTH EYES (Reported) Dorzolamide HCl 2 % DROPS 1 GTT OPH BID GLAUCOMA - BOTH EYES (Reported) Furosemide 20 MG TABLET 1 TAB PO QAM EDEMA (Reported) please take Furosemide only when there is an increase in body weight. Latanoprost (Xalatan) 2.5 ML DROPS 1 GTT OPH 1900 GLAUCOMA (Reported) BOTH EYES Mometasone Furoate (Nasonex) 50 MCG SPRAY.PUMP 1 SPRAY NASB DAILY NEEDED NASAL CONGESTION (Reported) Mometasone/Formoterol (Dulera 100 Mcg/5 Mcg Inhaler) 100 MCG-5 MCG/ACTUATION HFA.AER.AD 2 PUF INH BID COPD (Reported) Omeprazole 40 MG CAPSULE.DR 1 CAP PO DAILY AC HEARTBURN (Reported) Prednisone 5 MG TABLET 1 TAB PO DAILY pain Please take 20 mg(4 tabs) on 06/28,06/29, 10 mg (2 tab) on 06/30,07/01,07/02,07/03/07/04. take 5mg after 07/04. 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 yes Exam & Diagnostic Data Vital Signs and I&O Vital Signs Date Time Temp Pulse Resp B/P B/P Pulse O2 O2 Flow FiO2 Mean Ox Delivery Rate 10/14 1744 97 Nasal 75% Cannula 10/14 1619 Nasal 75% Cannula 10/14 1550 95 Nasal 75% Cannula /08 1518 97.1 110 20 110/66 95 06/08 1246 97 Nasal 75% Cannula /08 1200 95 Nasal 75% Cannula /08 1159 98.1 109 20 126/56 95 Nasal 75% Cannula /08 1137 97.4 /08 1000 97.4 114 24 135/88 95 Nasal 10L Cannula /08 0815 95 Nasal 75% Cannula /08 0806 96.4 116 24 147/65 98 Non ReBreather /08 0631 95.3 122 26 188/85 89 Nasal 2.0L Cannula Intake & Output /08 1600 06/08 0800 06/08 0000 06/07 1600 06/07 0800 06/07 0000 Intake Total Output Total Balance Patient 116 lb Weight Physical Exam Extremities: no edema, injury present Imaging Results: right displaced subcapital fracture Assessment/Plan Assessment/Plan patient currently not a candidate for surgery due to end stage COPD currently on 65%O2.plan will observe Consult Acknowledgment - Thank you for your consult request. Attending MD Review Statement Attending Statement Attending MD Statement: examined this patient
[2016-10-15 00:21] VITALS: BP 128/68
--- NOTE | 2016-10-15 02:43 | NUR ---
LATE ENTRY CRITICAL VALUE -TROPONIN 0.31 AT 0231. PT DENIES CP. MD RUBY AWARE, WILL RECHECK TROP AND EKG AT 0700.
--- NOTE | 2016-10-15 06:12 | NUR ---
PT ONLY PUTTING SMALL AMOUNT OF URINE IN TRIMBLE. MD RUBY MADE AWARE. IV FLUIDS STARTED AT 50 ML /H ORDERED.WILL CONTINUE TO MONITOR.
--- NOTE | 2016-10-15 07:01 | PN- Housestaff ---
Subjective Follow-up For: Right hip fracture Acute hypoxic/hypercarbic respiratoryu failure End-stage COPD/ Elevated troponins Tele-Events Since Last Visit: NSR HR 80-90's No events Subjective: Patient seen and examined. She is seen lying upright in bed resting comfortably. She appears to be in mild discomfort and respiratory distress. She admits that her breathing feels worse despite the high flow oxygen. Her hip pain is also "very bad". She admits that she feels terrible. Otherwise she denies any fever, chills, chest pain/discomfort, cough, nausea, vomiting, diarrhea. No overnight events reported. Review of Systems Constitutional: Reports: see HPI. Objective Last 24 Hrs of Vital Signs/I&O Vital Signs Date Time Temp Pulse Resp B/P B/P Pulse O2 O2 Flow FiO2 Mean Ox Delivery Rate 10/15 1000 97.5 94 24 160/80 94 Nasal Cannula 10/15 0837 93 Nasal 60% Cannula 10/15 0152 95 Nasal 60% Cannula 10/15 0021 98.8 84 20 128/68 94 Nasal Cannula 10/15 0000 60% 10/14 2159 94 Nasal 60% Cannula 10/14 1924 94 Nasal 65% Cannula 10/14 1744 97 Nasal 75% Cannula 10/14 1619 Nasal 75% Cannula 10/14 1550 95 Nasal 75% Cannula 10/14 1518 97.1 110 20 110/66 95 Intake & Output 10/15 1600 10/15 0800 06 0000 Intake Total 120 120 Output Total 100 200 Balance 20 -80 Intake, Oral 120 120 Output, Urine 100 200 Physical Exam General Appearance: Alert, Oriented X3, Cooperative, Mild Distress Other Physical Findings: General- well developed, thin elderly woman in mild distress HEENT- NCAT, EOMI, PERRL, anicteric sclera, high flow nasal cannula in place Chest- S1, S2 w/o m/g/r Lung- Diminished airflow bilaterally with mild wheezing/rhonchi Abdomen- Soft, nontender, nondistended, bowel sounds intact Neuro- Awake and alert, oriented to person/placetime, CN II - XII grossly Ext- normal pulses, no cyanosis/clubbing/edema Current Medications: Current Medications Sig/Juan Carlos Start time Last Medication Dose Route Stop Time Status Admin Acetaminophen 325 MG .STK-MED ONE 10/15 109 DC PO 06/09 0111 Acetaminophen 325 MG Q6 PRN 10/14 1115 AC 10/14 PO 1137 Albuterol Sulfate 3 ML Q4P PRN 10/14 1630 AC INH Albuterol Sulfate 2 PUF Q4P PRN 10/14 1400 AC 10/15 INH 0425 Alprazolam 0.5 MG TID 10/14 1600 AC 10/15 PO 10/21 1559 0848 Brimonidine Tartrate 1 GTT BID 10/14 2200 AC 10/15 OPH 0849 Dorzolamide HCl 1 GTT BID 10/14 2200 AC 10/15 OPH 0848 Enoxaparin Sodium 40 MG DAILY 10/14 1105 AC 10/15 SC 0849 Furosemide 40 MG DAILY 10/15 1000 DC IV PUSH Furosemide 20 MG DAILY 10/15 1000 AC 10/15 IV PUSH 0849 Ketorolac 15 MG Q6P PRN 10/14 1115 AC 10/15 Tromethamine IV 0428 Latanoprost 1 GTT 1900 10/14 1900 AC 10/14 OPH 2051 Methylprednisolone 40 MG Q8 10/14 1400 AC 10/15 IV 0428 Morphine Sulfate 2 MG Q4P PRN 10/14 1400 AC 10/15 IV 0848 Oxycodone HCl 5 MG Q6 PRN 10/14 1115 AC 10/15 PO 0117 Sodium Chloride 1,000 ML Q13H 10/15 0345 AC 10/15 IV 0429 Tiotropium [place] 1 PUF DAILY 10/14 1357 AC 10/15 INH 0849 Last 24 Hrs of Lab/Jb Results Last 24 Hrs of Labs/Mics: Laboratory Tests 10/15/16 0710: Anion Gap 9, Estimated GFR 47 L, BUN/Creatinine Ratio 40.9 H, Troponin I 0.27 *H, CBC w Diff NO MAN DIFF REQ, RBC 3.77 L, MCV 98.3, MCH 31.9 H, RDW 15.4 H, MPV 9.5, Gran % 88.7 H, Lymphocytes % 5.3 L, Monocytes % 6.0, Eosinophils % 0, Basophils % 0 L, Absolute Granulocytes 7.7 H, Absolute Lymphocytes 0.5 L, Absolute Monocytes 0.5, Absolute Eosinophils 0, Absolute Basophils 0, PUBS MCHC 32.4 L 10/15/16 0700: Troponin I Cancelled 10/15/16 0100: Troponin I 0.31 *H 10/14/16 1855: Troponin I 0.28 *H Assessment/Plan Assessment: Patient is currently not a surgical candidate due to her current clinical status. Patient is to changed to comfort meaures due to her poor prognosis. She remain in mild/moderate respiratory distress despite high flow oxygen. Problem List: -Right sided hip fracture -Acute Hypoxic/Hypercarbic respiratory failure -Chronic respiratory failure -Emphysema -Elevated troponins, likely demand ischemia Plan: -Discontinue telemetry per corporate travel consultant -Supplemental oxygen, taper as tolerated, goal > 92% -TRC with albuterol/ipratropium schedule -High flow oxygen -No antibiotics -Bansal catheter -Aminophylline/Spiriva -Alprazolam 0.5mg PO TID PRN -Lasix 20mg IV Daily only while eating/drinking -Solumedrol 40mg IV Daily -Pain control with IV morphine -Pulm Consult, following -Ortho consult, following -Cardio consult, following -Regular diet -DVT PPx -Comfort measures Problem List: 1. Hip fracture, right 2. COPD (chronic obstructive pulmonary disease) Pain Ratin Pain Location: Right hip Pain Goal: Remain pain free Pain Plan: See assessment Tomorrow's Labs & Rationales: None
[2016-10-15 08:26] LABS: ABSOLUTE BASOPHIL COUNT 0 /CUMM (0.0-0.2); ABSOLUTE EOSINOPHIL COUNT 0 /CUMM (0.0-0.7); ABSOLUTE GRANULOCYTE CT 7.7 /CUMM (1.4-6.5); ABSOLUTE MONOCYTE COUNT 0.5 /CUMM (0.10-0.60); EOSINOPHIL % 0 % (0-5); MEAN CORPUSCULAR HGB 31.9 PG (27.0-31.0); RED BLOOD CELL CT 3.77 /CUMM (4.20-5.40)
[2016-10-15 08:43] LABS: ABSOLUTE LYMPH COUNT 0.5 /CUMM (1.2-3.4); BASOPHIL % 0 % (0.0-2.0); MEAN CORPUSCULAR HGB CONC 32.4 G/DL (33.0-37.0); MEAN CORPUSCULAR VOLUME 98.3 FL (81.0-99.0); MEAN PLATELET VOLUME 9.5 FL (7.4-10.4); PLATELET COUNT 104 /CUMM (130-400); RBC DISTRIBUTION WIDTH 15.4 % (11.5-14.5); WHITE BLOOD CELL COUNT 8.6 /CUMM (4.8-10.8)
[2016-10-15 09:02] LABS: GRANULOCYTE % 88.7 % (42.2-75.2)
[2016-10-15 10:00] VITALS: BP 160/80
--- NOTE | 2016-10-15 10:11 | PN- Cardiology ---
Subjective Subjective: Minna is still having some pain from her hip fracture. She remains on high flow oxygen. The troponin is dropping. The peak was 0.31. Objective Vital Signs and I&Os Vital Signs Date Time Temp Pulse Resp B/P B/P Pulse O2 O2 Flow FiO2 Mean Ox Delivery Rate 10/15 0837 93 Nasal 60% Cannula 10/15 0152 95 Nasal 60% Cannula 10/15 0021 98.8 84 20 128/68 94 Nasal Cannula 10/15 0000 60% 10/14 2159 94 Nasal 60% Cannula 10/14 1924 94 Nasal 65% Cannula 10/14 1744 97 Nasal 75% Cannula 10/14 1619 Nasal 75% Cannula 10/14 1550 95 Nasal 75% Cannula 10/14 1518 97.1 110 20 110/66 95 10/14 1246 97 Nasal 75% Cannula 10/14 1200 95 Nasal 75% Cannula 10/14 1159 98.1 109 20 126/56 95 Nasal 75% Cannula 10/14 1137 97.4 Intake & Output 10/15 1600 10/15 0800 10/15 0000 10/14 1600 10/14 0800 10/14 0000 Intake Total 120 120 Output Total 100 200 Balance 20 -80 Intake, Oral 120 120 Output, Urine 100 200 Patient 116 lb Weight Physical Exam: She is in mild respiratory distress Chest reduced breath sounds CV regular, no murmurs, soft HS. Current Medications: Current Medications Sig/Juan Carlos Start time Last Medication Dose Route Stop Time Status Admin Acetaminophen 325 MG .STK-MED ONE 10/15 0110 DC PO 10/15 0111 Acetaminophen 0 .STK-MED ONE 10/14 1135 DC PO Acetaminophen 325 MG Q6 PRN 10/14 1115 AC 10/14 PO 1137 Albuterol Sulfate 3 ML Q4P PRN 10/14 1630 AC INH Albuterol Sulfate 2 PUF Q4P PRN 10/14 1400 AC 10/15 INH 0425 Alprazolam 0.5 MG TID 10/14 1600 AC 10/15 PO 10/21 1559 0848 Brimonidine Tartrate 1 GTT BID 10/14 2200 AC 10/15 OPH 0849 Dorzolamide HCl 1 GTT BID 10/14 2200 AC 10/15 OPH 0848 Enoxaparin Sodium 40 MG DAILY 10/14 1105 AC 10/15 SC 0849 Furosemide 40 MG DAILY 10/15 1000 DC IV PUSH Furosemide 20 MG DAILY 10/15 1000 AC 10/15 IV PUSH 0849 Furosemide 40 MG ONCE ONE 10/14 1145 DC 10/14 IV PUSH 10/14 1146 1146 Furosemide 0 .STK-MED ONE 10/14 1144 DC IV Ketorolac 15 MG Q6P PRN 10/14 1115 AC 10/15 Tromethamine IV 0428 Latanoprost 1 GTT 1900 10/14 1900 AC 10/14 OPH 2051 Methylprednisolone 40 MG Q8 10/14 1400 AC 10/15 IV 0428 Methylprednisolone 0 .STK-MED ONE 10/14 1353 DC .ROUTE Morphine Sulfate 2 MG Q4P PRN 10/14 1400 AC 10/15 IV 0848 Morphine Sulfate 0 .STK-MED ONE 10/14 1354 DC .ROUTE Morphine Sulfate 2 MG ONCE ONE 10/14 1345 DC 10/14 IV 10/14 1346 1351 Oxycodone HCl 0 .STK-MED ONE 10/14 1135 DC PO Oxycodone HCl 5 MG Q6 PRN 10/14 1115 AC 10/15 PO 0117 Sodium Chloride 1,000 ML Q13H 10/15 0345 AC 10/15 IV 0429 Tiotropium [place] 1 PUF DAILY 10/14 1357 AC 10/15 INH 0849 Results Last 48 Hrs of Labs/Mics: Laboratory Tests 10/15/16 0710: Anion Gap 9, Estimated GFR 47 L, BUN/Creatinine Ratio 40.9 H, Troponin I 0.27 *H, CBC w Diff NO MAN DIFF REQ, RBC 3.77 L, MCV 98.3, MCH 31.9 H, RDW 15.4 H, MPV 9.5, Gran % 88.7 H, Lymphocytes % 5.3 L, Monocytes % 6.0, Eosinophils % 0, Basophils % 0 L, Absolute Granulocytes 7.7 H, Absolute Lymphocytes 0.5 L, Absolute Monocytes 0.5, Absolute Eosinophils 0, Absolute Basophils 0, PUBS MCHC 32.4 L 10/15/16 0700: Troponin I Cancelled 10/15/16 0100: Troponin I 0.31 *H 10/14/16 1855: Troponin I 0.28 *H 10/14/16 1225: pH 7.33 L, pCO2 61 *H, pO2 101 H, HCO3 31 H, ABG O2 Sat (Measured) 96.0, Carboxyhemoglobin 1.7, O2 Concentration % 75%, O2 Delivery Method [id number], Phlebotomy Draw Site RIGHT RADIAL 10/14/16 1127: Troponin I 0.18 *H 10/14/16 0814: Anion Gap 8, Estimated GFR > 60, BUN/Creatinine Ratio 32.5 H, Glucose 121 H, Calcium 9.5, Total Bilirubin 0.6, AST 26, ALT 51, Alkaline Phosphatase 112, Pro- B-Natriuretic Pept 4040 H, Total Protein 6.4, Albumin 3.8, Globulin 2.6, Albumin/Globulin Ratio 1.5 10/14/16 0630: PT 10.2, INR 0.97, CBC w Diff NO MAN DIFF REQ, RBC 4.51, MCV 99.5 H, MCH 31.6 H, RDW 15.5 H, MPV 8.9, Gran % 65.9, Lymphocytes % 26.1, Monocytes % 5.7, Eosinophils % 2.0, Basophils % 0.3, Absolute Granulocytes 6.2, Absolute Lymphocytes 2.5, Absolute Monocytes 0.5, Absolute Eosinophils 0.2, Absolute Basophils 0, PUBS MCHC 31.7 L Assessment/Plan Assessment/Plan The patient remains in chronic respiratory distress. She is also having some pain from her hip fracture. She is on high flow oxygen and barely maintaining saturations. According to Dr. Seals she may be made comfort measures and/or hospice soon. He is going to have further discussions with the family. Based on this I think telemetry can be discontinued at this time as we are not going to do anything aggressive with her from a cardiac standpoint. Continue telemetry? No
--- NOTE | 2016-10-15 10:20 | PN- Cardiology ---
Subjective Subjective: The patient is uncomfortable from pain and also due to chronic respiratory distress. She is still on high flow oxygen. Her enzymes remained elevated, the last troponin was 0.27 and decreasing slowly. There have been no significant arrhythmias on the monitor. Objective Vital Signs and I&Os Vital Signs Date Time Temp Pulse Resp B/P B/P Pulse O2 O2 Flow FiO2 Mean Ox Delivery Rate 10/15 0837 93 Nasal 60% Cannula 10/15 0152 95 Nasal 60% Cannula 10/15 0021 98.8 84 20 128/68 94 Nasal Cannula 10/15 0000 60% 10/14 2159 94 Nasal 60% Cannula 10/14 1924 94 Nasal 65% Cannula 10/14 1744 97 Nasal 75% Cannula 10/14 1619 Nasal 75% Cannula 10/14 1550 95 Nasal 75% Cannula 10/14 1518 97.1 110 20 110/66 95 08 1246 97 Nasal 75% Cannula 10/14 1200 95 Nasal 75% Cannula 10/14 1159 98.1 109 20 126/56 95 Nasal 75% Cannula 10/14 1137 97.4 Intake & Output 10/15 1600 10/15 0800 10/15 0000 10/14 1600 10/14 0800 10/14 0000 Intake Total 120 120 Output Total 100 200 Balance 20 -80 Intake, Oral 120 120 Output, Urine 100 200 Patient 116 lb Weight Physical Exam: She is somewhat uncomfortable HEENT exam unremarkable Chest markedly decreased breath sounds Heart regular mildly tachycardic no murmurs Current Medications: Current Medications Sig/Juan Carlos Start time Last Medication Dose Route Stop Time Status Admin Acetaminophen 325 MG .STK-MED ONE 10/15 0110 DC PO 10/15 0111 Acetaminophen 0 .STK-MED ONE 10/14 1135 DC PO Acetaminophen 325 MG Q6 PRN 10/14 1115 AC 10/14 PO 1137 Albuterol Sulfate 3 ML Q4P PRN 10/14 1630 AC INH Albuterol Sulfate 2 PUF Q4P PRN 10/14 1400 AC 10/15 INH 0425 Alprazolam 0.5 MG TID 10/14 1600 AC 10/15 PO 10/21 1559 0848 Brimonidine Tartrate 1 GTT BID 10/14 2200 AC 10/15 OPH 0849 Dorzolamide HCl 1 GTT BID 10/14 2200 AC 10/15 OPH 0848 Enoxaparin Sodium 40 MG DAILY 10/14 1105 AC 10/15 SC 0849 Furosemide 40 MG DAILY 10/15 1000 DC IV PUSH Furosemide 20 MG DAILY 10/15 1000 AC 10/15 IV PUSH 0849 Furosemide 40 MG ONCE ONE 10/14 1145 DC 10/14 IV PUSH 10/14 1146 1146 Furosemide 0 .STK-MED ONE 10/14 1144 DC IV Ketorolac 15 MG Q6P PRN 10/14 1115 AC 10/15 Tromethamine IV 0428 Latanoprost 1 GTT 1900 10/14 1900 AC 10/14 OPH 2051 Methylprednisolone 40 MG Q8 10/14 1400 AC 10/15 IV 0428 Methylprednisolone 0 .STK-MED ONE 10/14 1353 DC .ROUTE Morphine Sulfate 2 MG Q4P PRN 10/14 1400 AC 10/15 IV 0848 Morphine Sulfate 0 .STK-MED ONE 10/14 1354 DC .ROUTE Morphine Sulfate 2 MG ONCE ONE 10/14 1345 DC 08 IV 10/14 1346 1351 Oxycodone HCl 0 .STK-MED ONE 10/14 1135 DC PO Oxycodone HCl 5 MG Q6 PRN 10/14 1115 AC 10/15 PO 0117 Sodium Chloride 1,000 ML Q13H 10/15 0345 10/15 IV 0429 Tiotropium [place] 1 PUF DAILY 10/14 1357 AC 10/15 INH 0849 Results Last 48 Hrs of Labs/Mics: Laboratory Tests 10/15/16 0710: Anion Gap 9, Estimated GFR 47 L, BUN/Creatinine Ratio 40.9 H, Troponin I 0.27 *H, CBC w Diff NO MAN DIFF REQ, RBC 3.77 L, MCV 98.3, MCH 31.9 H, RDW 15.4 H, MPV 9.5, Gran % 88.7 H, Lymphocytes % 5.3 L, Monocytes % 6.0, Eosinophils % 0, Basophils % 0 L, Absolute Granulocytes 7.7 H, Absolute Lymphocytes 0.5 L, Absolute Monocytes 0.5, Absolute Eosinophils 0, Absolute Basophils 0, PUBS MCHC 32.4 L 10/15/16 0700: Troponin I Cancelled 10/15/16 0100: Troponin I 0.31 *H 10/14/16 1855: Troponin I 0.28 *H 10/14/16 1225: pH 7.33 L, pCO2 61 *H, pO2 101 H, HCO3 31 H, ABG O2 Sat (Measured) 96.0, Carboxyhemoglobin 1.7, O2 Concentration % 75%, O2 Delivery Method [id number], Phlebotomy Draw Site RIGHT RADIAL 10/14/16 1127: Troponin I 0.18 *H 10/14/16 0814: Anion Gap 8, Estimated GFR > 60, BUN/Creatinine Ratio 32.5 H, Glucose 121 H, Calcium 9.5, Total Bilirubin 0.6, AST 26, ALT 51, Alkaline Phosphatase 112, Pro- B-Natriuretic Pept 4040 H, Total Protein 6.4, Albumin 3.8, Globulin 2.6, Albumin/Globulin Ratio 1.5 10/14/16 0630: PT 10.2, INR 0.97, CBC w Diff NO MAN DIFF REQ, RBC 4.51, MCV 99.5 H, MCH 31.6 H, RDW 15.5 H, MPV 8.9, Gran % 65.9, Lymphocytes % 26.1, Monocytes % 5.7, Eosinophils % 2.0, Basophils % 0.3, Absolute Granulocytes 6.2, Absolute Lymphocytes 2.5, Absolute Monocytes 0.5, Absolute Eosinophils 0.2, Absolute Basophils 0, PUBS MCHC 31.7 L Assessment/Plan Assessment/Plan The patient remains in chronic respiratory distress. She is also having some pain from her hip fracture. She is on high flow oxygen and barely maintaining saturations. According to Dr. Seals she may be made comfort measures and/or hospice soon. He is going to have further discussions with the family. Based on this I think telemetry can be discontinued at this time as we are not going to do anything aggressive with her from a cardiac standpoint. Continue telemetry? No
--- NOTE | 2016-10-15 13:53 | PN- Pulmonary ---
Subjective HPI/Critical Care Issues: The patient is uncomfortable from pain and also due to chronic respiratory distress. She is still on high flow oxygen. Her enzymes remained elevated, the last troponin was 0.27 and decreasing slowly. There have been no significant arrhythmias on the monitor. Objective Current Medications: Current Medications Sig/Juan Carlos Start time Last Medication Dose Route Stop Time Status Admin Acetaminophen 325 MG .STK-MED ONE 10/15 0110 DC PO 10/15 0111 Acetaminophen 325 MG Q6 PRN 10/14 1115 AC 10/14 PO 1137 Albuterol Sulfate 3 ML Q4P PRN 10/14 1630 AC INH Albuterol Sulfate 2 PUF Q4P PRN 10/14 1400 AC 10/15 INH 0425 Alprazolam 0.5 MG TID 10/14 1600 AC 10/15 PO 10/21 1559 0848 Brimonidine Tartrate 1 GTT BID 10/14 2200 AC 10/15 OPH 0849 Dorzolamide HCl 1 GTT BID 10/14 2200 AC 10/15 OPH 0848 Enoxaparin Sodium 40 MG DAILY 10/14 1105 AC 10/15 SC 0849 Furosemide 40 MG DAILY 10/15 1000 DC IV PUSH Furosemide 20 MG DAILY 10/15 1000 AC 10/15 IV PUSH 0849 Ketorolac 15 MG Q6P PRN 10/14 1115 AC 10/15 Tromethamine IV 0428 Latanoprost 1 GTT 1900 10/14 1900 AC 10/14 OPH 2051 Methylprednisolone 40 MG Q8 / 1400 AC 10/15 IV 0428 Methylprednisolone 0 .STK-MED ONE 10/14 1353 DC .ROUTE Morphine Sulfate 2 MG Q4P PRN 10/14 1400 AC 10/15 IV 0848 Morphine Sulfate 0 .STK-MED ONE 10/14 1354 DC .ROUTE Oxycodone HCl 5 MG Q6 PRN 10/14 1115 AC 10/15 PO 0117 Sodium Chloride 1,000 ML Q13H 10/15 0345 AC 10/15 IV 0429 Tiotropium [place] 1 PUF DAILY 10/14 1357 AC 10/15 INH 0849 Vital Signs & I&O Last 24 Hrs of Vitals and I&O: Vital Signs Date Time Temp Pulse Resp B/P B/P Pulse O2 O2 Flow FiO2 Mean Ox Delivery Rate 10/15 1000 97.5 94 24 160/80 94 Nasal Cannula 10/15 0837 93 Nasal 60% Cannula 10/15 0152 95 Nasal 60% Cannula 10/15 0021 98.8 84 20 128/68 94 Nasal Cannula 10/15 0000 60% 10/14 2159 94 Nasal 60% Cannula 10/14 1924 94 Nasal 65% Cannula 10/14 1744 97 Nasal 75% Cannula 10/14 1619 Nasal 75% Cannula 10/14 1550 95 Nasal 75% Cannula 10/14 1518 97.1 110 20 110/66 95 Intake & Output 10/15 1600 10/15 0800 10/15 0000 Intake Total 120 120 Output Total 100 200 Balance 20 -80 Intake, Oral 120 120 Output, Urine 100 200 Impression/Plan Impression/Plan Impression/Plan: Physical Exam General Appearance Alert, Oriented X3, Moderate Distress, not able to speak in full sentences Skin big bruise over left lower leg Skin Temp/Moisture Exam: Warm/Dry Sepsis Skin Exam (color): Normal for Ethnicity HEENT Atraumatic, PERRLA, EOMI, high flow oxygen Neck Supple, No JVD Lymphatic Cervical nl Cardiovascular Normal S1, Normal S2, tachycardia Lungs bilateral wheezes and ronchi Abdomen Normal Bowel Sounds, Soft Neurological Normal Tone, Sensation Intact, Cranial Nerves 3-12 NL Extremities right leg shortened and adducted This is an elderly lady with very severe COPD with preterminal emphysema was on 5-6 L of oxygen at rest, who has significant shortness of breath at rest, poor performance status now here with hip fracture with a fall Issues * Acute hypoxic and hypercarbic resp failure due to advancing terminal lung disease * Acute NSTMI due to terminal lung disease with sig hypoxia despite high oxygen supp at home * Pulm edema with CHF prob diastolic and systolic heart failure * Severe low back pain due to severe spinal stenosis and hip pain * Very severe emphysema with very poor pulmonary reserve with shortness of breath on rest, no obvious clinical exacerbation of COPD but patient has been on long-term steroids hence immunosuppressed * Chronic cor pulmonale * CKD * 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 artery stenosis with atherosclerosis * A new lung nodule which could be a slow-growing malignancy which has not been present at 2010 in a preterminal COPD patient at this time it's not clinically relevant * Degenerative joint disease with chronic arthritis on tramadol * Hypertension, hyperlipidemia, atherosclerosis, GERD and vitamin D deficiency * Chronic choledocholithiasis, previous appendectomy history, with recent biliary infection not clinically significant at this time in stable * Worsening performance status REC Discussed with patient before in my office and in the ed COnt morphine She is terminally ill and will not tolerate any surg. She does not want to be intubated and she wishes no further agg care She wishes to be comfortable She wishes symptomatic care and if worse in patient hospice Sons are aware as this as this was the plan as out pt Rx with morphine liberally if she gets worse inpatient hospice with complete comfort care only Nebs atc, steroids and lasix for now ok to dc tele prog very poor DNR and DnI if worse comfort and if worse in patient hospice for now
--- NOTE | 2016-10-15 14:12 | Event Note ---
Event Note Event Note: Still in pain wishes to be more comfortable Fatigue Plan Discussed with the patient and she wishes to be comfortable WIll increase morphine to 2-4 q1hr prn Pt can be made comfort care only She wishes to inform us about inpatient hospice when she makes that decision DC tele Cont 40 mg steroids nebs atc morphine, nebs, inhalers, xanax or ativan for now Will discuss with sons later
[2016-10-15 15:30] VITALS: BP 132/80
[2016-10-15 22:42] VITALS: BP 120/70
--- NOTE | 2016-10-16 07:39 | PN- Housestaff ---
Subjective Follow-up For: Right hip fracture Acute hypoxic/hypercarbic respiratoryu failure End-stage COPD/ Elevated troponins Subjective: Ms Lagos was seen and examined this morning. Resting comfortably in bed. Able to tolerate intake well and is currently enjoying her breakfast. She denies any issues overnight. Currentlystates that her pain is very well controlled. She denies any fever, chills, nausea, vomiting. Continues to be on supplemental oxygen via high flow. Patient states this helps. Review of Systems Constitutional: Reports: see HPI. Objective Last 24 Hrs of Vital Signs/I&O Vital Signs Date Time Temp Pulse Resp B/P B/P Pulse O2 O2 Flow FiO2 Mean Ox Delivery Rate 10/16 0000 96 Nasal 60% Cannula 10/15 2242 98.2 71 18 120/70 95 Nasal Cannula 10/15 2233 97 Nasal 60% Cannula 10/15 1937 96 Nasal 60% Cannula 10/15 1639 97 Nasal 60% Cannula 10/15 1600 97 Nasal 60% Cannula 10/15 1530 98.3 97 16 132/80 96 Nasal 60% Cannula 10/15 1409 94 Nasal 60% Cannula 10/15 1000 97.5 94 24 160/80 94 Nasal Cannula 10/15 0837 93 Nasal 60% Cannula 10/15 0800 95 Nasal 60% Cannula Intake & Output 10/16 0800 10/16 0000 10/15 1600 Intake Total 480 1220 Output Total 275 150 375 Balance 205 1070 -375 Intake, IV 400 800 Intake, Oral 80 420 Number 0 Bowel Movements Output, Urine 275 150 375 Physical Exam General Appearance: Alert, Oriented X3, On High Flow Oxygen. Skin: No Rashes Cardiovascular: Normal S1, Normal S2 Lungs: Normal Air Movement Abdomen: Normal Bowel Sounds, Soft, No Tenderness Neurological: Normal Speech Extremities: No Edema, Left lower extremity tenderness. Vascular: Normal Pulses Current Medications: Current Medications Sig/Juan Cralos Start time Last Medication Dose Route Stop Time Status Admin Acetaminophen 325 MG Q6 PRN 10/14 1115 AC 10/14 PO 1137 Albuterol Sulfate 3 ML Q4P PRN 10/14 1630 AC 10/16 INH 0752 Albuterol Sulfate 2 PUF Q4P PRN 10/14 1400 AC 10/15 INH 0425 Alprazolam 0.5 MG TID 10/14 1600 AC 10/16 PO 10/21 1559 0827 Brimonidine Tartrate 1 GTT BID 10/14 2200 AC 10/16 OPH 0836 Budesonide/ 2 PUF BID 10/15 2200 AC 06 Formoterol Fumarate INH 1055 Dorzolamide HCl 1 GTT BID 10/14 2200 AC 10/16 OPH 0836 Enoxaparin Sodium 40 MG DAILY 10/14 1105 AC 10/16 SC 0835 Furosemide 20 MG DAILY 10/15 1000 AC 10/16 IV PUSH 0833 Latanoprost 1 GTT 1900 10/14 1900 AC 10/15 OPH 2045 Methylprednisolone 40 MG DAILY 10/16 1000 AC 10/16 IV 0829 Morphine Sulfate 2 MG Q1 NEEDED PRN 10/15 1415 AC 10/16 IV 1055 Oxycodone HCl 5 MG Q6 PRN 10/14 1115 AC 10/15 PO 0117 Sodium Chloride 1,000 ML Q13H 10/15 0345 AC 10/16 IV 0123 Tiotropium [place] 1 PUF DAILY 10/14 1357 AC 10/16 INH 0830 Assessment/Plan Assessment: Patient is currently not a surgical candidate due to her current clinical status. Patient is to changed to comfort meaures due to her poor prognosis. She remain in mild/moderate respiratory distress despite high flow oxygen. Problem List: -Right sided hip fracture -Acute Hypoxic/Hypercarbic respiratory failure -Chronic respiratory failure -Emphysema -Elevated troponins, likely demand ischemia Plan: -Supplemental oxygen, taper as tolerated, goal > 92% -TRC with albuterol/ipratropium schedule -High flow oxygen -No antibiotics -Bansal catheter -Aminophylline/Spiriva -Alprazolam 0.5mg PO TID PRN -Lasix 20mg IV Daily only while eating/drinking -Solumedrol 40mg IV Daily -Pain control with IV morphine -Pulm Consult, following -Ortho consult, following -Cardio consult, following -Regular diet -DVT PPx -Comfort measures Problem List: 1. Hip fracture, right 2. COPD (chronic obstructive pulmonary disease) Pain Ratin Pain Location: No Pain Pain Goal: Remain pain free Pain Plan: See Assessment Tomorrow's Labs & Rationales: No Labs
[2016-10-16 07:43] VITALS: BP 132/78
--- NOTE | 2016-10-16 08:24 | PN- Att Addend ---
Attending Addendum Attending Brief Note Covering attending note. Patient is sitting upright, in mild respiratory distress. Intake & Output 10/16 1600 10/16 0800 10/16 0000 Intake Total 480 1220 Output Total 275 150 Balance 205 1070 Intake, IV 400 800 Intake, Oral 80 420 Number 0 Bowel Movements Output, Urine 275 150 Current Medications Sig/Juan Carlos Start time Last Medication Dose Route Stop Time Status Admin Acetaminophen 325 MG Q6 PRN 10/14 1115 AC 10/14 PO 1137 Albuterol Sulfate 3 ML Q4P PRN 10/14 1630 AC 10/16 INH 0752 Albuterol Sulfate 2 PUF Q4P PRN 10/14 1400 AC 10/15 INH 0425 Alprazolam 0.5 MG TID 10/14 1600 AC 10/15 PO 10/21 1559 2200 Brimonidine Tartrate 1 GTT BID 10/14 2200 AC 10/15 OPH 2113 Budesonide/ 2 PUF BID 10/15 2200 AC Formoterol Fumarate INH Dorzolamide HCl 1 GTT BID 10/14 2200 AC 10/15 OPH 2113 Enoxaparin Sodium 40 MG DAILY 10/14 1105 AC 10/15 SC 0849 Furosemide 20 MG DAILY 10/15 1000 AC 10/15 IV PUSH 0849 Ketorolac 15 MG Q6P PRN 10/14 1115 DC 10/15 Tromethamine IV 0428 Latanoprost 1 GTT 1900 10/14 1900 AC 10/15 OPH 2045 Methylprednisolone 40 MG DAILY 10/16 1000 AC IV Methylprednisolone 40 MG Q8 10/14 1400 DC 10/15 IV 0428 Morphine Sulfate 2 MG Q1 NEEDED PRN 10/15 1415 AC 10/16 IV 0418 Morphine Sulfate 2 MG Q4P PRN 10/14 1400 DC 10/15 IV 0848 Oxycodone HCl 5 MG Q6 PRN 10/14 1115 AC 10/15 PO 0117 Patient Medication 1 ED .STK-MED ONE 10/15 1421 DC Teaching ED 10/15 1422 Sodium Chloride 1,000 ML Q13H 10/15 0345 10/16 IV 0123 Tiotropium [place] 1 PUF DAILY 10/14 1357 AC 10/15 INH 0849 Vital Signs Date Time Temp Pulse Resp B/P B/P Pulse O2 O2 Flow FiO2 Mean Ox Delivery Rate 10/16 0753 99 Nasal 60% Cannula 10/16 0743 97.2 79 20 132/78 100 10/16 0000 96 Nasal 60% Cannula 10/15 2242 98.2 71 18 120/70 95 Nasal Cannula 10/15 2233 97 Nasal 60% Cannula 10/15 1937 96 Nasal 60% Cannula 10/15 1639 97 Nasal 60% Cannula 10/15 1600 97 Nasal 60% Cannula 10/15 1530 98.3 97 16 132/80 96 Nasal 60% Cannula 10/15 1409 94 Nasal 60% Cannula 10/15 1000 97.5 94 24 160/80 94 Nasal Cannula 10/15 0837 93 Nasal 60% Cannula Intake & Output 10/16 1600 10/16 0800 10/16 0000 Intake Total 480 1220 Output Total 275 150 Balance 205 1070 Intake, IV 400 800 Intake, Oral 80 420 Number 0 Bowel Movements Output, Urine 275 150 On examination patient is on oxygen and she is in mild respiratory distress. A little anxious S1-S2 is normal lungs with diminished air entry bilaterally with expiratory wheezing.. Abdomen is soft nontender bowel sounds are present Assessment per wishes of the family and patient patient is on comfort care. On morphine 2-4 mg every hour when necessary also gets medication for anxiety continue with neb treatments as well as oxygen.
[2016-10-16 14:00] VITALS: BP 120/82
[2016-10-16 22:08] VITALS: BP 120/70
[2016-10-17 06:40] VITALS: BP 150/84
--- NOTE | 2016-10-17 08:22 | PN- Housestaff ---
Subjective Follow-up For: Right hip fracture Acute hypoxic/hypercarbic respiratoryu failure End-stage COPD/ Elevated troponins Subjective: Patient seen and examined this morning. She reports feeling worse overall. Dyspnea and pain worsened compared to yesterday. Endorsing poor appetite. Denies any fever, chills, chest discomfort, palpitations, abdominal pain, nausea, vomiting, headache. No events reported overnight. Review of Systems Constitutional: Reports: see HPI. Objective Last 24 Hrs of Vital Signs/I&O Vital Signs Date Time Temp Pulse Resp B/P B/P Pulse O2 O2 Flow FiO2 Mean Ox Delivery Rate 10/17 0640 97.0 73 20 150/84 94 10/17 0044 97 Nasal 55% Cannula 10/16 2225 97 Nasal 60% Cannula 10/16 2208 97.4 73 20 120/70 96 10/16 1600 Nasal 60% Cannula 10/16 1400 97.7 80 19 120/82 93 Intake & Output 10/17 1600 10/17 0800 10/17 0000 Intake Total 400 Output Total 250 200 Balance -250 200 Intake, IV 50 Intake, Oral 350 Output, Urine 250 200 Physical Exam General Appearance: Alert, Oriented X3, Cooperative, No Acute Distress Other Physical Findings: Skin: No Rashes Cardiovascular: Normal S1, Normal S2 Lungs: Normal Air Movement Abdomen: Normal Bowel Sounds, Soft, No Tenderness Neurological: Normal Speech Extremities: No Edema, Left lower extremity tenderness. Vascular: Normal Pulses Current Medications: Current Medications Sig/Juan Carlos Start time Last Medication Dose Route Stop Time Status Admin Acetaminophen 325 MG Q6 PRN 10/14 1115 AC 10/14 PO 1137 Albuterol Sulfate 3 ML Q4P PRN 10/14 1630 AC 10/16 INH 0752 Albuterol Sulfate 2 PUF Q4P PRN 10/14 1400 AC 10/15 INH 0425 Alprazolam 0.5 MG TID 10/14 1600 AC 10/16 PO 10/21 1559 2052 Brimonidine Tartrate 1 GTT Q12H 10/17 0700 AC 10/17 OPH 0700 Brimonidine Tartrate 1 GTT BID 10/14 2200 DC 10/16 OPH 205 Budesonide/ 2 PUF BID 10/15 2200 AC 10/16 Formoterol Fumarate INH 205 Dorzolamide HCl 1 GTT Q12H 10/17 0700 AC 10/17 OPH 0700 Dorzolamide HCl 1 GTT BID 06/08 2200 DC 10/16 OPH 2053 Enoxaparin Sodium 40 MG DAILY 10/14 1105 AC 10/16 SC 0835 Furosemide 20 MG DAILY 10/15 1000 AC 10/16 IV PUSH 0833 Latanoprost 1 GTT 2100 10/17 2100 AC OPH Latanoprost 1 GTT 1900 10/14 1900 DC 10/16 OPH 1918 Methylprednisolone 40 MG DAILY 10/16 1000 AC 10/16 IV 0829 Morphine Sulfate 2 MG Q1 NEEDED PRN 10/15 1415 AC 10/17 IV 0743 Oxycodone HCl 5 MG Q6 PRN 10/14 1115 AC 10/15 PO 0117 Sodium Chloride 1,000 ML Q13H 10/15 0345 DC 10/16 IV 0123 Tiotropium [place] 1 PUF DAILY 10/14 1357 AC 10/16 INH 0830 Assessment/Plan Assessment: Patient is currently not a surgical candidate due to her current clinical status. Patient is to changed to comfort meaures due to her poor prognosis. She remain in mild/moderate respiratory distress despite high flow oxygen. Problem List: -Right sided hip fracture -Acute Hypoxic/Hypercarbic respiratory failure -Chronic respiratory failure -Emphysema -Elevated troponins, likely demand ischemia Plan: -Supplemental oxygen, taper as tolerated, goal > 92% -TRC with albuterol/ipratropium schedule -High flow oxygen -Watch off antibiotics -Bansal catheter -Aminophylline/Spiriva -Alprazolam 0.5mg PO TID PRN -Lasix 20mg IV Daily only while eating/drinking -Solumedrol 40mg IV Daily -Pain control with IV morphine 1mg Q1H -Pulm Consult, following -Ortho consult, following -Cardio consult, following -Regular diet -DVT PPx -Comfort measures Problem List: 1. Hip fracture, right 2. COPD (chronic obstructive pulmonary disease) 3. GERD (gastroesophageal reflux disease) 4. Glaucoma 5. DVT prophylaxis 6. Arthritis 7. HTN (hypertension) Pain Ratin Pain Location: R hip Pain Goal: Remain pain free Pain Plan: Mild pathway Tomorrow's Labs & Rationales: None
--- NOTE | 2016-10-17 11:12 | PN- Att Addend ---
Attending Addendum Attending Brief Note Covering attending note. Patient is struggling very weak difficulty breathing currently on morphine. Intake & Output 10/17 1600 10/17 0800 10/17 0000 Intake Total 100 400 Output Total 250 200 Balance -150 200 Intake, IV 0 50 Intake, Oral 100 350 Number 0 Bowel Movements Output, Urine 250 200 Current Medications Sig/Juan Carlos Start time Last Medication Dose Route Stop Time Status Admin Acetaminophen 325 MG Q6 PRN 10/14 1115 AC 10/14 PO 1137 Albuterol Sulfate 3 ML Q4P PRN 10/14 1630 AC 10/16 INH 0752 Albuterol Sulfate 2 PUF Q4P PRN 10/14 1400 AC 10/15 INH 0425 Alprazolam 0.5 MG TID 10/14 1600 AC 10/17 PO 10/21 1559 0922 Brimonidine Tartrate 1 GTT Q12H 10/17 0700 AC 10/17 OPH 0700 Brimonidine Tartrate 1 GTT BID 10/14 2200 DC 10/16 OPH 2053 Budesonide/ 2 PUF BID 10/15 2200 AC 10/17 Formoterol Fumarate INH 0934 Dorzolamide HCl 1 GTT Q12H 10/17 0700 AC 10/17 OPH 0700 Dorzolamide HCl 1 GTT BID 10/14 2200 DC 10/16 OPH 2053 Enoxaparin Sodium 40 MG DAILY 10/14 1105 AC 10/17 SC 0922 Furosemide 20 MG DAILY 10/15 1000 AC 10/17 IV PUSH 0922 Latanoprost 1 GTT 2100 10/17 2100 AC OPH Latanoprost 1 GTT 1900 / 1900 DC 10/16 OPH 1918 Methylprednisolone 40 MG DAILY 10/16 1000 AC 10/17 IV 0922 Morphine Sulfate 2 MG Q1 NEEDED PRN 10/15 1415 AC 10/17 IV 0922 Oxycodone HCl 5 MG Q6 PRN 10/14 1115 AC 10/15 PO 0117 Sodium Chloride 1,000 ML Q13H 10/15 0345 DC 10/16 IV 0123 Tiotropium [place] 1 PUF DAILY 10/14 1357 AC 10/17 INH 0922 Vital Signs Date Time Temp Pulse Resp B/P B/P Pulse O2 O2 Flow FiO2 Mean Ox Delivery Rate 10/17 0540 97.0 73 20 150/84 94 10/17 0044 97 Nasal 55% Cannula 10/17 0000 96 55% 10/16 2225 97 Nasal 60% Cannula 10/16 2208 97.4 73 20 120/70 96 10/16 1600 Nasal 60% Cannula 10/16 1400 97.7 80 19 120/82 93 Intake & Output 10/17 1600 10/17 0800 10/17 0000 Intake Total 100 400 Output Total 250 200 Balance -150 200 Intake, IV 0 50 Intake, Oral 100 350 Number 0 Bowel Movements Output, Urine 250 200 On examination Patient is awake alert and oriented respiratory distress S1-S2 normal Lungs with diffuse wheezing. Very weak extremities Plan is continue with comfort management patient currently on comfort care.
[2016-10-17 14:40] VITALS: BP 110/58
--- NOTE | 2016-10-17 22:49 | NUR ---
SHIFT NOTE: PT ALERT AND ORIENTED BUT DROWSY AT TIMES. ON HI FLOW NASAL CANULA AT 60%, PER RESP CHANGED FROM 55% TO 60%. PT ON SPECIALITY MATTRESS. C/O PAIN TO R HIP, MEDICATED PER EMAR. SCHEDULED MEDICATIONS GIVEN. PT ABLE TO EAT SALAD AND PEACHES FOR DINNER. FAMILY AT BEDSIDE. SKIN INTACT BUT ECCHYMOSIS TO BUE AND BLE. +CMS AND PULSES TO R LEG. BED ALARM IN PLACE. SAFETY PRECAUTIONS MAINTAINED.
[2016-10-17 22:51] VITALS: BP 118/80
[2016-10-18 06:42] VITALS: BP 132/80
--- NOTE | 2016-10-18 06:48 | PN- Housestaff ---
Subjective Follow-up For: Right Hip Fracture COPD Exacerbation Subjective: Ms Lagos was seen and examined this morning. Resting comfortably in bed. Patient states that she feels better compared to last 24 hours. Continues to endorse pain in right hip. Pain is rated 7 out of 10 in severity. Worse with movement. She denies any fever, chills, nausea, vomiting. Continues to be on high flow oxygen 30.9%. Tolerating by mouth intake well. Review of Systems Constitutional: Reports: see HPI. Objective Last 24 Hrs of Vital Signs/I&O Vital Signs Date Time Temp Pulse Resp B/P B/P Pulse O2 O2 Flow FiO2 Mean Ox Delivery Rate 10/18 0642 98.2 100 18 132/80 96 Nasal 60% Cannula 10/18 0209 97 Nasal 60% Cannula 10/18 0000 96 Nasal 60% Cannula 10/17 2304 96 Nasal 60% Cannula 10/17 2251 98.3 80 20 118/80 96 Nasal Cannula 10/17 2156 94 Nasal 65% Cannula 10/17 1600 Nasal 60% Cannula 10/17 1543 93 Nasal 60% Cannula 10/17 1440 97.5 112 22 110/58 89 Nasal 45% Cannula 10/17 1229 92 Nasal 55% Cannula 10/17 0800 Nasal 55% Cannula Intake & Output 10/18 0800 06 0000 10/17 1600 Intake Total 600 120 Output Total 200 150 950 Balance -200 450 -830 Intake, IV 0 Intake, Oral 600 120 Number 0 Bowel Movements Output, Urine 200 150 950 Physical Exam General Appearance: Alert, Oriented X3, Cooperative Skin Temp/Moisture Exam: Warm/Dry Cardiovascular: Regular Rate, Normal S1, Normal S2 Lungs: Expiratory wheezing Abdomen: Normal Bowel Sounds, Soft, No Tenderness Neurological: Normal Speech Extremities: Limeted Movement in Right Lower extemity. Left Lower extremity diffuse Ecchymosis noted. , Right Leg shortened and Lateral rotated Vascular: Normal Pulses Current Medications: Current Medications Sig/Juan Carlos Start time Last Medication Dose Route Stop Time Status Admin Acetaminophen 325 MG Q6 PRN 10/14 1115 AC 10/14 PO 1137 Albuterol Sulfate 3 ML Q4P PRN 10/14 1630 AC 10/16 INH 0752 Albuterol Sulfate 2 PUF Q4P PRN 10/14 1400 AC 10/15 INH 0425 Alprazolam 0.5 MG TID 10/14 1600 AC 10/17 PO 10/21 1559 2053 Brimonidine Tartrate 1 GTT Q12H 10/17 0700 AC 10/18 OPH 0614 Budesonide/ 2 PUF BID 10/15 2200 AC 10/17 Formoterol Fumarate INH 2052 Dorzolamide HCl 1 GTT Q12H 10/17 0700 AC 10/18 OPH 0614 Enoxaparin Sodium 40 MG DAILY 10/14 1105 AC 10/17 SC 0922 Furosemide 20 MG DAILY 10/15 1000 AC 10/17 IV PUSH 0922 Latanoprost 1 GTT 2100 10/17 2100 AC 10/17 OPH 205 Methylprednisolone 40 MG DAILY 10/16 1000 AC 10/17 IV 0922 Morphine Sulfate 2 MG Q1 NEEDED PRN 10/15 1415 AC 10/18 IV 0421 Oxycodone HCl 5 MG Q6 PRN 10/14 1115 AC 10/15 PO 0117 Tiotropium [place] 1 PUF DAILY 10/14 1357 AC 10/17 INH 0922 Assessment/Plan Assessment: Ms Lagos is currently not a surgical candidate due to her current clinical status. Patient is to be maintained as comfort meaures due to her poor prognosis. She remain in mild/moderate respiratory distress despite high flow oxygen. Problem List: -Right sided hip fracture -Acute Hypoxic/Hypercarbic respiratory failure -Chronic respiratory failure -Emphysema -Elevated troponins, likely demand ischemia Plan: -Supplemental oxygen, taper as tolerated, goal > 92% -TRC with albuterol/ipratropium schedule -High flow oxygen -Watch off antibiotics -Bansal catheter -Aminophylline/Spiriva -Alprazolam 0.5mg PO TID PRN -Lasix 20mg IV Daily only while eating/drinking -Solumedrol 40mg IV Daily -Pain control with IV morphine 2mg Q1H PRN -Fentanly Patch: 25 mcg Q72 -Pulm Consult, following -Ortho consult, following -Regular diet -DVT PPx: Lovenox Problem List: 1. Hip fracture, right 2. COPD (chronic obstructive pulmonary disease) Pain Ratin Pain Location: Right Hip Pain Goal: Remain pain free Pain Plan: Morphine and fentanyl Tomorrow's Labs & Rationales: No Labs needed
--- NOTE | 2016-10-18 10:11 | PN- Pulmonary ---
Subjective HPI/Critical Care Issues: Ms Lagos was seen and examined this morning. Resting comfortably in bed. Continues to endorse pain in right hip. Pain is rated 7 out of 10 in severity. Worse with movement. She denies any fever, chills, nausea, vomiting. Continues to be on high flow oxygen 30.9%. Tolerating by mouth intake well. Review of Systems Constitutional: Reports: see HPI. Objective Current Medications: Current Medications Sig/Juan Carlos Start time Last Medication Dose Route Stop Time Status Admin Acetaminophen 325 MG Q6 PRN 10/14 1115 AC 10/14 PO 1137 Albuterol Sulfate 3 ML Q4P PRN 10/14 1630 AC 10/16 INH 0752 Albuterol Sulfate 2 PUF Q4P PRN 10/14 1400 AC 10/18 INH 0832 Alprazolam 0.5 MG TID 10/14 1600 AC 10/18 PO 10/21 1559 0831 Brimonidine Tartrate 1 GTT Q12H 10/17 0700 AC 10/18 OPH 0614 Budesonide/ 2 PUF BID 10/15 2200 AC 10/18 Formoterol Fumarate INH 0831 Dorzolamide HCl 1 GTT Q12H 10/17 0700 AC 10/18 OPH 0614 Enoxaparin Sodium 40 MG DAILY 10/14 1105 AC 10/18 SC 0831 Furosemide 20 MG DAILY 10/15 1000 AC 10/18 IV PUSH 0831 Latanoprost 1 GTT 2100 10/17 2100 AC 10/17 OPH 2053 Methylprednisolone 40 MG DAILY 10/16 1000 AC 10/18 IV 0831 Morphine Sulfate 4 MG Q1P PRN 10/18 0945 AC IV Morphine Sulfate 2 MG Q1 NEEDED PRN 10/15 1415 DC 10/18 IV 0928 Oxycodone HCl 5 MG Q6 PRN 10/14 1115 AC 10/15 PO 0117 Tiotropium [place] 1 PUF DAILY 10/14 1357 AC 10/18 INH 0831 Vital Signs & I&O Last 24 Hrs of Vitals and I&O: Vital Signs Date Time Temp Pulse Resp B/P B/P Pulse O2 O2 Flow FiO2 Mean Ox Delivery Rate 10/18 0920 98 Nasal 60% Cannula 10/18 0642 98.2 100 18 132/80 96 Nasal 60% Cannula 10/18 0209 97 Nasal 60% Cannula 10/18 0000 96 Nasal 60% Cannula 10/17 2304 96 Nasal 60% Cannula 10/17 2251 98.3 80 20 118/80 96 Nasal Cannula 10/17 2156 94 Nasal 65% Cannula 10/17 1600 Nasal 60% Cannula 10/17 1543 93 Nasal 60% Cannula 10/17 1440 97.5 112 22 110/58 89 Nasal 45% Cannula 10/17 1229 92 Nasal 55% Cannula Intake & Output 10/18 1600 10/18 0800 10/18 0000 Intake Total 600 Output Total 200 150 Balance -200 450 Intake, Oral 600 Output, Urine 200 150 Impression/Plan Impression/Plan Impression/Plan: Physical Exam General Appearance Alert, Oriented X3, Moderate Distress, not able to speak in full sentences Skin big bruise over left lower leg Skin Temp/Moisture Exam: Warm/Dry Sepsis Skin Exam (color): Normal for Ethnicity HEENT Atraumatic, PERRLA, EOMI, high flow oxygen Neck Supple, No JVD Lymphatic Cervical nl Cardiovascular Normal S1, Normal S2, tachycardia Lungs bilateral wheezes and ronchi Abdomen Normal Bowel Sounds, Soft Neurological Normal Tone, Sensation Intact, Cranial Nerves 3-12 NL Extremities right leg shortened and adducted This is an elderly lady with very severe COPD with preterminal emphysema was on 5-6 L of oxygen at rest, who has significant shortness of breath at rest, poor performance status now here with hip fracture with a fall Issues * Acute hypoxic and hypercarbic resp failure due to advancing terminal lung disease * Acute NSTMI due to terminal lung disease with sig hypoxia despite high oxygen supp at home * Pulm edema with CHF prob diastolic and systolic heart failure * Severe low back pain due to severe spinal stenosis and hip pain * Very severe emphysema with very poor pulmonary reserve with shortness of breath on rest, no obvious clinical exacerbation of COPD but patient has been on long-term steroids hence immunosuppressed * Chronic cor pulmonale * CKD * 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 artery stenosis with atherosclerosis * A new lung nodule which could be a slow-growing malignancy which has not been present at 2010 in a preterminal COPD patient at this time it's not clinically relevant * Degenerative joint disease with chronic arthritis on tramadol * Hypertension, hyperlipidemia, atherosclerosis, GERD and vitamin D deficiency * Chronic choledocholithiasis, previous appendectomy history, with recent biliary infection not clinically significant at this time in stable * Worsening performance status REC Discussed with patient before comfort care only COnt morphine 4 mg q1 hrs prn and dc all other narcotics Start fentanyl patch 25 mcg and if tolerated can increase to 50 mcg pathc PT not sure about hospice yet WIll discuss with the son if he can come in this afternoon aswell
[2016-10-18 14:18] VITALS: BP 116/78
--- NOTE | 2016-10-18 23:00 | NUR ---
AT 1929 PT STARTED SPITTING UP HER DINNER, C/O CHEST PAIN/ INDIGESTION SHE REPORTED AND WAS VISIBLY SOB. RESPIRATORY CALLED TO BEDSIDE. HR 106, O2 95% ON HIGH FLOW. DR WATERS CALLED TO BEDSIDE, NEW ORDERS FOR GI COCKTAIL AND NPO PENDING SWALLOW EVAL. THEN AT 2199, PT C/O SOB AGAIN, RESP AGAIN TO BS, HR ELEVATED, O2 80%. DR WATERS TO BS AND SPOKE WITH SON. NEW ORDERS FOR ATIVAN, MORPHINE PROVIDED EARLIER PER MD. BREATHING IMPROVED. HIGH FLOW O2 INCREASED TO 50L AT 100% WITH O2 95%. CONT TO MONITOR. RECEIVING NURSE MADE AWARE.
[2016-10-18 23:11] VITALS: BP 112/60
--- NOTE | 2016-10-18 23:13 | Event Note ---
Event Note Event Note: Around 7:45 PM, we were alerted by nursing staff that patient had been spitting up her dinner and was complaining of chest pain and indigestion. Vitals were SpO2 95% on HFNC and HR 106. Patient was seen and examined at bedside. She appeared slightly short of breath on HFNC. She reported that while eating her dinner she had developed chest discomfort and felt as if food is stuck in her chest which made it painful for her to eat. Bedside swallow evaluation was attempted. Patient coughed with thin liquids and reported pain. She was made NPO. Instructions were given to administer 2 mg of IV morphine that had been scheduled PRN. GI cocktail was ordered. Respiratory had already been called by nursing staff. Around 10:45 PM, we were alerted by nursing staff patient had developed worsening respiratory distress and desatted to 80s. Respiratory therapy and patient's son were at bedside. Patient was sitting up in bed and was in significant respiratory distress. Patient's code status and goals of care were confirmed with patient's son who reported that he still wants to keep the patient comfort measures, is not interested in any aggressive treatment and wants us to do whatever we can to keep her comfortable. It was clarified to him that morphine and benzodiazepines that we are giving for comfort can expedite her passing by leading to respiratory depression although they will help alleviate her symptoms in the short run. He expressed understanding and stated that he is OK with us giving more medications if necessary to keep her comfortable. Instructions were provided to continue morphine 2 mg IV Q1H PRN as previously ordered. Ativan 0.5 mg IV Q4H PRN was ordered.
[2016-10-19 06:16] VITALS: BP 118/60
--- NOTE | 2016-10-19 06:29 | PN- Housestaff ---
Subjective Follow-up For: Right Hip Fracture Subjective: Ms Lagos was seen and examined this morning. Appears like she is in a lot of respiratory distress. Although continues to remain on high flow oxygen she appears to have a hard time catching her breath. She is currently nothing by mouth owing to questionable aspiration risk this was done by the night team. Denies any fever, chills, nausea, vomiting. Patient states she is in no acute pain at the moment. Review of Systems Constitutional: Reports: see HPI. Objective Last 24 Hrs of Vital Signs/I&O Vital Signs Date Time Temp Pulse Resp B/P B/P Pulse O2 O2 Flow FiO2 Mean Ox Delivery Rate 10/19 0616 98.0 92 22 118/60 94 Nasal Cannula 10/19 0039 99 Nasal 100% Cannula 10/19 0000 88 100% 10/18 2311 98.2 90 18 112/60 97 Nasal Cannula 10/18 2301 94 Nasal 100% Cannula 10/18 2012 94 Nasal 60% Cannula 10/18 1632 99 Nasal 60% Cannula 10/18 1418 98.3 79 20 116/78 96 10/18 0920 98 Nasal 60% Cannula 10/18 0800 97 Nasal 60% Cannula 10/18 0642 98.2 100 18 132/80 96 Nasal 60% Cannula Intake & Output 10/19 0800 10/19 0000 10/18 1600 Intake Total 250 700 Output Total 200 200 600 Balance -200 50 100 Intake, Oral 250 700 Number 0 Bowel Movements Output, Urine 200 200 600 Physical Exam General Appearance: Alert, Moderate Distress Cardiovascular: Regular Rate, Normal S1, Normal S2 Lungs: Crackles Bilaterral Abdomen: Normal Bowel Sounds, Soft, No Tenderness Extremities: No Edema, Right foot edematous, extended and everted. Limited ovement. Left foot, eccymosis Lower extremity Current Medications: Current Medications Sig/Juan Carlos Start time Last Medication Dose Route Stop Time Status Admin Acetaminophen 325 MG Q6 PRN 10/14 1115 AC 10/14 PO 1137 Albuterol Sulfate 3 ML Q4P PRN 10/14 1630 AC 10/18 INH 2010 Albuterol Sulfate 2 PUF Q4P PRN 10/14 1400 AC 10/18 INH 0832 Alprazolam 0.5 MG TID 10/14 1600 AC 10/18 PO 10/21 1559 2214 Brimonidine Tartrate 1 GTT Q12H 10/17 0700 AC 10/19 OPH 0540 Budesonide/ 2 PUF BID 10/15 2200 AC 10/18 Formoterol Fumarate INH 2215 Dorzolamide HCl 1 GTT Q12H 10/17 0700 AC 10/19 OPH 0540 Enoxaparin Sodium 40 MG DAILY 10/14 1105 AC 10/19 SC 0803 Fentanyl Citrate 25 MCG Q72H 10/18 1045 AC 10/18 TOP 1053 Furosemide 20 MG DAILY 10/15 1000 AC 10/19 IV PUSH 0803 Latanoprost 1 GTT 2100 10/17 2100 AC 10/18 OPH 2217 Lorazepam 0.5 MG Q4P PRN 10/19 0815 AC IV Lorazepam 0.5 MG Q4P PRN 10/18 2300 DC 10/19 IV 0439 Methylprednisolone 40 MG DAILY 10/16 1000 AC 10/19 IV 0802 Morphine Sulfate 2 MG Q1P PRN 10/19 0815 AC IV Morphine Sulfate 2 MG Q1P PRN 10/18 1045 DC 10/19 IV 0802 Morphine Sulfate 4 MG Q1P PRN 10/18 0945 DC IV Morphine Sulfate 2 MG Q1 NEEDED PRN 10/15 1415 DC 10/18 IV 0928 Oxycodone HCl 5 MG Q6 PRN 10/14 1115 DC 10/15 PO 0117 Patient Medication 1 ED .STK-MED ONE 10/18 1410 DC Teaching ED 10/18 1411 Tiotropium [place] 1 PUF DAILY 10/14 1357 AC 10/18 INH 0831 Assessment/Plan Assessment: Ms Lagos is currently not a surgical candidate due to her current clinical status. Patient is to be maintained as comfort meaures due to her poor prognosis. She remain in mild/moderate respiratory distress despite high flow oxygen. Problem List: -Right sided hip fracture -Acute Hypoxic/Hypercarbic respiratory failure -Chronic respiratory failure -Emphysema -Elevated troponins, likely demand ischemia Plan: -Supplemental oxygen, taper as tolerated, goal > 92% -TRC with albuterol/ipratropium schedule -High flow oxygen -Watch off antibiotics -Bansal catheter -Aminophylline/Spiriva -Alprazolam 0.5mg PO TID PRN -Lasix 20mg IV Daily only while eating/drinking. -Solumedrol 40mg IV Daily -Pain control with IV morphine 2mg Q1H PRN -Fentanly Patch: 25 mcg Q72 -Pulm Consult, following -Regular NPO -DVT PPx: Lovenox Problem List: 1. Fall 2. Hip fracture, right 3. Emphysema lung Pain Ratin Pain Location: Right Hip Pain Goal: Remain pain free Pain Plan: Fentanyl and morphine Tomorrow's Labs & Rationales: NA
--- NOTE | 2016-10-19 10:18 | PN- Pulmonary ---
Subjective HPI/Critical Care Issues: Doing Worse Wishes to be comfortable Objective Current Medications: Current Medications Sig/Juan Carlos Start time Last Medication Dose Route Stop Time Status Admin Acetaminophen 325 MG Q6 PRN 10/14 1115 AC 10/14 PO 1137 Albuterol Sulfate 3 ML Q4P PRN 10/14 1630 AC 10/18 INH 2011 Albuterol Sulfate 2 PUF Q4P PRN 10/14 1400 AC 10/18 INH 0832 Alprazolam 0.5 MG TID 10/14 1600 AC 10/18 PO 10/21 1559 2214 Brimonidine Tartrate 1 GTT Q12H 10/17 0700 AC 10/19 OPH 0540 Budesonide/ 2 PUF BID 10/15 2200 AC 10/18 Formoterol Fumarate INH 2215 Dorzolamide HCl 1 GTT Q12H 10/17 0700 AC 10/19 OPH 0540 Enoxaparin Sodium 40 MG DAILY 10/14 1105 AC 10/19 SC 0803 Fentanyl Citrate 25 MCG Q72H 10/18 1045 AC 10/18 TOP 1053 Furosemide 20 MG DAILY 10/15 1000 AC 10/19 IV PUSH 0803 Latanoprost 1 GTT 2100 10/17 2100 AC 10/18 OPH 2217 Lorazepam 0.5 MG Q4P PRN 10/19 0815 AC IV Lorazepam 0.5 MG Q4P PRN 10/18 2300 DC 10/19 IV 0439 Methylprednisolone 40 MG DAILY 10/16 1000 AC 10/19 IV 0802 Morphine Sulfate 2 MG Q1P PRN 10/19 0815 AC IV Morphine Sulfate 2 MG Q1P PRN 10/18 1045 DC 10/19 IV 0802 Morphine Sulfate 4 MG Q1P PRN 10/18 0945 DC IV Oxycodone HCl 5 MG Q6 PRN 10/14 1115 DC 10/15 PO 0117 Patient Medication 1 ED .STK-MED ONE 10/18 1410 DC Teaching ED 10/18 1411 Tiotropium [place] 1 PUF DAILY 10/14 1357 AC 10/18 INH 0831 Vital Signs & I&O Last 24 Hrs of Vitals and I&O: Vital Signs Date Time Temp Pulse Resp B/P B/P Pulse O2 O2 Flow FiO2 Mean Ox Delivery Rate 10/19 0616 98.0 92 22 118/60 94 Nasal Cannula 10/19 0039 99 Nasal 100% Cannula 10/19 0000 88 100% 10/18 2311 98.2 90 18 112/60 97 Nasal Cannula 10/18 2301 94 Nasal 100% Cannula 10/19 2011 94 Nasal 60% Cannula 10/18 1632 99 Nasal 60% Cannula 10/18 1418 98.3 79 20 116/78 96 Intake & Output 10/19 1600 10/19 0800 10/19 0000 Intake Total 250 Output Total 200 200 Balance -200 50 Intake, Oral 250 Number 0 Bowel Movements Output, Urine 200 200 Impression/Plan Impression/Plan Impression/Plan: Physical Exam General Appearance Alert, Oriented X3, Moderate Distress, not able to speak in full sentences Skin big bruise over left lower leg Skin Temp/Moisture Exam: Warm/Dry Sepsis Skin Exam (color): Normal for Ethnicity HEENT Atraumatic, PERRLA, EOMI, high flow oxygen Neck Supple, No JVD Lymphatic Cervical nl Cardiovascular Normal S1, Normal S2, tachycardia Lungs bilateral wheezes and ronchi Abdomen Normal Bowel Sounds, Soft Neurological Normal Tone, Sensation Intact, Cranial Nerves 3-12 NL Extremities right leg shortened and adducted This is an elderly lady with very severe COPD with preterminal emphysema was on 5-6 L of oxygen at rest, who has significant shortness of breath at rest, poor performance status now here with hip fracture with a fall Issues * Acute hypoxic and hypercarbic resp failure due to advancing terminal lung disease * Acute NSTMI due to terminal lung disease with sig hypoxia despite high oxygen supp at home * Pulm edema with CHF prob diastolic and systolic heart failure * Severe low back pain due to severe spinal stenosis and hip pain * Very severe emphysema with very poor pulmonary reserve with shortness of breath on rest, no obvious clinical exacerbation of COPD but patient has been on long-term steroids hence immunosuppressed * Chronic cor pulmonale * CKD * 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 Pt wishes now to move from comfort care to Hospice inpatient and she is appropriate for it Please call Hospice consult. (I did discuss with afternoon babysitter) COnt morphine 4 mg q1 hrs prn Fentanyl and prn ativan Son will soon come in and he agrees with the plan
[2016-10-19 14:39] VITALS: BP 114/60
--- NOTE | 2016-10-27 15:41 | Discharge Summary ---
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 Vitals at the time of admission: temperature 98.1 pulse 122, respiration 26, BP 188/85, 95% on high flow oxygen Labs showed normal white count, sodium 141, potassium 3.9, normal LFTs, proBNP 4040, troponins, 0.18->0.28->0.31->0.27. She was intially admitted to the telemetry service and then tranfserred up to the general medical service on day three of admission. Below is a summary of the care she received: #Right Sided Hip Fracture Patient did receive a Orthopedic consultation on day one of admission. The patient was not a candidate for surgery due to end satge COPD. Patient did not want to be intubated and wished for no aggressive care. She expressed her wish to be comfortable. For pain management, pain was initially controlled with IV morphine PRN. On day 5 of admission a Fentanyl patch was added. #Elevated troponins, likely demand ischemia At the time of admission, She was given some IV Lasix, serial EKGs and troponin were also trended and performed. On day two of admission, telemetry monitoring was subsequently discontinued. #Acute Hypoxic/Hypercarbic respiratory failure Patient was initially started on IV Solumederol. Nebulizer treatments were administered as needed. She was also maintianed on supplemental oxygen. On day 6 of admission, the patient was converted to Hospice care. Allergies: Coded Allergies: Penicillins (Severe, HIVES, RASH 06/22/16) Uncoded Allergies: POLLENS (UNKNOWN 04/08/14) Pertinent Lab Results: EXAM TYPE: RAD - XRY-HIP 2-3 VIEWS, RIGHT EXAMINATION: XR PELVIS XR HIP, RIGHT CLINICAL INFORMATION: Fracture. COMPARISON: Scanogram from abdomen and pelvis CT 07/25/2016. TECHNIQUE: Single view pelvis, 2 views of the right hip. FINDINGS: There is diffuse osteopenia. There is a subcapital fracture of the proximal right femur with one shaft width superior displacement of the distal fragment. Deformity of the inferior pubic rami suggest old healed fractures. Linear lucency overlying the right superior pubic ramus is likely related to stool and gas in the low lying rectum. There is extensive atherosclerotic arterial calcification. IMPRESSION: Right-sided hip fracture. No other acute fractures are seen. DICTATED BY: BALTAZAR MINER MD EXAM TYPE: RAD - XRY-PORTABLE CHEST XRAY EXAMINATION: XR PORTABLE CHEST CLINICAL INFORMATION: Hypoxia/dyspnea. COMPARISON: Chest x-ray 06/22/2016. TECHNIQUE: Portable frontal view of the chest was obtained. FINDINGS: New small bilateral pleural effusions with adjacent basilar airspace opacities. Interstitium is slightly more prominent, particularly at the bases with findings suggesting mild interstitial pulmonary edema. There is no pneumothorax. Cardiac silhouette size is stable. There are no acute osseous findings. IMPRESSION: Small bilateral pleural effusions and mild interstitial pulmonary edema. There are bibasilar airspace opacities. DICTATED BY: ATIYA READ MD Disposition Summary Disposition Principal Diagnosis: -Right sided hip fracture Additional Diagnosis: -Acute Hypoxic/Hypercarbic respiratory failure -Chronic respiratory failure -Emphysema -Elevated troponins, likely demand ischemia Discharge Disposition: hospice - medical facilit Discharge Instructions General Discharge Information Code Status: Hospice Patient's Diet: As tolerated Patient's Activity: NA Follow-Up Instructions/Appts: NA Copies To: VENKATA LONG,HARDEEP Arredondo; SHIV LONG,LAUREN Keen; KELTON LONG,DEVANTE [place]; MARCELLUS LONG,YUDELKA Serrano
== END 2016-10-19 15:17 | disposition hospice, home (50) | DRG 280 ==
LOC: ERH 06:17 → 1NO 10:45 → ERHI 10:45 → 2NA 10:45 → ERH 11:02 → ERHI 11:02 → ENRESERV 11:52 → CANRESERV 11:52 → EDTRNSPT 12:42 → ENTRNSPT 12:42 → CMPTRNSPT 13:15 → EDBEDREQ 13:20 → ENRESERV 13:24 → ENTRNSPT 13:38 → EDTRNSPT 14:34 → EDTRNSPTTYP 14:34 → EDTRNSPTSTS 14:36 → 1NO 14:48 → CMPTRNSPT 14:57 → 1NO 15:11 → 2NA 10-15 21:25
PROVIDERS: Pediatrics; Student in an Organized Health Care Education/Training Program; ADMIT Internal Medicine
DX: I21.4 Non-ST elevation (NSTEMI) myocardial infarction (principal); J96.21 Acute and chronic respiratory failure with hypoxia; J96.22 Acute and chronic respiratory failure with hypercapnia; I50.43 Acute on chronic combined systolic (congestive) and diastolic (congestive) heart failure; S72.011A Unspecified intracapsular fracture of right femur, initial encounter for closed fracture; I13.0 Hypertensive heart and chronic kidney disease with heart failure and stage 1 through stage 4 chronic kidney disease, or unspecified chronic kidney disease; Z99.81 Dependence on supplemental oxygen; Z51.5 Encounter for palliative care; C34.90 Malignant neoplasm of unspecified part of unspecified bronchus or lung; I45.10 Unspecified right bundle-branch block; K21.9 Gastro-esophageal reflux disease without esophagitis; F41.9 Anxiety disorder, unspecified; Z66 Do not resuscitate; N18.9 Chronic kidney disease, unspecified; W19.XXXA Unspecified fall, initial encounter; Y92.009 Unspecified place in unspecified non-institutional (private) residence as the place of occurrence of the external cause
CPT/HCPCS: 1NP; 2NAP; 36415; 73502-RT; 82436; 87040; 93005; 93010; 96374; 96376; J1650; J1940; J2920; J2930; J3490

== ENCOUNTER 2016-10-19 15:17 | Inpatient (IN) | payer OTHER ==
[~2016-10-19 15:17] MED LIST changes: +DULERA 100 MCG/13 GM INH
--- NOTE | 2016-10-19 15:52 | History & Physical ---
DAI ROSEEDELSH 10/19/16 1549: General Information and HPI Chief Complaint: ADMIT TO HOSPICE Source of Information: patient, family, old records Exam Limitations: clinical condition Associated Symptoms: dyspnea, pain left hip History of Present Illness: Pt is an 86-year-old female with acute on chronic respiratory failure secondary to end-stage COPD, with right hip fracture secondary to fall, who is not a surgical candidate due to clinical condition. She also has pulmonary edema with CHF (mixed heart failure), CKD, severe vascular disease, new lung nodule. She had transitioned to comfort care and is now requesting hospice care. 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 No alcohol use, former smoker. Lived at home with home health aide assistance. Has living will. Functional Ability: Assistance with ADLs/IADLs Review of Systems Review of Systems Constitutional: Reports: see HPI. Exam & Diagnostic Data Last 24 Hrs of Vital Signs/I&O T-98, HR-88, RR-18, BP-114/60, o2 sat 90% on 75% oxygen Physical Exam General Appearance Alert, Mild Distress, dyspneic Skin mult. ecchymotic areas bilat. UEs HEENT Atraumatic, PERRLA, Mucous Membr. moist/pink Cardiovascular Regular Rate, Normal S1, Normal S2, No Murmurs Lungs Decreased breath sounds, dyspneic, RR-22, on high linsey O2 Abdomen Soft, No Tenderness Neurological able to follow directions Extremities No Cyanosis, No Edema, right leg shortened and adducted. Unable to move either extremity due to pain Last 24 Hrs of Labs/Jb: 10/15/16: WBC 8.6, Hgb 12, Hct 37, plt 104. Cl 95, CO2 34, Bun 45, Cr 1.1, troponins 0.28/0.31/0.27 10/14/16: ABG 7.33/61/101/31/96% on 75% hiflo Diagnostic Data CXR Results 10/14/16: IMPRESSION: Small bilateral pleural effusions and mild interstitial pulmonary edema. There are bibasilar airspace opacities. Other Results 10/14/16: hip xray: FINDINGS: There is diffuse osteopenia. There is a subcapital fracture of the proximal right femur with one shaft width superior displacement of the distal fragment. Deformity of the inferior pubic rami suggest old healed fractures. Linear lucency overlying the right superior pubic ramus is likely related to stool and gas in the low lying rectum. There is extensive atherosclerotic arterial calcification. Assessment/Plan Assessment: Pt is an 86-year-old female with acute on chronic respiratory failure secondary to end-stage COPD, with right hip fracture secondary to fall, who is not a surgical candidate due to clinical condition, opting now for hospice care. For pain/dyspnea, schedule morphine 2mg IV every 4 hours and also every 1 hour as needed Ativan 0.5mg IV every 6 hours scheduled and every 2 hours as needed for anxiety. Scopolamine and robinul as needed for congestion. Will continue eye drops per son request, IV steroids and IV lasix. Diet is regular, comfort feeding as tolerated. TRC ordered with continued high flow oxygen while waiting for family from out of state to arrive. Will then taper. SHIV LONG,[facility] 10/20/16 3180: Assessment/Plan Plan: Cont present care note as above
[2016-10-20 06:00] VITALS: BP 150/78
--- NOTE | 2016-10-20 12:18 | NUR ---
1000- PT DROWSY/ ARROUSABLE. RR 16. REMAINS ON HI FLOW O2 AT 75%. COMFORTABLE IN HIGH FOWLERS POSITION ONLY. SON AT BEDSIDE, REQUESTING TO SPEAK TO ELECTRICAL APPRENTICE REGARDING MORPHINE DRIP TODAY. PT GIVEN COMPLETE BED BATH AND MOUTH CARE.
--- NOTE | 2016-10-20 14:33 | PN- Hospice ---
See Addendum Subjective Subjective: Pt. arousable to loud speech. Last arturo morphine schedule increased to 2mg every 2 hours due to continued pain and dyspnea. Son reportedly agreeable to morphine infusion today but requesting dose kept at 1mg/hr until rest of family arrives this arturo to say goodbye. Pt reports she has pain "everywhere". Objective Last 24 Hrs of Vital Signs/I&O Vital Signs Date Time Temp Pulse Resp B/P B/P Pulse O2 O2 Flow FiO2 Mean Ox Delivery Rate 10/20 1227 Nasal 75% Cannula 10/20 0807 Nasal 75% Cannula 10/20 08 Nasal 75% Cannula 10/20 06 97.4 83 20 150/78 95 Nasal 75% Cannula 10/20 0000 Nasal 75% Cannula 10/19 1600 Nasal 75% Cannula Intake & Output 10/20 1600 10/20 0800 10/20 0000 Intake Total 40 Output Total 325 Balance -285 Intake, IV 40 Output, Urine 325 Physical Exam General Appearance: lethargic, mild distress, leaning forward, grasping handrails, eyes closed, mildly dyspneic and guarding position Respiratory: few scattered rhonchi, decreased breath sounds, mildly dyspneic Cardiovascular: regular rate/rhythm Abdomen: slightly distended, no tenderness Extremities: no edema, mottling to bilat feet, soles Neurologic/Psychiatric: lethargic/sleepy Other Physical Findings: hsieh with efren urine Assessment/Plan Assessment/Recommendations: Pt is an 86-year-old female with acute on chronic respiratory failure secondary to end-stage COPD, with right hip fracture secondary to fall, who is not a surgical candidate due to clinical condition, opting now for hospice care. Discontinue scheduled morphine and start morphine drip at 1mg/hr with titration orders per protocol. Discussed with nursing to make adjustments to morphine as needed to keep her comfortable, and to keep son informed when changes necessary. Continue high linsey oxygen for now. After family has arrived and visited will taper with respiratory.
[2016-10-21 07:58] VITALS: BP 120/60
--- NOTE | 2016-10-21 13:19 | NUR ---
10:00- PT DROWSY/ ARROUSABLE. RESTLESS/ ANXIOUS AT TIMES. MEDICATED WITH PRN ATIVAN WITH + EFFECT. COMPLETE BEDBATH GIVE. MORPHINE DRIP IN PLACE. TRIMBLE DRAINING DARK YELLOW URINE. REFUSED BREAKFAST. MOST COMFORTABLE IN HIGH FOWLERS POSITION. HI FLOW NC @ 70% IN PLACE. RR 16.
[2016-10-21 14:41] VITALS: BP 118/74
--- NOTE | 2016-10-21 15:34 | PN- Hospice ---
Subjective Subjective: Pt. lethargic but arousable. Denies pain or dyspnea. Staff report no oral intake and restlessness between ativan doses. Morphine drip at 1mg/hr. Review of Systems Constitutional: Reports: see HPI. Objective Last 24 Hrs of Vital Signs/I&O Vital Signs Date Time Temp Pulse Resp B/P B/P Pulse O2 O2 Flow FiO2 Mean Ox Delivery Rate 10/22 0629 97.8 80 18 120/66 95 Nasal Cannula 10/22 0100 98 Nasal 70% Cannula 10/22 0000 Nasal 70% Cannula 10/21 2238 Nasal 70% Cannula 10/21 1920 Nasal 70% Cannula 10/21 1700 94 Nasal 75% Cannula 10/21 1600 Nasal 75% Cannula 10/21 1441 97.9 79 16 118/74 96 Nasal 70% Cannula 10/21 1401 Nasal 75% Cannula Intake & Output 10/22 1600 10/22 0800 10/22 0000 Intake Total 120 0 Output Total 200 400 Balance -80 -400 Intake, IV 20 Intake, Oral 100 0 Output, Urine 200 400 Physical Exam General Appearance: no apparent distress, lethargic, ill-appearing female with hi flow oxygen in high Fowlers position Respiratory: slightly labored respirations, no congestion Cardiovascular: regular rate/rhythm Extremities: mottling to bilat soles of feet Assessment/Plan Assessment/Recommendations: Pt is an 86-year-old female with acute on chronic respiratory failure secondary to end-stage COPD, with right hip fracture secondary to fall, who is not a surgical candidate due to clinical condition, opting now for hospice care. Increased restlessness. Change ativan to 1mg IV every 4 hours, continue as necessary order also. Family does not wish to taper high flow oxygen, for pt comfort
--- NOTE | 2016-10-21 18:18 | NUR ---
181- PT HAD REIKI THERAPY.
[2016-10-22 06:29] VITALS: BP 120/66
--- NOTE | 2016-10-22 11:16 | NUR ---
PATIENT AT THIS TIME RESTING COMFOTABLY, REMAINS UNRESPOSNISIVE SINCE THE BEGINNING OF SHIFT, MORPHINE GTT RUNNING AT 1 MG/HR, RR 10-12, PATIENT BATHED BY MST, SKIN ASSESSED NO BREAKDOWN NOTED, LOTION APPLIED, SCHEDULED MEDICATIONS GIVEN, REMAINS ON SPECIALTY BED, ORAL CARE PREFORMED, CURRENTLY IN BED ON RIGHT SIDE, SAFETY AND COMFORT MAINTAINED.
--- NOTE | 2016-10-22 13:32 | PN- Att Addend ---
Attending Addendum Attending Brief Note PT stable on hospice sleeping REC cont current care Will follow
--- NOTE | 2016-10-22 15:04 | NUR ---
SHIFT NOTE: PATIENT RESTING COMFORTABLE ALL SHIFT, NO NEED FOR EXTRA MEDICATIONS, MAINTAINS MORPHINE GTT 1MG/HR, ATIVAN GIVEN SCHEDULED, TURN AND RESPOSITIONED Q 2 HOURS, TRIMBLE PATENT AND DRAINING, RESTING COMFORTABLY IN BED, SAFETY AND COMFORT MAINTAINED.
--- NOTE | 2016-10-22 16:00 | NUR ---
PT REMAINED COMFORTABLE DURING THIS RNS SHIFT. PT MAINLY UNRESPONSIVE, ALTHOUGH MOANS TO MOVEMENT AND STIMULI. PT ON HI FLOW NC AT 70%. PT SKIN INTACT, ECCHYMOSIS NOTED. MORPHINE GTT REMAINS @ 1MG/HR INTO RFA. SCHEDULED ATIVAN GIVEN AT 1800. NO ADDITIONAL MEDICATIONS. FAMILY VISITED FOR PERIOD OF TIME. PT TOLERATED TURN & REPOSITON WELL, SKIN CARE AND ORAL CARE PROVIDED. SAFETY PRECAUTIONS MAINTAINED.
--- NOTE | 2016-10-22 17:04 | PN- Hospice ---
Subjective Subjective: Pt. is asleep, appears comfortable, currently nonverbal. Nursing reports reduced restlessness with ativan changes. Not taking oral food/fluids, morphine drip continues at 1mg/hr. Review of Systems Constitutional: Reports: see HPI. Objective Last 24 Hrs of Vital Signs/I&O Vital Signs Date Time Temp Pulse Resp B/P B/P Pulse O2 O2 Flow FiO2 Mean Ox Delivery Rate 10/22 1600 Nasal 70% Cannula 10/22 0800 Nasal 70% Cannula 10/22 0629 97.8 80 18 120/66 95 Nasal Cannula 10/22 0100 98 Nasal 70% Cannula 10/22 0000 Nasal 70% Cannula 10/21 2238 Nasal 70% Cannula 10/21 1920 Nasal 70% Cannula Intake & Output 10/22 1600 10/22 0800 10/22 0000 Intake Total 8 120 0 Output Total 825 200 400 Balance -817 -80 -400 Intake, IV 8 20 Intake, Oral 0 100 0 Output, Urine 825 200 400 Physical Exam General Appearance: no apparent distress, comfortable Respiratory: no respiratory distress, decreased breath sounds, on high linsey O2 Cardiovascular: regular rate/rhythm Extremities: mottling bilat. soles of feet Assessment/Plan Assessment/Recommendations: Pt is an 86-year-old female with acute on chronic respiratory failure secondary to end-stage COPD, with right hip fracture secondary to fall, who is not a surgical candidate due to clinical condition, opting now for hospice care. Decreased restlessness, continue with current meds. Family does not wish to taper high flow oxygen, for pt comfort Also on glaucoma drops
[2016-10-23 07:25] VITALS: BP 146/64
--- NOTE | 2016-10-23 12:09 | PN- Att Addend ---
Attending Addendum Attending Brief Note Patient in no apparent distress. Patient's son at bedside. Patient's son at this time wishes to continue high flow oxygen. Plan Continue oxygen supplement Continue current hospice management Current Medications Sig/Juan Carlos Start time Last Medication Dose Route Stop Time Status Admin Acetaminophen 650 MG Q4P PRN 10/[address] Artificial Tears 2 GTT Q2P PRN 10/19 1545 AC OU Bisacodyl 10 MG DAILY NEEDED PRN 10/[address] Brimonidine Tartrate 1 GTT 1900,0700 10/19 1900 DC 10/22 OPH 0515 Dorzolamide HCl 1 GTT 1900,0700 10/19 1900 DC 10/22 OPH 0515 Fentanyl Citrate 25 MCG Q72H 10/21 1100 AC 10/21 TOP 1039 Furosemide 20 MG DAILY 10/20 1000 DC 10/22 IV PUSH 1101 Glycerin 2 SPRAY Q4P PRN 10/19 1545 AC PO Glycerin/Mineral Oil 1 FERDINAND Q8P PRN 10/19 1545 AC TOP Glycopyrrolate 400 MCG Q4P PRN 10/19 1545 AC IV Latanoprost 1 GTT 2100 10/19 2100 DC 10/21 OPH 2145 Lorazepam 1 MG Q4 10/21 1800 AC 10/23 IV 0631 Lorazepam 0.5 MG Q2P PRN 10/19 1545 AC 10/23 IV 0848 Methylprednisolone 40 MG DAILY 10/20 1000 AC 10/22 IV 1102 Morphine Sulfate 100 MG Q24H 10/20 1430 AC 10/22 Dextrose/Water 100 ML IV 1405 Morphine Sulfate See Dose [id number] PRN 10/20 1430 10/23 Insts (1) IV 0931 Morphine Sulfate 2 MG Q1P PRN 10/19 1545 AC 10/19 IV 1544 Scopolamine HBr 1 PAT Q72 PRN 10/19 1545 AC TOP Dose Instructions: (1)Morphine Sulfate: TITRATION PROTOCOL: Pain score 1-4 (grimace/moan) give 50% basal rate (max 10mg) as bolus IV or Sub-Q every 20 minutes PRN x3 doses; Pain 5-10 (yelling or visibly distressed) or labored respirations or respiration rate greater than 20/minute give 100% basal rate (max 10mg) as bolus IV or Sub-Q every 20 minutes PRN x3 doses. If above symptoms not improved, increase basal rate by 100% (not more than 10mg increments), and repeat protocol, inform MD. Vital Signs Date Time Temp Pulse Resp B/P B/P Pulse O2 O2 Flow FiO2 Mean Ox Delivery Rate 10/23 1140 Nasal 70% Cannula 10/23 0838 Nasal 80% Cannula 10/23 0725 97.8 96 20 146/64 99 Nasal Cannula 10/23 0057 96 Nasal 70% Cannula 10/23 0000 Nasal 70% Cannula 10/22 1600 Nasal 70% Cannula
--- NOTE | 2016-10-24 05:46 | NUR ---
PT UNRESPONSIVE. ON 70% HIGH FLOW O2 VIA NC. NO ACUTE RESP DISTRESS NOTED. RR 6-8. SHALLOW BREATHING. APPEARS PAINFREE. SCORING 0 ON FLACC PAIN SCALE. SIZEWISE IN PLACE. T & R Q2H OR PRN. SCHEDULED ATIVAN GIVEN ORDERED. MORPHINE GTT IN PROGRESS @ 1MG/HR. ORAL CARE GIVEN. WILL CONTINUE TO MONITOR.
[2016-10-24 06:28] VITALS: BP 142/66
--- NOTE | 2016-10-24 08:46 | PN- Att Addend ---
Attending Addendum Attending Brief Note Patient still remains on high flow oxygen. She is currently on morphine drip. Plan Continue current treatment Current Medications Sig/Juan Carlos Start time Last Medication Dose Route Stop Time Status Admin Acetaminophen 650 MG Q4P PRN 10/19 1545 AC UT Artificial Tears 2 GTT Q2P PRN 10/19 1545 AC OU Bisacodyl 10 MG DAILY NEEDED PRN 10/19 1545 AC UT Fentanyl Citrate 25 MCG Q72H 10/21 1100 AC 10/21 TOP 1039 Glycerin 2 SPRAY Q4P PRN 10/19 1545 AC PO Glycerin/Mineral Oil 1 FERDINAND Q8P PRN 10/19 1545 AC TOP Glycopyrrolate 400 MCG Q4P PRN 10/19 1545 AC IV Lorazepam 1 MG Q4 10/21 1800 AC 10/24 IV 0543 Lorazepam 0.5 MG Q2P PRN 10/19 1545 AC 10/23 IV 0848 Methylprednisolone 40 MG DAILY 10/20 1000 AC 10/23 IV 1235 Morphine Sulfate 100 MG Q24H 10/20 1430 AC 10/23 Dextrose/Water 100 ML IV 1431 Morphine Sulfate See Dose [id number] PRN 10/20 1430 AC 10/23 Insts (1) IV 0931 Morphine Sulfate 2 MG Q1P PRN 10/19 1545 AC 10/19 IV 1544 Scopolamine HBr 1 PAT Q72 PRN 10/19 1545 AC TOP Dose Instructions: (1)Morphine Sulfate: TITRATION PROTOCOL: Pain score 1-4 (grimace/moan) give 50% basal rate (max 10mg) as bolus IV or Sub-Q every 20 minutes PRN x3 doses; Pain 5-10 (yelling or visibly distressed) or labored respirations or respiration rate greater than 20/minute give 100% basal rate (max 10mg) as bolus IV or Sub-Q every 20 minutes PRN x3 doses. If above symptoms not improved, increase basal rate by 100% (not more than 10mg increments), and repeat protocol, inform MD. Vital Signs Date Time Temp Pulse Resp B/P B/P Pulse O2 O2 Flow FiO2 Mean Ox Delivery Rate 10/24 0813 92 Nasal 70% Cannula 10/24 0628 98.4 84 14 142/66 94 Nasal Cannula 10/24 0000 Nasal 70% Cannula 10/233 Nasal 70% Cannula 10/23 1930 Nasal 70% Cannula 10/23 1655 93 Nasal 70% Cannula 10/23 1445 Nasal 70% Cannula 10/23 1140 Nasal 70% Cannula
--- NOTE | 2016-10-25 03:59 | NUR ---
LATE ENTRY 2300. PT APPEARS TO BE ASLEEP, RR WNL, SHALLOW. NO S/SX OF PAIN OR DISTRESS AT THIS TIME. APPEARS COMFORTABLE. WILL MONITOR.
[2016-10-25 06:30] VITALS: BP 104/56
--- NOTE | 2016-10-25 12:28 | NUR ---
1228- SPOKE TO [facility] [employer]. DECLINES PT.
--- NOTE | 2016-10-25 12:32 | NUR ---
1000- PT UNRESPONSIVE TO VOICE/ TOUCH. HI FLOW NC AT 50%. RR 16. PT WITH NO S/SX PAIN, ANXIETY OR RESP DISTRESS. BREATHING NOTED TO BE SHALLOW. COMPLETE BED BATH GIVEN. TRIMBLE IN PLACE WITH SCANT YELLOW URINE NOTED. MORPHINE GTT IN PLACE AT 1 ML/HR.
--- NOTE | 2016-10-25 13:33 | NUR ---
1315- PT'S FAMILY SIGNED PAPERWORK AND TOOK ALL BELONGINGS. 1330- ALL LINES REMOVED. POST MORTEM CARE GIVEN. DISTRIBUTION CALLED. O
--- NOTE | 2016-10-25 19:01 | PN- Pulmonary ---
Subjective HPI/Critical Care Issues: Patient was seen and examined this morning She was comfortable Was on a morphine drip Family was at the bedside Exam unremarkable Subsequently patient peacefully. Family is aware. Objective Vital Signs & I&O Last 24 Hrs of Vitals and I&O: Vital Signs Date Time Temp Pulse Resp B/P B/P Pulse O2 O2 Flow FiO2 Mean Ox Delivery Rate 10/25 0930 Nasal 50% Cannula 10/25 0834 Nasal 70% Cannula 10/25 0800 Nasal 50% Cannula 10/25 0630 100.6 105 22 104/56 89 Nasal Cannula 10/25 0000 Nasal 70% Cannula 10/24 2218 Nasal 70% Cannula 10/24 1905 Nasal 70% Cannula Intake & Output 10/25 1600 10/25 0800 10/25 0000 Intake Total 8 7 Output Total 125 150 Balance -117 -143 Intake, IV 8 7 Intake, Oral 0 Number 0 Bowel Movements Output, Urine 125 150 Impression/Plan Impression/Plan Impression/Plan: Pt comfortable peacefully
--- NOTE | 2016-10-27 14:49 | Discharge Summary ---
Visit Information Visit Dates Admission Date: 10/19/16 Discharge Date: 10/25/16 Hospital Course Course Attending Physician: LAUREN CHANEY MD Primary Care Physician: DEVANTE MELARA MD Hospital Course: Pt is an 86-year-old female with acute on chronic respiratory failure secondary to end-stage COPD, with right hip fracture secondary to fall, who is not a surgical candidate due to clinical condition, who opted for hospice care. She was kept comfortable with fentanyl and a morphine drip for her pain and later dyspnea, and ativan for anxiety and scopolamine patch and Robinul for secretions , until she passed peacefully with family at bedside. Allergies: Coded Allergies: Penicillins (Severe, HIVES, RASH 06/22/16) Uncoded Allergies: POLLENS (UNKNOWN 04/08/14) Disposition Summary Disposition Principal Diagnosis: Acute on chronic respiratory failure Chronic obstructive pulmonary disease Femur fracture, right, closed Additional Diagnosis: Hypertension Discharge Disposition: Discharge Instructions General Discharge Information Code Status: Hospice Patient's Diet: n/a Patient's Activity: n/a Follow-Up Instructions/Appts: n/a Copies To: DEVANTE MELARA MD
== END 2016-10-25 11:45 | disposition expired | DRG 189 ==
LOC: 2NA 15:17
PROVIDERS: ADMIT Internal Medicine Pulmonary Disease
DX: J96.20 Acute and chronic respiratory failure, unspecified whether with hypoxia or hypercapnia (principal); Z99.81 Dependence on supplemental oxygen; J44.9 Chronic obstructive pulmonary disease, unspecified; Z51.5 Encounter for palliative care; Z66 Do not resuscitate; W19.XXXD Unspecified fall, subsequent encounter; I10 Essential (primary) hypertension; H40.9 Unspecified glaucoma; K21.9 Gastro-esophageal reflux disease without esophagitis; K80.20 Calculus of gallbladder without cholecystitis without obstruction; E55.9 Vitamin D deficiency, unspecified; F41.9 Anxiety disorder, unspecified; Z85.118 Personal history of other malignant neoplasm of bronchus and lung; Z87.891 Personal history of nicotine dependence; S72.011G Unspecified intracapsular fracture of right femur, subsequent encounter for closed fracture with delayed healing; M85.89 Other specified disorders of bone density and structure, multiple sites
CPT/HCPCS: J1940; J2270; J2920